=== PATIENT | female | born 1975 | race Caucasian/White ===

== ENCOUNTER 2023-06-25 10:08 | Outpatient (CLI) | payer BC, SELFPAY | END 2023-06-25 10:09 | disposition home or self-care (01) | PROVIDERS: PCP Physician Assistant Medical; Visit Provider Family Medicine | DX: Z00.00 Encounter for general adult medical examination without abnormal findings (principal); Z13.6 Encounter for screening for cardiovascular disorders; Z13.29 Encounter for screening for other suspected endocrine disorder | CPT/HCPCS: 80053; 80061; 84443 ==

== ENCOUNTER 2023-07-05 07:27 | Outpatient (CLI) | payer BC, SELFPAY ==
--- NOTE | 2023-07-05 07:45 | CRLHL7_ITS ---
For Patients: As a result of the Cures Act, medical imaging exams and procedure reports are released immediately into your electronic medical record. You may view this report before your referring provider. If you have questions, please contact your health care provider. BILATGERAL DIAGNOSTIC MAMMOGRAM WITH COMPUTER-AIDED DETECTION AND TOMOSYNTHESIS CLINICAL HISTORY: RIGHT breast lump. COMPARISON: 05/25/2018, 12/07/2008. TECHNIQUE: Digital BILATERAL mammogram in 4 projections. Real-time ultrasound imaging of RIGHT breast with imaging documentation. BREAST COMPOSITION: Scattered fibroglandular densities. FINDINGS: 3D CC/MLO BILATERAL mammogram images submitted. No suspicious masses or architectural distortion. Benign intramammary lymph node RIGHT breast. No suspicious calcifications. Targeted RIGHT breast ultrasound performed in the area of concern at 11 o`clock 4 cm from the nipple. Normal breast tissue noted. No suspicious findings. IMPRESSION: No evidence of malignancy. RECOMMENDATIONS: Annual bilateral screening mammography. BI-RADS Category 2: Benign Results and recommendations discussed with the patient. Dictated by Mason Patterson MD @ 07/05/2023 8:47:06 AM DARRIN/gera DW/Dictated by: Mason Patterson MD @ 07/05/2023 8:47:00 AM (Electronically Signed)
--- NOTE | 2023-07-05 08:15 | CRLHL7_ITS ---
For Patients: As a result of the Century Cures Act, medical imaging exams and procedure reports are released immediately into your electronic medical record. You may view this report before your referring provider. If you have questions, please contact your health care provider. PLEASE SEE BILATERAL BREAST DIAGNOSTIC MAMMOGRAM OF SAME DAY. CRL:georgi EDWAR/Dictated by: Mason Patterson MD @ 07/05/2023 8:47:00 AM (Electronically Signed)
== END 2023-07-05 07:28 | disposition home or self-care (01) ==
LOC: MAMMO 07:28
PROVIDERS: PCP Physician Assistant Medical; Visit Provider Family Medicine
DX: N63.10 Unspecified lump in the right breast, unspecified quadrant (principal)
CPT/HCPCS: 76642; 77066; G0279

== ENCOUNTER 2023-07-28 16:57 | Outpatient (CLI) | payer BC, SELFPAY ==
[2023-07-28 22:13] LABS: Chlamydia DNA Amplified* NOT DETECTED (No Detected); GC DNA Amplified* NOT DETECTED (No Detected)
== END 2023-07-28 16:58 | disposition home or self-care (01) ==
PROVIDERS: PCP Physician Assistant Medical; Visit Provider Physician Assistant Medical
DX: R53.83 Other fatigue (principal); R74.8 Abnormal levels of other serum enzymes
CPT/HCPCS: 80076; 82306; 85730; 86617; 86703; 86803; 87491; 87591

== ENCOUNTER 2023-08-02 15:40 | Outpatient (CLI) | payer BC, SELFPAY ==
--- NOTE | 2023-08-02 16:00 | CRLHL7_ITS ---
For Patients: As a result of the Century Cures Act, medical imaging exams and procedure reports are released immediately into your electronic medical record. You may view this report before your referring provider. If you have questions, please contact your health care provider. INDICATION: MENORRHAGIA COMPARISON: none TECHNIQUE: 2D peck scale and color Doppler images were acquired of the pelvis using a transabdominal and transvaginal approach. FINDINGS: Sonographic images demonstrate a normal size and smooth outer contour of the uterus. Uterus measures 10.2 cm in length by 4.6 cm in AP diameter by 4.8 cm in transverse dimension. The myometrium has a heterogeneous echotexture. Intramural fibroid is present within the left mid uterus measuring 1.5 x 0.9 x 1.3 cm. The endometrial lining measures 10 mm in composite thickness. Endometrial cyst is present measuring 5 x 3 x 4 millimeters. The right ovary measures 2.2 x 1.7 x 1.6 cm in size and the left ovary measures 3.8 x 2.4 x 3.7 cm. The ovaries demonstrate normal arterial and venous blood flow on color Doppler analysis. There are no suspicious fluid collections within the cul-de-sac. Simple left ovarian cyst is present measuring 2.7 x 2.5 x 2.6 cm. IMPRESSION: Heterogeneous endometrium measuring 10 millimeters with an associated 5 millimeter endometrial cyst. 1.5 cm intramural fibroid. 2.7 cm simple left ovarian cyst. Dictated by Mason Patterson MD @ 08/05/2023 12:12:15 PM (Electronically Signed)
== END 2023-08-02 15:41 | disposition home or self-care (01) ==
LOC: US 15:43
PROVIDERS: PCP Physician Assistant Medical; Visit Provider Physician Assistant Medical
DX: N92.0 Excessive and frequent menstruation with regular cycle (principal); R93.89 Abnormal findings on diagnostic imaging of other specified body structures; D25.1 Intramural leiomyoma of uterus; N83.202 Unspecified ovarian cyst, left side; R74.8 Abnormal levels of other serum enzymes
CPT/HCPCS: 76830; 76856

== ENCOUNTER 2023-08-27 08:41 | Outpatient (CLI) | payer BC, SELFPAY ==
--- NOTE | 2023-08-27 10:42 | W.ANESCHARGE ---
Anesthesia Charges Start Date/Time Anesthesia Start Date: 08/27/23 Anesthesia Start Time: 09:56 Stop Date/Time Anesthesia Stop Date: 08/27/23 Anesthesia Stop Time: 10:38
== END 2023-08-27 08:42 | disposition home or self-care (01) ==
LOC: OP CLINIC 08:41
PROVIDERS: PCP Physician Assistant Medical; Visit Provider Surgery
DX: Z12.11 Encounter for screening for malignant neoplasm of colon (principal); K63.5 Polyp of colon; K64.9 Unspecified hemorrhoids; K57.30 Diverticulosis of large intestine without perforation or abscess without bleeding; Z86.010 Personal history of colon polyps; K21.9 Gastro-esophageal reflux disease without esophagitis
CPT/HCPCS: 00731; 43239; 45385; J2704

== ENCOUNTER 2023-09-14 07:59 | Emergency (ER) | payer OTHER, BC, SELFPAY ==
[2023-09-14 08:03] VITALS: BP 136/108; PULSE 80; RESP 16; TEMP 35.6; O2SAT 94; BMI 36.6
--- NOTE | 2023-09-14 08:12 | ED_ITS ---
HPI - General Adult General Time Seen by Provider: 08:12 Date Seen: 09/14/23 Chief complaint: Laceration/Wound Stated complaint: finger laceration Time Seen by Provider: 09/14/23 08:11 Source: patient Mode of arrival: ambulatory Limitations: no limitations History of Present Illness HPI narrative: Mildly is a 48-year-old female presents emergency department via private car with a right finger laceration. 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 Patient is left-hand dominant. Patient has bleeding controlled. Related Data Home Medications Medication Instructions Recorded Confirmed albuterol sulfate 90 mcg/actuation 2 inhalation PRN 06/25/23 09/09/23 aerosol inhaler sumatriptan succinate 25 mg tablet 25 mg PO 06/25/23 09/09/23 calcium carbonate 200 mg calcium 200 mg PO BID 08/27/23 09/09/23 (500 mg) chewable tablet (Tums) Previous Rx's Medication Instructions Recorded ipratropium 0.5 mg-albuterol 3 mg 1 ml inhalation QID #90 mL 06/25/23 (2.5 mg base)/3 mL nebulization soln Allergies Allergy/AdvReac Type Severity Reaction Status Date / Time bee venom protein (honey bee) Allergy Severe Verified 09/14/23 08:03 levofloxacin Allergy Severe tendon Verified 09/14/23 08:03 rupture morphine Allergy Severe Verified 09/14/23 08:03 amoxicillin Allergy Intermediate Hives Verified 09/14/23 08:03 Review of Systems Status of ROS: Reports: 10 or more systems reviewed and unremarkable except as noted in History and below [facility] Medical History (Updated 09/09/23 @ 14:49 by Chani Boudreaux PA-C) History of miscarriage ?Z87.59 - Personal history of other complications of , childbirth and the puerperium (ICD-10) History of squamous cell carcinoma ?Z85.89 - Personal history of malignant neoplasm of other organs and systems (ICD-10) Asthma ?J45.909 - Unspecified asthma, uncomplicated (ICD-10) Surgical History (Updated 09/09/23 @ 14:38 by Chani Boudreaux PA-C) History of esophagogastroduodenoscopy (EGD) (07/2023) ?Z98.890 - Other specified postprocedural states (ICD-10) History of tonsillectomy ?Z90.89 - Acquired absence of other organs (ICD-10) History of hernia repair ?Z98.890 - Other specified postprocedural states (ICD-10) ?Z87.19 - Personal history of other diseases of the digestive system (ICD-10) History of cholecystectomy ?Z90.49 - Acquired absence of other specified parts of digestive tract (ICD- 10) Family History (Updated 07/29/23 @ 17:27 by Chani Boudreaux PA-C) Other Diabetes High blood pressure Lung cancer Melanoma Pancreatic cancer Throat cancer Social History Non-prescribed substance use: denies use Little interest or pleasure in doing things: several days Feeling down, depressed, or hopeless: not at all Exam Narrative: Exam Narrative: General: No obvious distress sitting comfortably HEENT: Pupils equal round reactive to light. Extraocular muscles intact Heart: Normal sinus rhythm S1-S2 Abdomen: Soft nontender Muscle skeletal: Right index finger. Palmar side, at the DIP 1 cm laceration, active extension and flexion Neuro: Alert awake and oriented x3 Const: Vital Signs, click to edit/add: Vital Signs - 24 hr 09/14/23 08:03 Temperature 96.0 F L Pulse Rate [Pulse Oximeter] 80 Respiratory Rate 16 Blood Pressure [Le ft Upper Arm] 136/108 H Pulse Oximetry 94 Oxygen Delivery Me thod Room Air Course Course ED Course: 8:30 AM: AIDET performed, workup will include laceration repair, patient is up-to-date on her tetanus status, please see procedure note. Patient has full range of motion, no concern for tendon injury at this time. Reevaluation(s) Time of Reevaluation #1: 08:45 Reevaluation #2: Laceration repair complete, patient did well, patient to have sutures removed in 7-10 days time, at same-day Clinic or Urgent Care or primary care provide, written instructions given, reasons to return give. Vital Signs Vital signs: Initial Vital Signs Temperature 96.0 F L 09/14/23 08:03 Temperature Source Temporal Artery Scan 09/14/23 08:03 Pulse Rate 80 09/14/23 08:03 Pulse Rhythm Regular 09/14/23 08:03 Pulse Strength 3+ Normal 09/14/23 08:03 Respiratory Rate 16 09/14/23 08:03 Blood Pressure 136/108 H 09/14/23 08:03 Blood Pressure Mean 117 H 09/14/23 08:03 Blood Pressure Position Supine 09/14/23 08:03 Pulse Oximetry 94 09/14/23 08:03 Oxygen Delivery Method Room Air 09/14/23 08:03 Vital Signs Temperature 96.0 F L 09/14/23 08:03 Pulse Rate 80 09/14/23 08:03 Respiratory Rate 16 09/14/23 08:03 Blood Pressure 136/108 H 09/14/23 08:03 Pulse Oximetry 94 09/14/23 08:03 Oxygen Delivery Method Room Air 09/14/23 08:03 Temperature 96.0 F L 09/14/23 08:03 Pulse Rate 80 09/14/23 08:03 Respiratory Rate 16 09/14/23 08:03 Blood Pressure 136/108 H 09/14/23 08:03 Pulse Oximetry 94 09/14/23 08:03 Oxygen Delivery Method Room Air 09/14/23 08:03 Medications Administered Medications: Discontinued Medications Generic Name Dose Route Start Last Admin Trade Name Freq PRN Reason Stop Dose Admin Lidocaine HCl 30 ml 09/14/23 08:16 09/14/23 08:23 Lidocaine 1 % Pf 30 Ml INJECTION 30 ml ONCE PRN Administration Discharge Plan Discharge Instructions: Finger Laceration (ED) Additional Instructions: Bacitracin to the wound daily, to have sutures removed in 7-10 days time. Return if worsening swelling, redness or discharge. Activity Level: No Restrictions Prescriptions: No Action calcium carbonate [Tums] 200 mg calcium (500 mg) tablet,chewable 200 mg PO BID sumatriptan succinate 25 mg tablet 25 mg PO albuterol sulfate 90 mcg/actuation HFA aerosol inhaler 2 inhalation PRN ipratropium-albuterol 0.5 mg-3 mg(2.5 mg base)/3 mL solution for nebulization 1 ml inhalation QID Qty: 90 2RF Follow Up/Referrals: Chani Boudreaux PA-C [Primary Care Provider] - Stand Alone Forms: [facility] Info Instructions Procedures Laceration Laceration 1: Pre procedure diagnosis: finger laceration Post procedure diagnosis: right index finger laceration. Written consent by: patient Site marking: site marked Verification/time out: correct patient Name of person performing procedure: Reginaldo Hester Site: hand (right index finger) Side (If applicable): right Description: linear Depth: simple, single layer Local Anesthetic: lidocaine 1% Pre-repair: wound explored Skin layer closed with: nylon Size (cm): 4-0 Number of sutures: 3 Technique: simple, interrupted
[2023-09-14] MEDS: LIDOCAINE 1 % PF 30 ML INJECTION (08:23)
== END 2023-09-14 09:03 | disposition home or self-care (01) ==
LOC: ED 08:47
PROVIDERS: Emergency Provider Student in an Organized Health Care Education/Training Program; PCP Physician Assistant Medical
DX: S61.210A Laceration without foreign body of right index finger without damage to nail, initial encounter (principal); W26.0XXA Contact with knife, initial encounter; Y93.G3 Activity, cooking and baking; Y92.219 Unspecified school as the place of occurrence of the external cause; Y99.0 Civilian activity done for income or pay
CPT/HCPCS: 12001; 99283; 99284; J2001

== ENCOUNTER 2023-09-15 06:13 | Day surgery (SDC) | payer BC, SELFPAY ==
[2023-09-15] MEDS: LACTATED RINGERS 1000 ML 1,000 ML 100 ML IV (06:20)
[2023-09-15 06:30] VITALS: BP 113/85; PULSE 79; RESP 16; TEMP 36.6; O2SAT 95; BMI 37.0
[2023-09-15 06:31] LABS: Ur HCG Qualitative* Negative (Negative)
[2023-09-15] MEDS: SODIUM CHLORIDE 0.9 % (FLUSH) 10 ML SYRINGE IVF (06:35)
--- NOTE | 2023-09-15 06:55 | W.PM.H&PU ---
History & Physical Update History & Physical Update H&P Updates: Maude had an injury at work yesterday. She lacerated her right index finger while cutting a bagel. It was repaired at [place] [facility], 3 stitches required. No other interval changes to her health history since the last time we spoke.
[2023-09-15 07:17] LABS: Hemoglobin* 12.7 gm/dL (12.0-16.0)
--- NOTE | 2023-09-15 07:22 | W.PM.GYNPROC ---
Procedure Note Time Seen by Provider: 07:22 Date of procedure: 09/15/23 Procedure Description: Preoperative diagnosis: 48 year-old who has abnormal uterine bleeding - heavy menses, likely secondary to uterine polyp. Postoperative diagnosis: Same Procedure: Hysteroscopy, dilation and curettage, and Mirena IUD insertion for medical management of heavy menstrual bleeding. Anesthesia: Conscious sedation with paracervical block. Surgeon:Paloma Taylor MD Estimated blood loss: 5 mL UOP: 25 cc IVF: 500 cc Specimen: Endometrial curettings to pathology. Findings: Exam under anesthesia: Cervix palpates normal. Uterus: anteverted position, 7 week size, mobile, without nodularity/masses palpable. Adnexa were without fullness or nodularity. On hysteroscopy: Thickened endometrial lining. Possible sessile polyp on left posterior uterine surface. Procedure: Maude was taken to the operating where conscious sedation was found to be adequate. She was placed in the dorsal lithotomy position. An exam under anesthesia was performed with findings stated above. She was then prepped and draped in normal sterile manner. A bivalve metal speculum was placed in the vaginal canal. The cervix and vaginal canal appear normal. A paracervical block was placed using 1% lidocaine with epinephrine: 5 mL injected at the 4 and 8 o'clock positions on the cervix. The anterior lip of the cervix was then grasped with a long Allis clamp. The cervix was dilated to Hegar 6. The uterus sounded to 10 cm. The hysteroscope advanced into the uterus and a diagnostic hysteroscopy was performed with findings stated above. Normal saline was used as the insufflation medium. The soft tissue shaver was used to obtain global sampling. The hysteroscope was then removed. Fluid deficit at the end of the procedure 200 mL. Attention was then turned towards Mirena IUD insertion. The IUD is loaded into the insertion tube, inserted to the sounded depth, and the IUD is deployed. Insertion tube was removed. Strings are trimmed to 3 cm. There were no complications with insertion. Allis clamp was removed from the uterus and cervix. Excellent hemostasis noted. Nothing was used for hemostasis. The patient tolerated the procedure well. Sponge, lap and instruments counts were correct at the end of the procedure. The patient was awakened from anesthesia and taken to the recovery area in stable condition. Surgical debrief performed at the end of the procedure.
[2023-09-15 07:54] VITALS: BP 122/74; PULSE 74; RESP 16; TEMP 36.3; O2SAT 95
--- NOTE | 2023-09-15 08:03 | W.ANESCHARGE ---
Anesthesia Charges Start Date/Time Anesthesia Start Date: 09/15/23 Anesthesia Start Time: 07:14 Stop Date/Time Anesthesia Stop Date: 09/15/23 Anesthesia Stop Time: 07:55
--- NOTE | 2023-09-15 08:04 | W.ANESCHARGE ---
Anesthesia Charges Start Date/Time Anesthesia Start Date: 09/15/23 Anesthesia Start Time: 07:14 Stop Date/Time Anesthesia Stop Date: 09/15/23 Anesthesia Stop Time: 07:55
[2023-09-15 08:09] VITALS: BP 118/69; PULSE 68; RESP 16; O2SAT 96
[2023-09-15] MEDS: IBUPROFEN 600 MG TABLET PO (08:20)
[2023-09-15 08:24] VITALS: BP 130/77; PULSE 66; RESP 16; O2SAT 96
[2023-09-15 08:39] VITALS: BP 123/79; PULSE 60; RESP 16; O2SAT 98
--- NOTE | 2023-09-15 09:19 | SUR.OPER ---
Deficit 200
== END 2023-09-15 09:05 | disposition home or self-care (01) ==
PROVIDERS: PCP Physician Assistant Medical; Visit Provider Obstetrics & Gynecology
PROC: 0UDB8ZZ Extraction of Endometrium, Via Natural or Artificial Opening Endoscopic (ICD-10-PCS; CPT 58558; principal; 2023-09-15 07:15)
DX: N92.0 Excessive and frequent menstruation with regular cycle (principal); N93.8 Other specified abnormal uterine and vaginal bleeding; N84.0 Polyp of corpus uteri; Z30.430 Encounter for insertion of intrauterine contraceptive device; E66.9 Obesity, unspecified; Z68.37 Body mass index [BMI] 37.0-37.9, adult
CPT/HCPCS: 58558; 58300; 00952; 36415; 81025; 85018; 86850; 86900; 86901; 88305; 88342; A9270; J1885; J2250; J2405; J2704; J3010; J7120; J7298

== ENCOUNTER 2024-01-28 14:00 | Outpatient (RCR) | payer BC, SELFPAY | END 2024-05-27 23:59 | disposition home or self-care (01) | PROVIDERS: PCP Physician Assistant Medical; Visit Provider Nurse Practitioner Family | DX: M54.2 Cervicalgia (principal); G89.29 Other chronic pain; M54.50 Low back pain, unspecified; Z74.09 Other reduced mobility; R29.898 Other symptoms and signs involving the musculoskeletal system; Z51.89 Encounter for other specified aftercare | CPT/HCPCS: 97110; 97140; 97162 ==

== ENCOUNTER 2024-11-29 08:16 | Outpatient (CLI) | payer BC, SELFPAY ==
--- NOTE | 2024-11-29 08:30 | MR_ITS ---
EXAM: MRI of the LEFT KNEE, without contrast CLINICAL HISTORY: Ongoing left knee pain, swelling, stiffness. Evaluate for lateral meniscal tear and patellar fracture. COMPARISONS: Plain radiographs 11/20/2024. TECHNICAL: MR sequences of the left knee: sagittals: PD, PDFS coronals: PD, STIR axials: PD, T2 FS CONTRAST: None SEDATION: None FINDINGS: Bones: No fracture, bone marrow contusion, or other suspicious bone marrow signal abnormality. 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 Retinacula: The medial and lateral retinacula are intact. Fat pads: The infrapatellar, quadriceps, and prefemoral fat pads are unremarkable. Knee joint: Effusion: Small left knee joint effusion. Popliteal cyst: Small perforated popliteal cyst. Intra-articular bodies: None. Posteromedial corner: The semimembranosus and pes anserine tendons are intact. Medial compartment: Medial meniscus: Intact. Cartilage: 7 x 7 mm area of slight grade II chondromalacia over the weight- bearing portion of the medial femoral condyle. Lateral compartment: Lateral meniscus: Intact. Cartilage: 1.1 x 1.1 cm area of grade III chondromalacia over the central portion of the lateral tibial plateau and a 1.1 x 0.5 cm area of grade III chondromalacia over the posterior weightbearing portion of the lateral femoral condyle. Ligaments: Anterior cruciate ligament: Intact. Posterior cruciate ligament: Intact. Medial collateral ligament: Intact. Posterior oblique ligament: Intact. Fibular collateral ligament: Intact. Posterolateral corner: The distal biceps femoris tendon, iliotibial band, popliteus tendon, popliteus muscle, popliteofibular ligament, and arcuate ligament are intact. Extensor mechanism: Patellar tendon: Intact. Quadriceps tendon: Intact. IMPRESSION: 1. 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 2. 1.1 x 1.1 cm area of grade III chondromalacia over the central portion of the lateral tibial plateau and a 1.1 x 0.5 cm area of grade III chondromalacia over the posterior weightbearing portion of the lateral femoral condyle. 3. 7 x 7 mm area of slight grade II chondromalacia over the weight-bearing portion of the medial femoral condyle. 4. Small left knee joint effusion. Small perforated popliteal cyst. 5. No ligamentous injury or meniscal tear of the left knee. RCB Electronically signed on 11/29/2024 10:44:00 AM by Fabrizio Vivar M.D.
== END 2024-11-29 08:17 | disposition home or self-care (01) ==
LOC: MRI 08:18
PROVIDERS: PCP Physician Assistant Medical; Visit Provider Physician Assistant Surgical
DX: M25.562 Pain in left knee (principal); M22.42 Chondromalacia patellae, left knee; M94.262 Chondromalacia, left knee; M25.462 Effusion, left knee; M71.22 Synovial cyst of popliteal space [Baker], left knee; S89.92XA Unspecified injury of left lower leg, initial encounter
CPT/HCPCS: 73721

== ENCOUNTER 2025-01-08 19:37 | Emergency (ER) | payer BC, SELFPAY ==
[2025-01-08 19:43] VITALS: BP 136/85; PULSE 85; RESP 16; TEMP 36.9; O2SAT 95; BMI 43.2
--- OUTSIDE RECORDS SUMMARY | 2025-01-08 19:53 | XMS_ITS | Clinical Summary ---
Author Organization [facility] Address [address] [place] [id number] Care Team Providers Care Itinerant Teacher Assistant Name Role Phone Clinic, Marylu Sargent Unavailable [phone] Chani Boudreaux PA-C Primary Care Provider Allergies Active Allergy Reactions Criticality Noted Date Comments Bees 03/24/2017 Levaquin Swelling 05/05/2013 Morphine Sulfate Shortness Of Breath High 05/05/2013 Penicillins 05/06/2013 Adhesive Tape 03/24/2017 PAPER TAPE Medications loratadine (CLARITIN) 10 MG tablet Take 10 mg by mouth daily Active EPINEPHrine (EPIPEN/ADRENAC LICK/OR ANY BX GENERIC EQUIV) 0.3 MG/0.3ML injection 2-pack Inject 0.3 mLs (0.3 mg) into the muscle once as needed for anaphylaxis 0.6 mL 7 Active albuterol (PROAIR HFA/PROVENTIL HFA/VENTOLIN HFA) 108 (90 BASE) MCG/ACT InhalerIndicati ons:Asthma Inhale 2 puffs into the lungs as needed 1 Inhaler 7 Active albuterol (2.5 MG/3ML) 0.083% neb solution Inhale 2.5 mg into the lungs every 6 hours as needed 7 Active guaiFENesin-cod eine (ROBITUSSIN AC) 100-10 MG/5ML SOLN solution Take 5-10 mLs by mouth every 4 hours as needed for cough 120 mL 8 Active ipratropium - albuterol 0.5 mg/2.5 mg/3 mL (DUONEB) 0.5-2.5 (3) MG/3ML neb solution Take 1 vial (3 mLs) by nebulization every 6 hours as needed for shortness of breath / dyspnea or wheezing 360 mL 8 Active ibuprofen (ADVIL/MOTRIN) 200 MG tablet Take 200 mg by mouth every 4 hours as needed for mild pain Active oxyCODONE-aceta minophen (PERCOCET) 5-325 MG tablet Take 1 tablet by mouth every 6 hours as needed for severe pain Active SUMAtriptan (IMITREX) 25 MG tablet Take 25 mg by mouth at onset of headache for migraine Active promethazine (PHENERGAN) 25 MG tablet Take 1 tablet (25 mg) by mouth every 6 hours as needed for nausea 10 tablet 8 Active predniSONE (DELTASONE) 20 MG tablet Take two tablets (= 40mg) each day for 5 (five) days 10 tablet 9 Active oxyCODONE (ROXICODONE) 5 MG tablet Take 1 tablet (5 mg) by mouth every 6 hours as needed for pain 12 tablet 0 Active ibuprofen (ADVIL/MOTRIN) 200 MG tablet Take 2 tablets (400 mg) by mouth every 8 hours as needed for pain 30 tablet 0 Active cyclobenzaprine (FLEXERIL) 10 MG tablet Take 1 tablet (10 mg) by mouth 3 times daily as needed for muscle spasms 10 tablet 4 Active Active Problems Problem Noted Date Diagnosed Date Sprain of lumbar region 11/05/2010 11/05/2010 Family History Medical History Relation Comments Cancer Maternal Grandmother Cerebrovascular Disease Maternal Grandmother Diabetes Maternal Grandmother Hypertension Maternal Grandmother Cerebrovascular Disease Paternal Grandfather Hypertension Paternal Grandfather Relation Status Comments Maternal Grandmother Paternal Grandfather Social History Tobacco Use Types Packs/Day Years Used Date Smoking Tobacco: Never Smokeless Tobacco: Never Alcohol Use Standard Drinks/Week Comments No 0 (1 standard drink = 0.6 oz pur e alcohol) Adolescent Education Answer Date Record ed Getting School Help Needed Not on file 12/21 Comments No Sex and Gender Information Value Date Recorded Sex Assigned at Not on file 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 Gender Identity Not on file Sexual Orientation Not on file Last Filed Vital Signs Vital Sign Reading Time Taken Comments Blood Pressure 125/79 12/21/2023 8:44 PM CDT Pulse 84 12/21/2023 8:44 PM CDT Temperature 36.7 C (98.1 F) 12/21/2023 4:56 PM CDT Respiratory Rate 18 12/21/2023 8:44 PM CDT Oxygen Saturation 95% 12/21/2023 8:44 PM CDT Inhaled Oxygen Concentration - - Weight 114 kg (251 lb 5.2 oz) 12/21/2023 4:56 PM CDT Height 170.2 cm (5' 7) 12/21/2023 4:56 PM CDT Body Mass Index 39.36 12/21/2023 4:56 PM CDT Plan of Treatment Health Maintenance Due Date Last Done Comments ADVANCE CARE PLANNING 1976 ANNUAL REVIEW OF HM ORDERS 1976 CT COLONOGRAPHY 1976 FIT 1976 FLEX SIG 1976 sDNA (Cologuard) 1976 YEARLY PREVENTIVE VISIT 1979 COLONOSCOPY 1986 COLORECTAL CANCER SCREENING 1986 HEPATITIS C SCREENING 1994 HEPATITIS B IMMUNIZATION (1 of 3 - 19+ 3-dose series) 1995 LIPID 2016 MAMMO SCREENING 05/25/2020 05/25/2018 COVID-19 Vaccine (2 - season) 2024 11/04/2020 PHQ-2 (once per calendar year) 2024 INFLUENZA VACCINE (Season Ended) 2025 06/25/2023, 05/08/2021, 05/24/2018, Additional history exists PAP 07/28/2026 07/28/2023 ZOSTER IMMUNIZATION (1 of 2) 2026 DIABETES SCREENING 12/20/2026 12/21/2023, 0 04/19/2019, 08/21/2018, Additional history exists DTAP/TDAP/TD IMMUNIZATION (5 - Td or Tdap) 09/16/2033 09/16/2023, 02/08/2015, 05/03/2013, Additional history exists HIV SCREENING Completed 09/28/2014 Pneumococcal Vaccine: Pediatrics (0 to 5 Years) and At-Risk Patients (6 to 49 Years) Aged Out 01/28/2017 No longer eligible based on patient's age to complete this topic HPV IMMUNIZATION Aged Out No longer e ligible based on patient's age to complete this topic MENINGITIS IMMUNIZATION Aged Out No l onger eligible based on patient's age to complete this topic Procedures Procedure Name Priority Date/Time Associated Diagnosis Comments BASIC METABOLIC PANEL STAT 12/21/2023 5:01 PM CDT from Last 3 Months or Most Recently Relevant to Health Maintenance Results * (ABNORMAL) Basic metabolic panel (12/21/2023 5:01 PM CDT) Sodium 137 135 - 145 mmol/L 12/21/2023 5:32 PM CDT [facility] Comment:Reference intervals for this test were updated on 05/25/2023 to more accurately reflect our healthy population. There may be differences in the flagging of prior results with similar values performed with this method. Interpretation of those prior results can be made in the context of the updated reference intervals. Potassium 3.9 3.4 - 5.3 mmol/L 12/21/2023 5:32 PM CDT [facility] Chloride 101 98 - 107 mmol/L 12/21/2023 5:32 PM CDT [facility] Carbon Dioxide (CO2) 25 22 - 29 mmol/L 12/21/2023 5:32 PM CDT [facility] Anion Gap 11 7 - 15 mmol/L 12/21/2023 5:32 PM CDT [facility] Urea Nitrogen 13.2 6.0 - 20.0 mg/dL 12/21/2023 5:32 PM CDT [facility] Creatinine 0.49(L) 0.51 - 0.95 mg/dL 12/21/2023 5:32 PM CDT [facility] GFR Estimate >90 >60 mL/min/1. 73m2 12/21/2023 5:32 PM CDT [facility] Calcium 9.0 8.6 - 10.0 mg/dL 12/21/2023 5:32 PM CDT [facility] Glucose 86 70 - 99 mg/dL 12/21/2023 5:32 PM CDT [facility] Blood STRUCTURE OF LEFT UPPER LIMB / Unknown Venipuncture / Unknown 12/21/2023 5:01 PM CDT 12/21/2023 5:08 PM CDT us Nikita Le MD LAB - BLOOD ORDERABLES Fi nal Result [facility] [address] Lab (1st floor, no room number) [place] [address], [facility] from Last 3 Months or Most Recently Relevant to Health Maintenance [place] [facility] [place] [employer]URANCE Care Teams Itinerant Teacher Assistant Relationship Specialty Start Date End Date Chani Boudreaux PA-C [facility] [address] [place] [address] PCP - General Physician Quality Assurance Analyst 12/21/23 Gagandeep, Marylu Sargent [address] [place] [id number] 03/09/16
--- OUTSIDE RECORDS SUMMARY | 2025-01-08 19:53 | XMS_ITS | Encounter Summary ---
Author Organization [facility] Address [address] [place] [address] Care Team Providers Care Slurry Blender Name Role Phone Miladis Rubi MD Primary Care Provider [phone] Clinic, [facility] Sargent Primary Care Provider [phone] Miladis Rubi MD Unavailable [phone] Clinic, [facility]argent Unavailable [phone] Cherry Muñoz Primary Care Provid er Chani Boudreaux PA-C Primary Care Provider Reason for Referral * - Closed Specialty Diagnoses / Procedures Referred By Kevin chino Referred To Contact Diagnoses Unspecified complication of , antepartum SyalRenee MD [address] [place] [address] Phone: tel: fax: Referral ID Status Reason Start Date Expiration Date Visits Re quested Visits Authorized [id number] Closed 03/03/2013 08/30/2013 1 1 Question Answer MFM Location [facility] Number of fetuses 1 MFM Consultation w/Ultrasound Yes fax [phone] clinic name [facility] [phone] Comments >> Patient may proceed with recommendations for further testing as directed by the Maternal Medicine Specialist >> Specific reason for referral (issue/concern):limited outside scan Estimated Date of Delivery: 07-12-13 Your patient will be scheduled using [facility] Scheduling guidelines. If requesting Echo: MFM will determine appropriate location for exam due to indication. If requesting Lung Maturity Amnio: If results indicate lung maturity, induction or C/S is recommended within 36 hours. Please schedule accordingly. If NST is Non-Reactive will proceed with BPP Please be aware that coverage of these services is subject to the terms and limitations of your health insurance plan. Call member services at your health plan with any benefit or coverage questions. Please bring the following to your appointment: >> Any x-rays, CTs or MRIs which have been performed. Contact the facility where they were done to arrange for warehouse order picker prior to your scheduled appointment. Any new CT, MRI or other procedures ordered by your specialist must be performed at a [facility] or coordinated by your clinic's referral office. >> List of current medications >> This referral request >> Any documents/labs given to you for this referral Encounter Details Date Type Department Care Team (Late st Contact Info) Description 03/03/2013 Orders Only [facility] [place] [address] [place] [address] Renee Page MD [address] [facility] [address] [place], [place] [address] Unspecified complication of , antepartum (Primary Dx) Social History Tobacco Use Types Packs/Day Years Used Date Smoking Tobacco: Never Assessed Comments No Sex and Gender Information Value Date Recorded Sex Assigned at Not on file Legal Sex Female 3:38 AM LEASE BROKER Gender Identity Not on file Sexual Orientation Not on file documented as of this encounter Plan of Treatment Scheduled Referrals Name Type Priority Associated Diagnoses Orde r Schedule [facility] RE[facility] Referral Routine Unspecified complication of , antepartum 1 Occurrences starting 03/03/2013 until 08/30/2013 documented as of this encounter Visit Diagnoses Diagnosis Unspecified complication of , antepartum- Primary documented in this encounter Care Teams Slurry Blender Relationship Specialty Start Date End Date Miladis Rubi MD PCP - General 03/06/13 06/11/13 [facility], [address] [address] PCP - General 03/09/16 03/23/17 Cherry Muñoz [address] [place] [address] [address] PCP - General 03/24/17 12/20/23 Chani Boudreaux PA-C [facility] [address] [place] [address] PCP - General Physician Compliance Representative Dealer 12/21/23 Miladis Rubi MD 03/06/13 06/11/13 [facility] [address] [place] [address] 03/09/16 documented as of this encounter
--- OUTSIDE RECORDS SUMMARY | 2025-01-08 19:53 | XMS_ITS | Clinical Summary ---
Author Organization [facility] Address [address] [place] [address] Care Team Providers Care Shop Director Name Role Phone Alvaro Bullock MD Unavailable [phone] Allergies Active Allergy Reactions Criticality Noted Date Comments Amoxicillin Hives High 11/25/2008 Tolerated cephalexin August 2016 Venom-Honey Bee Anaphylaxis High 12/17/2016 Reyes Anaphylaxis High 03/17/2019 Levofloxacin Rash High 12/15/2008 At same time as metronidazole Nitroimidazoles Rash High 12/15/2008 At same time as levaquin Morphine Chest Pain 12/15/2008 Unlisted Allergen (Include Detail In Comments) Contact Dermatitis Medium 03/05/2017 Surgical skin preparation Adhesive Tape Rash High 12/15/2008 Medications SUMAtriptan (IMITREX) 25 mg tabletIndications :Intractable migraine without aura and without status migrainosus Take 1 tablet by mouth 2 times daily if needed for Migraine. Give at minimum 2hrs apart. Max Dose: 200mg per 24hrs. 12 tablet 7 Active fluticasone (50 mcg per actuation) nasal solution (FLONASE)Indicati ons:Acute maxillary sinusitis, unspecified Inhale 2 Sprays into both nostrils once daily. 1 Bottle 7 Active albuterol (PROVENTIL) 0.083 % neb solutionIndicatio ns:Mild intermittent asthma without complication (HC) Inhale 3 mL via a nebulizer every 6 hours if needed. 1 box 1 7 Active ibuprofen (ADVIL; MOTRIN) 600 mg tabletIndications :Incarcerated incisional hernia Take 1 tablet by mouth every 6 hours if needed for Pain. Maximum of 3200 mg in 24 hours. 40 tablet 08/05/2018 2:46 PM RESIDENTIAL SUPPORT WORKER 8 Active albuterol HFA (PROAIR HFA) 90 mcg/actuation inhalerIndication s:Moderate persistent asthma with exacerbation (HC) Inhale 2 Puffs by mouth every 4 hours if needed. 18 g 9 Active albuterol-ipratro pium (DUONEB) (2.5-0.5 mg) in 3 mL NEBULIZATION solutionIndicatio ns:Moderate persistent asthma with exacerbation (HC) Inhale 3 mL via a nebulizer every 6 hours if needed. NEBULIZE 1 VIAL EVERY 6 HOURS NEEDED FOR SHORTNESS OF BREATH OR WHEEZING 1 box 3 9 Active Active Problems Problem Noted Date Diagnosed Date Symptomatic cholelithiasis 02/17/2017 Overview (02/17/2017): Added automatically from request for surgery [id number] Anxiety 06/12/2016 Myalgia 04/02/2016 Morbid obesity 04/02/2016 Thrombocytopenia 07/31/2015 Overview (03/12/2016): Idiopathic per Oncology Did Rheumatology panel too with her diffuse pain Vaginal delivery 05/04/2015 Asthma 08/30/2013 Resolved Problems Problem Noted Date Diagnosed Date Resolved Date Threatened labor at term 02/06/201505/2015 Supervision of other normal 04/01/2013 08/30/2013 Elderly multigravida with an tepartum condition or complication 04/01/2013 08/30/2013 transiet aleration of awareness 04/01/2013 08/30/2013 Immunizations Immunization Administration Dates Next Due Influenza Virus, Unspecified 05/25/2017,05/09/20 16 Influenza, IIV3 (Age >=3 years) 05/16/2015,06/05 Influenza, IIV4 05/24/2018,05/14/2014 Pneumococcal Poly,23-Valent (Pneumovax) 01/29/20 17 Tdap 02/08/2015,05/03/2013,03/01/2011 Family History Medical History Relation Name Comments GI Disease Brother GI Disease Father Hypertension Father Thyroid Disease Maternal Aunt Heart Disease Maternal Grandfather Cancer Maternal Grandmother liver Diabetes Maternal Grandmother Allergies Mother Asthma Mother Diabetes Mother Osteoporosis Mother Stroke Mother Thyroid Disease Mother GI Disease Paternal Grandfather Cancer-breast No Family History Cancer-ovarian No Family History Relation Name Status Comments Brother Father Maternal Aunt Maternal Grandfather Maternal Grandmother Mother Paternal Grandfather Social History Tobacco Use Types Packs/Day Years Used Date Smoking Tobacco: Former Cigarettes 0.3 15 Smokeless Tobacco: Never Tobacco Cessation:Counseling Given: Yes Alcohol Use Standard Drinks/Week Comments Yes 0 (1 standard drink = 0.6 oz pur e alcohol) social PHQ-2 Answer Date Recorded PHQ-2 Score 1 03/17/2019 Comments No Sex and Gender Information Value Date Recorded Sex Assigned at Not on file Legal Sex Female 6:07 AM RESIDENTIAL SUPPORT WORKER Gender Identity Not on file Sexual Orientation Not on file 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 on file Not on file Not on f ile Obstetrics History Para Term AB IAB SAB Ectopic Multiple Livin g Live Births 4 2 2 1 1 2 Date Outcome GA Total Labor Labor/2nd/3rd Weight Sex Type Anes PTL Charity A1 A5 Name Clin 2011 Term M 06/2012 SAB 8w0d 06/2013 Term M Last Filed Vital Signs Vital Sign Reading Time Taken Comments Blood Pressure 155/105 10/30/2020 9:30 AM RESIDENTIAL SUPPORT WORKER Pulse 92 10/30/2020 9:30 AM RESIDENTIAL SUPPORT WORKER Temperature 36.3 C (97.4 F) 10/30/2020 9:30 AM RESIDENTIAL SUPPORT WORKER Respiratory Rate 18 10/30/2020 9:30 AM RESIDENTIAL SUPPORT WORKER Oxygen Saturation 95% 10/30/2020 9:30 AM RESIDENTIAL SUPPORT WORKER Inhaled Oxygen Concentration - - Weight 117.9 kg (260 lb) 10/30/2020 9:30 AM RESIDENTIAL SUPPORT WORKER Height 172.7 cm (5' 8) 10/30/2020 9:30 AM RESIDENTIAL SUPPORT WORKER Body Mass Index 39.53 10/30/2020 9:30 AM RESIDENTIAL SUPPORT WORKER Plan of Treatment Health Maintenance Due Date Last Done Comments Hepatitis C screening for age 18-79 1994 BMI (ht and wt on same day) for age 18+ 03/17/2020 03/17/2019, 07/26/2018, 06/23/2018, Additional history exists Depression screening for age 12+ 03/17/2020 03/17/2019, 05/27/2018, 05/25/2018, Additional history exists Colonoscopy through age 75 2021 Lipids for age 45-75 2021 02/07/2016 Mammogram for age 45-75 2021 05/25/2018, 12/07 COVID-19 vaccine series ( season) 2024 Tetanus booster 02/08/2025 02/08/2015, 11/2012 (Completed outside of [facility]), 05/03/2013, Additional history exists Influenza Vaccine (Season Ended) 2025 05/24/2018, 05/25/2017, 05/09/2016, Additional history exists Pap test for age 21-65 07/28/2028 , 07/28/2023, 02/12/2016, Additional history exists HIV for age 15-65 Completed 09/28/2014 Tdap Completed 02/08/2015, 11/2012, 03/01/2011 Pneumococcal series for age 6-49 Aged Out 01/28/2017 No longer eligible based on patient's age to complete this topic Medical Devices Implanted Type Area Physician Non Invasive Cardiologist Device Identifier Shelf Expiration Date Model / Serial / Lot Mesh Ventral 4.5in [facility] - [id number] Implanted:Qty: 1 on 08/04/2018 by Yony Kingston MD at [facility] N/A: Abdomen [employer] 03/26/2020 [id number] / / [id number] Procedures Procedure Name Priority Date/Time Associated Diagnosis Comments HPV HIGH RISK Routine 07/28/2023 4:45 PM RESIDENTIAL SUPPORT WORKER XR MAMMO TOMMIE BILAT DIAG Routine 05/25/2018 1:41 PM CDT Breast discharge LIPID PANEL W REFLEX MEASURED LDL Routine 02/07/2016 9:50 AM CDT Non morbid obesity, unspecified obesity type ANTI HIV 1/2 Routine 09/28/2014 2:34 PM RESIDENTIAL SUPPORT WORKER Supervision of other normal (HC) from Last 3 Months or Most Recently Relevant to Health Maintenance Results * HPV HIGH RISK (07/28/2023 4:45 PM RESIDENTIAL SUPPORT WORKER) TYPE 16 Negative Negative 08/04/2023 3:22 PM RESIDENTIAL SUPPORT WORKER [facility] TYPE 18 Negative Negative 08/04/2023 3:22 PM RESIDENTIAL SUPPORT WORKER [facility] OTHER HIGH RISK TYPES Negative Negative 08/04/2023 3:22 PM RESIDENTIAL SUPPORT WORKER [facility] Other (Cervical) 07/28/2023 4:45 PM RESIDENTIAL SUPPORT WORKER 08/02/2023 11:40 AM RESIDENTIAL SUPPORT WORKER Narrative [facility] - 08/04/2023 3:22 PM RESIDENTIAL SUPPORT WORKER HPV types 16, 18, 31, 33, 35, 39, 45, 51, 52, 56, 58, 59, 66 and 68 DNA were undetectable or below the pre-set threshold. Methodology: [employer] Stone 4800 HPV Test Chani Boudreaux PA-C MICROBIOLOGY Final Result [facility] [address] [place] [address], [place] * XR MAMMO TOMMIE BILAT DIAG (05/25/2018 1:41 PM CDT) Anatomical Region Laterality Modality BREASTS, Breast Left, Breast Right Bilateral Mammography 05/25/2018 1:41 PM CDT Narrative 05/25/2018 4:14 PM CDT [facility] XR MAMMO TOMMIE BILAT DIAG, US BREAST UNILATERAL LEFT LIMITED 05/25/2018 1:41 PM INDICATION: Milky left nipple discharge. COMPARISON: 12/07/2008. MAMMOGRAPHIC FINDINGS: Bilateral full-field digital diagnostic mammograms performed. The breasts are almost entirely fatty. Images evaluated with the assistance of CAD. Breast tomosynthesis was used in interpretation. No suspicious mass or calcifications. ULTRASOUND FINDINGS: Targeted ultrasound of the subareolar left breast was performed. Benign dilated ducts present measuring up to 3 mm in diameter. No intraductal mass or suspicious mass. IMPRESSION: ACR BI-RADS Category 2: Benign. Results given to the patient who should resume annual screening mammography. Procedure Note Carmela Callejas MD - 05/25/2018 [facility] XR MAMMO TOMMIE BILAT DIAG, US BREAST UNILATERAL LEFT LIMITED 05/25/2018 1:41 PM INDICATION: Milky left nipple discharge. COMPARISON: 12/07/2008. MAMMOGRAPHIC FINDINGS: Bilateral full-field digital diagnosticmammograms performed. The breasts are almost entirely fatty. Images evaluated withthe assistance of CAD. Breast tomosynthesis was used in interpretation. No suspicious mass or calcifications. ULTRASOUND FINDINGS: Targeted ultrasound of the subareolar left breastwas performed. Benign dilated ducts present measuring up to 3 mm in diameter.No intraductal mass or suspicious mass. IMPRESSION: ACR BI-RADS Category 2: Benign. Results given to the patient who should resume annual screeningmammography. Lisa Patel DO MAMMO Final Result * (ABNORMAL) LIPID PANEL W REFLEX MEASURED LDL (02/07/2016 9:50 AM CDT) CHOLESTEROL,TOTAL 200(H) 100 - 199 mg/dL 02/07/2016 2:45 PM CDT [facility] TRIGLYCERIDES 99 <150 mg/dL 02/07/2016 2:45 PM CDT [facility] HDL CHOLESTEROL 40(L) >40 mg/dL 02/07/2016 2:45 PM CDT [facility] NON-HDL CHOLESTEROL 160(H) <145 mg/dl 02/07/2016 2:45 PM CDT [facility] CHOL/HDL RATIO 5.00(H) <4.50 02/07/2016 2:45 PM CDT [facility] LDL CHOLESTEROL 140(H) <=130 mg/dL 02/07/2016 2:45 PM CDT [facility] PATIENT STATUS FASTING 02/07/2016 2:45 PM CDT [facility] Blood specimen (specimen) BLOOD SPECIMEN / Unknown Venipuncture / Unknown 02/07/2016 9:50 AM CDT 02/07/2016 9:50 AM CDT Cherry Cain MD CHEMISTRY F inal Result [facility] [address] [place] [address], [place] * ANTI HIV 1/2 (09/28/2014 2:34 PM RESIDENTIAL SUPPORT WORKER) HIV-1/HIV-2 ANTIBODY Non-Reacti ve Non-Reacti ve 09/29/2014 12:20 AM RESIDENTIAL SUPPORT WORKER [facility] Blood specimen (specimen) BLOOD SPECIMEN / Unknown Venipuncture / Unknown 09/28/2014 2:34 PM RESIDENTIAL SUPPORT WORKER 09/28/2014 2:34 PM RESIDENTIAL SUPPORT WORKER Narrative [facility] - 09/29/2014 12:20 AM RESIDENTIAL SUPPORT WORKER HIV-1 p24 and HIV-1/HIV-2 Ab not detected us Cherry Cain MD SEND OUTS F inal Result [facility] [address] [place] [address], from Last 3 Months or Most Recently Relevant to Health Maintenance Insurance [facility] WORKERS COMP WORKERS COMP Advance Directives * Full Code (Latest Code Status on File) Date Activated Date Inactivated Comments 08/04/2018 11:26 AM 08/04/2018 10:30 PM Question Answer Comments Code Status Discussion: Not Discussed * Full Code Date Activated Date Inactivated Comments 02/22/2017 10:13 AM 02/22/2017 6:35 PM * Full Code Date Activated Date Inactivated Comments 05/04/2015 6:06 PM 05/06/2015 3:30 PM * Full Code Date Activated Date Inactivated Comments 05/04/2015 10:03 AM 05/04/2015 6:06 PM * Full Code Date Activated Date Inactivated Comments 05/03/2015 2:29 PM 05/04/2015 9:42 AM Care Teams Shop Director Relationship Specialty Start Date End Date Alvaro Bullock MD Consulting Physician Dermatology 10/26/14
--- OUTSIDE RECORDS SUMMARY | 2025-01-08 20:32 | XMS_ITS | Clinical Summary ---
Author Organization [facility] Address [address] [place] [address] Care Team Providers Care Inspector Tester Sorter Name Role Phone Alvaro Bullock MD Unavailable [phone] Allergies Active Allergy Reactions Criticality Noted Date [...] 24 hours. 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 Not on file Not [...] Comments Blood Pressure 155/105 10/30/2020 9:30 AM METAL BURRER Pulse 92 10/30/2020 9:30 AM METAL BURRER Temperature 36.3 C (97.4 F) 10/30/2020 9:30 AM METAL BURRER Respiratory Rate 18 10/30/2020 9:30 AM METAL BURRER Oxygen Saturation 95% 10/30/2020 9:30 AM METAL BURRER Inhaled Oxygen Concentration - - Weight 117.9 kg (260 lb) 10/30/2020 9:30 AM METAL BURRER Height 172.7 cm (5' 8) 10/30/2020 9:30 AM METAL BURRER Body Mass Index 39.53 10/30/2020 9:30 AM METAL BURRER Plan of Treatment Health Maintenance Due Date [...] booster 02/08/2025 02/08/2015, 11/2012 (Completed outside of [facility]), 05/03/2013, Additional history exists Influenza Vaccine (Season Ended) 2025 05/24/2018, 05/25/2017, 05/09/2016, Additional history exists Pap test for age 21-65 07/28/2028 , 07/28/2023, 02/12/2016, Additional history exists HIV for age 15-65 Completed 09/28/2014 Tdap Completed 02/08/2015, 11/2012, 03/01/2011 Pneumococcal series for age 6-49 Aged Out 01/28/2017 No longer eligible based on patient's age to complete this topic Medical Devices Implanted Type Area Carpet Winder Device Identifier Shelf Expiration Date Model / Serial / Lot Mesh Ventral 4.[facility]in [facility] - [id number] Implanted:Qty: 1 on 08/04/2018 by Yony Kingston MD at [facility] N/A: Abdomen [employer] 03/26/2020 [id number] / / [id number] Procedures Procedure Name Priority Date/Time Associated Diagnosis Comments HPV HIGH RISK Routine 07/28/2023 4:45 PM METAL BURRER XR MAMMO TOMMIE BILAT DIAG Routine 05/25/2018 1:41 PM CDT Breast discharge LIPID PANEL W REFLEX MEASURED LDL Routine 02/07/2016 9:50 AM CDT Non morbid obesity, unspecified obesity type ANTI HIV 1/2 Routine 09/28/2014 2:34 PM METAL BURRER Supervision of other normal (HC) from Last 3 Months or Most Recently Relevant to Health Maintenance Results * HPV HIGH RISK (07/28/2023 4:45 PM METAL BURRER) TYPE 16 Negative Negative 08/04/2023 3:22 PM METAL BURRER [facility] TYPE 18 Negative Negative 08/04/2023 3:22 PM METAL BURRER [facility] OTHER HIGH RISK TYPES Negative Negative 08/04/2023 3:22 PM METAL BURRER [facility] Other (Cervical) 07/28/2023 4:45 PM METAL BURRER 08/02/2023 11:40 AM METAL BURRER [facility]ative [facility] - 08/04/2023 3:22 PM METAL BURRER HPV types 16, 18, 31, 33, 35, 39, 45, 51, 52, 56, 58, 59, 66 and 68 DNA were undetectable or below the pre-set threshold. Methodology: [employer] Stone 4800 HPV Test Chani Boudreaux PA-C MICROBIOLOGY Final Result [facility] [address] [place] [address], [place] * XR MAMMO TOMMIE BILAT DIAG (05/25/2018 1:41 PM CDT) Anatomical Region Laterality Modality BREASTS, Breast Left, Breast Right Bilateral Mammography 05/25/2018 1:41 PM CDT Narrative 05/25/2018 4:14 PM CDT [facility] XR MAMMO TOMMIE BILAT DIAG, [...] Procedure Note Carmela Callejas MD - 05/25/2018 [facility] XR MAMMO TOMMIE BILAT DIAG, [...] - 199 mg/dL 02/07/2016 2:45 PM CDT [facility] TRIGLYCERIDES 99 <150 mg/dL 02/07/2016 2:45 PM CDT [facility] HDL CHOLESTEROL 40(L) >40 mg/dL 02/07/2016 2:45 PM CDT [facility] NON-HDL CHOLESTEROL 160(H) <145 mg/dl 02/07/2016 2:45 PM CDT [facility] CHOL/HDL RATIO 5.00(H) <4.50 02/07/2016 2:45 PM CDT [facility] LDL CHOLESTEROL 140(H) <=130 mg/dL 02/07/2016 2:45 PM CDT [facility] PATIENT STATUS FASTING 02/07/2016 2:45 PM CDT [facility] Blood specimen (specimen) BLOOD SPECIMEN / Unknown Venipuncture / Unknown 02/07/2016 9:50 AM CDT 02/07/2016 9:50 AM CDT Cherry Cain MD CHEMISTRY F inal Result [facility] [address] [place] [address], [place] * ANTI HIV 1/2 (09/28/2014 2:34 PM METAL BURRER) HIV-1/HIV-2 ANTIBODY Non-Reacti ve Non-Reacti ve 09/29/2014 12:20 AM METAL BURRER [facility] Blood specimen (specimen) BLOOD SPECIMEN / Unknown Venipuncture / Unknown 09/28/2014 2:34 PM METAL BURRER 09/28/2014 2:34 PM METAL BURRER Narrative [facility] - 09/29/2014 12:20 AM METAL BURRER HIV-1 p24 and HIV-1/HIV-2 Ab not detected us Cherry Cain MD SEND OUTS F inal Result [facility] [address] [place] [address], from Last 3 Months or Most Recently Relevant to Health Maintenance Insurance [facility] WORKERS COMP WORKERS COMP Advance Directives [...] 2:29 PM 05/04/2015 9:42 AM Care Teams Inspector Tester Sorter Relationship Specialty Start Date End Date Alvaro Bullock MD Consulting Physician Dermatology 10/26/14
--- OUTSIDE RECORDS SUMMARY | 2025-01-08 20:32 | XMS_ITS | Encounter Summary ---
Author Organization [facility] Address [address] [place] [address] Care Team Providers Care Intelligence Officer Basic Name Role Phone Miladis Rubi MD Primary Care Provider [phone] Clinic, [facility] Primary Care Provider + [phone] Miladis Rubi MD Unavailable [phone] [facility], [facility] Unavailable [phone] Cherry Muñoz Primary Care Provid er Chani Boudreaux PA-C Primary Care Provider Reason for Referral * - Closed Specialty Diagnoses / Procedures Referred By Kevin chino Referred To Contact Diagnoses Unspecified complication of , antepartum SyalRenee MD [address] [place] [address] Phone: tel: fax: Referral ID Status Reason Start Date Expiration Date Visits Re quested Visits Authorized [id number] Closed 03/03/2013 08/30/2013 1 1 Question Answer MFM Location [facility] Number of fetuses 1 MFM Consultation w/Ultrasound Yes fax [phone] clinic name [facility] [phone] Comments >> Patient may proceed with recommendations for further testing as directed by the Maternal Medicine Specialist >> Specific reason for referral (issue/concern):limited outside scan Estimated Date of Delivery: 07-12-13 Your patient will be scheduled using [facility] Scheduling guidelines. If requesting Echo: MFM will [...] where they were done to arrange for machine pecan picker prior to your scheduled appointment. Any new CT, MRI or other procedures ordered by your specialist must be performed at a [facility] or coordinated by your clinic's referral office. >> List of current medications >> This referral request >> Any documents/labs given to you for this referral Encounter Details Date Type Department Care Team (Late st Contact Info) Description 03/03/2013 Orders Only [facility] [place] [address] [place] [address] Renee Page MD [address] [facility] [address] [place], [place] [id number] Unspecified complication of , antepartum (Primary Dx) Social History Tobacco Use Types Packs/Day Years Used Date Smoking Tobacco: Never Assessed Comments No Sex and Gender Information Value Date Recorded Sex Assigned at Not on file Legal Sex Female 3:38 AM BRIDGE SAW OPERATOR Gender Identity Not on file Sexual Orientation [...] Primary documented in this encounter Care Teams Intelligence Officer Basic Relationship Specialty Start Date End Date Miladis Rubi MD PCP - General 03/06/13 06/11/13 [facility], [address] [address] PCP - General 03/09/16 03/23/17 Cherry Muñoz [address] [place], [place] [address] [address] PCP - General 03/24/17 12/20/23 Chani Boudreaux PA-C [facility] [address] [place] [address] PCP - General Physician Cleaning Validation Consultant 12/21/23 Miladis Rubi MD 03/06/13 06/11/13 [facility] [address] [place] [id number] 03/09/16 documented as of this encounter
--- OUTSIDE RECORDS SUMMARY | 2025-01-08 20:32 | XMS_ITS | Clinical Summary ---
Author Organization [facility] Address [address] [place] [address] Care Team Providers Care Postulant Name Role Phone Clinic, [facility] Unavailable [phone] Chani Boudreaux PA-C Primary Care Provider Allergies [...] on file Legal Sex Female 3:38 AM CALL OR CONTACT CENTRE TEAM LEADER Gender Identity Not on file Sexual Orientation [...] LAB - BLOOD ORDERABLES Fi nal Result [facility] [address] Lab (1st floor, no room number) [place] [address], [facility] from Last 3 Months or Most Recently Relevant to Health Maintenance Insurance [place] [facility] [place] [employer] Care Teams Postulant Relationship Specialty Start Date End Date Chani Boudreaux PA-C [facility] [address] [place] [address] PCP - General Physician Fluid Jet Cutter Operator 12/21/23 [facility], Marylu Sargent [address] [place] [id number] 03/09/16
--- NOTE | 2025-01-08 20:34 | CRLHL7_ITS ---
For Patients: As a result of the Century Cures Act, medical imaging exams and procedure reports are released immediately into your electronic medical record. You may view this report before your referring provider. If you have questions, please contact your health care provider. INDICATION: Headache, visual changes TECHNIQUE: CT Head without i.v. contrast. Coronal and sagittal reformats were obtained. COMPARISON: None FINDINGS: CSF space: The ventricles are normal for age. Brain: No evidence of mass, acute infarction or hemorrhage is seen. No mass-effect or midline shift is seen. The brain parenchyma is otherwise normal in appearance with preservation of the peck-white matter junction. Calvarium: The visualized paranasal sinuses are well aerated. The mastoid air cells are clear. The visualized orbits are grossly unremarkable. The calvarium is unremarkable in appearance with no fractures identified. IMPRESSION: 1. No evidence of acute infarction, intracranial hemorrhage, or mass-effect seen. Please note that all CT scans at this facility use dose modulation, iterative reconstruction, and/or weight-based dosing when appropriate to reduce radiation dose to as low as reasonably achievable. Dictated by: Toby Rivas MD @ 01/08/2025 21:43:41 (Electronically Signed)
--- NOTE | 2025-01-08 20:36 | ED_ITS ---
HPI - General Adult General Chief complaint: Dizziness/Vertigo Stated complaint: Passed out 90 mins ago dizziness Time Seen by Provider: 01/08/25 19:41 History of Present Illness HPI narrative: This 49-year-old female comes in reporting visual changes that also included vertigo to where she was unable to remain standing. She did not have loss of consciousness and did not hurt herself when she went to the ground. She states that those symptoms have now completely resolved. She does have a history of migraine headaches with visual changes proceeding them but states that these symptoms were different and included vertigo. She arrives here now feeling back to normal but states that she does get some zingers on the left side of her face that are rather brief in duration. She reports some episodes in the past also where she states that she is unable to see out of her left eye temporarily. This happened about a week ago at which time she misstepped and fell at that time also. She does not have any prior history of temporal arteritis or polymyalgia rheumatica but does state that she has body aches and pains at times. Related Data Home Medications ?Medication ?Instructions ?Recorded ?Confirmed albuterol sulfate 90 mcg/actuation 2 inhalation PRN 06/25/23 12/04/24 aerosol inhaler sumatriptan succinate 25 mg tablet 25 mg PO 06/25/23 12/04/24 calcium carbonate (Tums) 200 mg PO BID 08/27/23 12/04/24 Previous Rx's ?Medication ?Instructions ?Recorded ipratropium 0.5 mg-albuterol 3 mg 1 ml inhalation QID #90 mL 06/25/23 (2.5 mg base)/3 mL nebulization soln acetaminophen 500 mg tablet 1,000 mg (2 x 500 mg) PO Q6H PRN 09/15/23 Pain 14 days #30 tabs ibuprofen 600 mg tablet 600 mg PO Q6H PRN Pain 14 days #30 09/15/23 tabs fluticasone propionate 230 2 puff inhalation BID #12 grams 01/20/24 mcg-salmeterol 21 mcg/actuation HFA inhaler (Advair HFA) fluticasone propionate 230 2 puff inhalation BID #12 grams 01/21/24 mcg-salmeterol 21 mcg/actuation HFA inhaler (Advair HFA) carbamazepine 200 mg tablet 100 mg (1/2 x 200 mg) PO BID #14 01/08/25 (Tegretol) tabs ketorolac 10 mg tablet 10 mg PO TID 5 days #15 tabs 01/08/25 Allergies Allergy/AdvReac Type Severity Reaction Status Date / Time bee venom protein (honey bee) Allergy Severe Verified 12/04/24 10:12 levofloxacin Allergy Severe tendon Verified 12/04/24 10:12 rupture morphine Allergy Severe Verified 12/04/24 10:12 amoxicillin Allergy Intermediate Hives Verified 12/04/24 10:12 Review of Systems Status of ROS: Reports: 10 or more systems reviewed and unremarkable except as noted in History and below Narrative: Constitutional: No fevers, no weight gain or loss. Eyes: No discharge. Visual changes as described above. HENT: No congestion, no sore throat, no ear pain. Cardiovascular: No chest pain, no palpitations. Respiratory: No shortness of breath, no wheezes, no cough. Gastrointestinal: No abdominal pain, no vomiting, no diarrhea. Genitourinary: No dysuria, no hematuria. Musculoskeletal: Normal range of motion. Skin: No rashes, no pruritis. Neurological: No weakness, sensory change, speech change. Brief vertigo symptoms. Endo/Heme/Allergies: No bruising or bleeding. No polydipsia. Pysch: no suicidality, no anxiety, no insomnia. All other systems reviewed and are negative. [facility] Medical History Cervical pain (neck) ?M54.2 - Cervicalgia (ICD-10) History of miscarriage ?Z87.59 - Personal history of other complications of , childbirth and the puerperium (ICD-10) History of squamous cell carcinoma ?Z85.89 - Personal history of malignant neoplasm of other organs and systems (ICD-10) Asthma ?J45.909 - Unspecified asthma, uncomplicated (ICD-10) Surgical History History of esophagogastroduodenoscopy (EGD) (07/2023) ?Z98.890 - Other specified postprocedural states (ICD-10) History of tonsillectomy ?Z90.89 - Acquired absence of other organs (ICD-10) History of hernia repair ?Z98.890 - Other specified postprocedural states (ICD-10) ?Z87.19 - Personal history of other diseases of the digestive system (ICD-10) History of cholecystectomy ?Z90.49 - Acquired absence of other specified parts of digestive tract (ICD-10) Family History Other Diabetes High blood pressure Lung cancer Melanoma Pancreatic cancer Throat cancer Social History Smoking Status: Former smoker What tobacco products do you use: cigarettes Smoking quit date/years: <= 15 years ago Do you use any of these nicotine containing products: None How often do you have a drink containing alcohol: monthly or less Alcohol type: beer How many standard drinks containing alcohol do you have on a typical day: 1 or 2 How often do you have six or more drinks on one occasion: Never AUDIT-C Alcohol total score: 1 Non-prescribed substance use: denies use Caffeine: Yes (1-3 cups of coffee per day) Are you using contraception or practicing any form of control: Yes (Abstence) Exam Narrative: Exam Narrative: Constitutional: Well-developed, well-nourished, no acute distress. HEENT: Normocephalic, atraumatic. Neck: Normal range of motion. Nontender. Supple. Heart: Regular. No murmurs. Normal rate. Intact distal pulses. Lungs: Clear to auscultation. No chest discomfort. No wheezes, rhonchi, or rales. Abdomen: Normal bowel sounds. Nontender. No rebound tenderness. Genitalia: Deferred. Back: No midline tenderness. Normal range of motion. Extremities: Normal range of motion. No injury. Skin: Intact. No rash. Warm. No erythema or pallor. Neurologic: No altered sensation. No weakness. Alert and oriented. No facial asymmetry. Tongue is midline. Bgiege-ju-zbui is normal. No pronator drift. Pressure Testing Technician strength is equal bilaterally. Able to raise each leg from the bed. Psychiatric: No suicidality. No anxiety or depression. No insomnia. Nursing notes and vitals signs are reviewed. Const: Vital Signs, click to edit/add: Vital Signs - 24 hr 01/08/25 19:43 01/08/25 21:18 Temperature 98.4 F Pulse Rate [Radial ] 85 81 Respiratory Rate 16 16 Blood Pressure [Le ft Upper Arm] 136/85 144/82 H Pulse Oximetry 95 95 Oxygen Delivery Me thod Room Air Room Air Course Vital Signs Vital signs: Initial Vital Signs Temperature 98.4 F 01/08/25 19:43 Temperature Source Temporal Artery Scan 01/08/25 19:43 Pulse Rate 85 01/08/25 19:43 Pulse Rhythm Regular 01/08/25 19:43 Respiratory Rate 16 01/08/25 19:43 Blood Pressure 136/85 01/08/25 19:43 Blood Pressure Mean 102 01/08/25 19:43 Pulse Oximetry 95 01/08/25 19:43 Oxygen Delivery Method Room Air 01/08/25 19:43 Vital Signs Temperature 98.4 F 01/08/25 19:43 Pulse Rate 85 01/08/25 19:43 Respiratory Rate 16 01/08/25 19:43 Blood Pressure 136/85 01/08/25 19:43 Pulse Oximetry 95 01/08/25 19:43 Oxygen Delivery Method Room Air 01/08/25 19:43 Temperature 98.4 F 01/08/25 19:43 Pulse Rate 81 01/08/25 21:18 Respiratory Rate 16 01/08/25 21:18 Blood Pressure 144/82 H 01/08/25 21:18 Pulse Oximetry 95 01/08/25 21:18 Oxygen Delivery Method Room Air 01/08/25 21:18 Medical Decision Making MDM Narrative Medical decision making narrative: This patient comes in with report of headache and associated visual changes. She does have history of migraine headaches and associated visual changes but these symptoms today were a bit different. A CT scan of the head is obtained and shows no acute findings. Additionally her lab results returned with reassuring findings. In particular her sed rate is normal range and C-reactive protein just slightly elevated. It is not likely that she has temporal arteritis or polymyalgia rheumatica. More likely her symptoms are related to a migraine. She does report some zingers that are brief pains that shoot across the side of her face and may be exhibiting some symptoms of trigeminal neuralgia. She is okay to be discharged home and received prescriptions for Toradol and Tegretol Lab Data Labs: Lab Results 01/08/25 Range/Units 21:00 WBC 9.90 (4.50-11.00) K/uL RBC 4.48 (4.00-5.20) m/uL Hgb 13.7 (12.0-16.0) gm/dL Hct 40.9 (33.0-51.0) % MCV 91 (80-100) fL MCH 31 (26-34) pg MCHC 34 (32-36) gm/dL RDW Coeff of Edvin 11.9 (11.5-15.5) % Plt Count 172 (140-440) K/uL Neut % (Auto) 72.1 H (42.0-72.0) % Lymph % (Auto) 19.4 L (20-44) % Sabine % (Auto) 7.2 (0.0-11.0) % Eos % (Auto) 0.7 (0.0-7.0) % Baso % (Auto) 0.4 (0.0-3.0) % Neut # (Auto) 7.10 H (1.7-7.0) K/uL Lymph # (Auto) 1.90 (0.90-2.90) K/uL Sabine # (Auto) 0.70 (0.00-0.90) K/UL Eos # (Auto) 0.07 (0.00-0.50) K/uL Baso # (Auto) 0.04 (0.00-0.30) K/uL Abs Immat Gran (auto) 0.02 (0.00-0.30) K/uL Imm/Tot Granulo (auto) 0.2 % ESR 18 (2-20) mm/hr Sodium 139 (135-149) mmol/L Potassium 4.1 (3.6-5.1) mmol/L Chloride 101 (96-114) mmol/L Carbon Dioxide 29 (20-32) mmol/L Anion Gap 9 (7-15) mEq/L BUN 15 (5-24) mg/dL Creatinine 0.6 (0.5-1.5) mg/dL Estimated Creat Clear 111.51 Estimated GFR 111 ml/min Glucose 101 (60-115) mg/dL Calcium 9.4 (8.4-10.6) mg/dL C-Reactive Protein 1.3 H (0.5-1.0) mg/dL Imaging Data CT scan - head: Radiologist's impression: No evidence of acute infarction, intracranial hemorrhage, or mass-effect seen. Discharge Plan Discharge Clinical Impression: Migraines Patient Disposition: Home, Self-Care Condition: Improved Additional Instructions: Take medications as needed and directed. Follow up with MD return if worsening. Prescriptions: New ketorolac 10 mg tablet 10 mg PO TID 5 Days Qty: 15 0RF carbamazepine [Tegretol] 200 mg tablet 100 mg PO BID Qty: 14 2RF No Action calcium carbonate [Tums] 200 mg calcium (500 mg) tablet,chewable 200 mg PO BID sumatriptan succinate 25 mg tablet 25 mg PO albuterol sulfate 90 mcg/actuation HFA aerosol inhaler 2 inhalation PRN ipratropium-albuterol 0.5 mg-3 mg(2.5 mg base)/3 mL solution for nebulization 1 ml inhalation QID Qty: 90 2RF acetaminophen 500 mg Tablet 1,000 mg PO Q6H PRN (Reason: Pain) 14 Days Qty: 30 0RF ibuprofen 600 mg Tablet 600 mg PO Q6H PRN (Reason: Pain) 14 Days Qty: 30 0RF fluticasone propion-salmeterol [Advair HFA] 230-21 mcg/actuation HFA aerosol inhaler 2 puff inhalation BID Qty: 12 1RF Rx Instructions: administer with spacer fluticasone propion-salmeterol [Advair HFA] 230-21 mcg/actuation HFA aerosol inhaler 2 puff inhalation BID Qty: 12 3RF Rx Instructions: 2 puffs twice daily Follow Up/Referrals: Chani Boudreaux PA-C [Primary Care Provider] - Stand Alone Forms: [employer] Info Instructions
[2025-01-08 21:18] VITALS: BP 144/82; PULSE 81; RESP 16; O2SAT 95
[2025-01-08 21:23] LABS: Basophils Absolute Auto 0.04 K/uL (0.00-0.30); Basophils Percent Auto 0.4 % (0.0-3.0); Eosinophils Absolute Auto 0.07 K/uL (0.00-0.50); Eosinophils Percent Auto 0.7 % (0.0-7.0); Hematocrit 40.9 % (33.0-51.0); Hemoglobin* 13.7 gm/dL (12.0-16.0); Immature Granulocytes Abs Auto 0.02 K/uL (0.00-0.30); Immature Granulocytes Pct Auto 0.2 %; Lymphocytes Percent Auto 19.4 % (20-44); Mean Corpuscular HGB Conc 34 gm/dL (32-36); Mean Corpuscular Hemoglobin 31 pg (26-34); Mean Corpuscular Volume 91 fL (80-100); Monocytes Percent Auto 7.2 % (0.0-11.0); Neutrophils Percent Auto 72.1 % (42.0-72.0); Platelet Count* 172 K/uL (140-440); RDW Coefficient of Variation % 11.9 % (11.5-15.5); Red Blood Count 4.48 m/uL (4.00-5.20)
[2025-01-08 21:24] LABS: Chloride* 101 mmol/L (96-114); Potassium* 4.1 mmol/L (3.6-5.1); Sodium* 139 mmol/L (135-149)
[2025-01-08 21:27] LABS: Anion Gap 9 mEq/L (7-15); Blood Urea Nitrogen* 15 mg/dL (5-24); Calcium* 9.4 mg/dL (8.4-10.6); Carbon Dioxide* 29 mmol/L (20-32); Creatinine* 0.6 mg/dL (0.5-1.5); Est. Creatinine Clearance* 111.51; Estimated Glomerular Filt Rate 111 ml/min; Glucose* 101 mg/dL (60-115)
[2025-01-08 21:30] LABS: C Reactive Protein* 1.3 mg/dL (0.5-1.0)
[2025-01-08 21:31] LABS: Slide Review Reflex No
[2025-01-08 22:06] LABS: Erythrocyte SedimentationRate* 18 mm/hr (2-20)
[2025-01-08] MEDS: KETOROLAC 10 MG TABLET PO (22:21)
== END 2025-01-08 22:34 | disposition home or self-care (01) ==
PROVIDERS: Emergency Provider Emergency Medicine Emergency Medical Services; PCP Physician Assistant Medical
DX: G43.909 Migraine, unspecified, not intractable, without status migrainosus (principal)
CPT/HCPCS: 36415; 70450; 80048; 85025; 85651; 86140; 99284; A9270

== ENCOUNTER 2025-02-09 17:03 | Outpatient (CLI) | payer BC, SELFPAY | END 2025-02-09 17:04 | disposition home or self-care (01) | PROVIDERS: PCP Physician Assistant Medical; Visit Provider Physician Assistant Medical | DX: K75.9 Inflammatory liver disease, unspecified (principal); R74.8 Abnormal levels of other serum enzymes | CPT/HCPCS: 80053; 82977; 86015; 86038; 86140; 86703 ==

== ENCOUNTER 2025-02-19 17:13 | Outpatient (CLI) | payer BC, SELFPAY ==
--- OUTSIDE RECORDS SUMMARY | 2025-01-21 01:09 | XMS_ITS | Encounter Summary ---
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 Name Role Phone Clinic, [facility] Unavailable [phone] Chani Boudreaux PA-C Primary Care Provider Reason for Visit * Reason Comments Abdominal Pain Encounter Details Date Type Department Care Team (Late st Contact Info) Description 01/21/2025 1:09 AM CDT - 01/21/2025 2:18 PM CDT Hospital Encounter [facility] PreOP/PostOP [address] [place] [id number] Yazmin Lehman, DO [facility] [address] [place] [address] Cherelle Saravia MD [address] [place] [address] Acute appendicitis with localized peritonitis, without perforation, abscess, or gangrene (Primary Dx); Appendicitis, unspecified appendicitis type; Urinary tract infection without hematuria, site unspecified; Sepsis, due to unspecified organism, unspecified whether acute organ dysfunction present (H) Discharge Disposition: Home or Self Care Social History Tobacco Use Types Packs/Day Years Used Date Smoking Tobacco: Never Smokeless Tobacco: Never Alcohol Use Standard Drinks/Week Comments No 0 (1 standard drink = 0.6 oz pur e alcohol) Adolescent Education Answer Date Record ed Getting School Help Needed Not on file 12/21 Interpersonal Safety Answer Date Record ed Do you feel physically and e motionally safe where you currently live? Yes 01/21/2025 Within the past 12 months, h ave you been hit, slapped, kicked or otherwise physically hurt by someone? No 01/21/2025 Within the past 12 months, h ave you been humiliated or emotionally abused in other ways by your partner or ex-partner? 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 Gender Identity Not on file Sexual Orientation Not on file documented as of this encounter Last Filed Vital Signs Vital Sign Reading Time Taken Comments Blood Pressure 109/80 01/21/2025 1:45 PM CDT Pulse 65 01/21/2025 1:45 PM CDT Temperature 36.6 C (97.8 F) 01/21/2025 1:30 PM CDT Respiratory Rate 16 01/21/2025 1:45 PM CDT Oxygen Saturation 98% 01/21/2025 1:45 PM CDT Inhaled Oxygen Concentration - - Weight 121.8 kg (268 lb 8.3 oz) 025 12:53 AM CDT Height 170.2 cm (5' 7) 01/21/2025 12:5 3 AM CDT Body Mass Index 42.06 01/21/2025 12:53 AM CDT documented in this encounter Discharge Summaries * Umm Sin PA-C - 01/21/2025 2:18 PM CDT Surgery Discharge Summary Maude Rivera Date of : 1975 Age: [age] year old Date of Admission: 01/21/2025 Date of Discharge: 01/21/2025 2:18 PM Admitting Physician: Cherelle Saravia MD Discharging Service: General Surgery Primary Provider: Chani Boudreaux Discharge Diagnosis: Principle Diagnosis: Urinary tract infection without hematuria, site unspecified [N39.0] Appendicitis, unspecified appendicitis type [K37] Sepsis, due to unspecified organism, unspecified whether acute organ dysfunction present (H) [A41.9] Brief HPI: Maude Rivera is a 49 year old year-old female who presented to the ER last night with lower abdominal pain. CT showed appendicitis. She had a positive U/A and some urinary symptoms possibly also a UTI. We discussed approaches to management and mutually agreed on a robotic appendectomy for this patient. Hospital Course: Maude Rivera underwent robot-assisted laparoscopic appendectomy without complications. Please see op note for further details. The patient recovered as anticipated. By time of discharge, she remained afebrile, was tolerating an oral diet, had adequate pain control on oral medications and was ambulating independently thus medically appropriate for discharge to home. Inpatient Consultations: No consultations were requested during this admission Procedures: Procedure(s): APPENDECTOMY, ROBOT-ASSISTED, LAPAROSCOPIC, USING DA MARK XI Disposition: Discharged to home Discharge Condition Discharge condition: Stable Discharge vitals: Blood pressure 109/80, pulse 65, temperature 97.8 ??F (36.6 ??C), resp. rate 16, height 1.702 m (5' 7), weight 121.8 kg (268 lb 8.3 oz), SpO2 98%, not currently . Discharge Medications: Discharge Medication List as of 01/21/2025 10:22 AM START taking these medications Details nitroFURantoin macrocrystal-monohydrate (MACROBID) 100 MG capsule Take 1 capsule (100 mg) by mouth 2 times daily for 7 days., Disp-14 capsule, R-0, E-Prescribe ondansetron (ZOFRAN ODT) 4 MG ODT tab Take 1 tablet (4 mg) by mouth every 8 hours as needed for nausea., Disp-5 tablet, R-0, E-Prescribe senna-docusate (SENOKOT-S/PERICOLACE) 8.6-50 MG tablet Take 1-2 tablets by mouth 2 times daily as needed for constipation., Disp-30 tablet, R-0, E-Prescribe !! oxyCODONE (ROXICODONE) 5 MG tablet Take 1 tablet (5 mg) by mouth every 4 hours as needed for moderate to severe pain., Disp-4 tablet, R-0, E-Prescribe !! - Potential duplicate medications found. Please discuss with provider. CONTINUE these medications which have NOT CHANGED Details albuterol (2.5 MG/3ML) 0.083% neb solution Inhale 2.5 mg into the lungs every 6 hours as needed, Historical albuterol (PROAIR HFA/PROVENTIL HFA/VENTOLIN HFA) 108 (90 BASE) MCG/ACT Inhaler Inhale 2 puffs intothe lungs as needed, Disp-1 Inhaler, R-0, Local Print cyclobenzaprine (FLEXERIL) 10 MG tablet Take 1 tablet (10 mg) by mouth 3 times daily as needed for muscle spasms, Disp-10 tablet, R-0, E-Prescribe guaiFENesin-codeine (ROBITUSSIN AC) 100-10 MG/5ML SOLN solution Take 5-10 mLs by mouth every 4 hours as needed for cough, Disp-120 mL, R-0, Local Print !! ibuprofen (ADVIL/MOTRIN) 200 MG tablet Take 2 tablets (400 mg) by mouth every 8 hours as needed for pain, Disp-30 tablet,R-0, Local Print !! ibuprofen (ADVIL/MOTRIN) 200 MG tablet Take 200 mg by mouth every 4 hours as needed for mild pain, Historical ipratropium - albuterol 0.5 mg/2.5 mg/3 mL (DUONEB) 0.5-2.5 (3) MG/3ML neb solution Take 1 vial (3 mLs) by nebulization every 6 hours as needed for shortness of breath / dyspnea or wheezing, Disp-360mL, R-0, Local Print loratadine (CLARITIN) 10 MG tablet Take 10 mg by mouth daily, 10 mg, Oral, DAILY, Until Discontinued, Historical !! oxyCODONE (ROXICODONE) 5 MG tablet Take 1 tablet (5 mg) by mouth every 6 hours as needed for pain, Disp-12 tablet,R-0, Local Print oxyCODONE-acetaminophen (PERCOCET) 5-325 MG tablet Take 1 tablet by mouth every 6 hours as needed for severe pain, Historical predniSONE (DELTASONE) 20 MG tablet Take two tablets (= 40mg) each day for 5 (five) days, Disp-10 tablet, R-0, Local Print promethazine (PHENERGAN) 25 MG tablet Take 1 tablet (25 mg) by mouth every 6 hours as needed for nausea, Disp-10 tablet, R-0, Local Print SUMAtriptan (IMITREX) 25 MG tablet Take 25 mg by mouth at onset of headache for migraine, Historical EPINEPHrine (EPIPEN/ADRENACLICK/OR ANY BX GENERIC EQUIV) 0.3 MG/0.3ML injection 2-pack Inject 0.3 mLs (0.3 mg) into the muscle once as needed for anaphylaxis, Disp-0.6 mL, R-0, Local Print !! - Potential duplicate medications found. Please discuss with provider. Discharge Instructions: After Care Instructions Diet Instructions Follow your surgeon's orders for any diet restrictions. If you did not receive any diet restrictions, you may drink clear liquids (apple juice, ron roman, 7- up, broth, etc.), and progress to your regular diet as you feel able. It is important to stay well-hydrated after surgery and drink plenty ofwater. Discharge Instructions - Comfort and Pain Management Pain after surgery is normal and expected. You will have some amount of pain after surgery. Your pain will improve with time. There are several things you can do to help reduce your pain including: rest, ice, and using pain medications as needed. Use pain interventions and don't wait until pain level is out of control. Contact your Surgeon Team if you have pain that persists or worsens after surgery despite rest, ice, and taking your medication(s) as prescribed. You may have a dry mouth, a sorethroat, muscles aches or trouble sleeping, and these symptoms should go away after 24 hours. Discharge Instructions - Rest Rest and relax for the next 24 hours. Make arrangements to have someone stay with you overnight, and avoid hazardous and strenuous activities. Do NOT make any important decisions for the next 24 hours. No Alcohol Do NOT drink alcoholic beverages for 24 hours following your surgery and while taking pain medications. No driving or operating machinery Do NOT drive any vehicle or operate mechanical equipment for 24 hours following the end of your surgery. Even though you may feel normal, your reactions may be affected by Anesthesia medication you received. Symptoms - Fever Management A low grade fever can be expected after surgery. Your Provider many have prescribed an Opioid pain medication that also contains acetaminophen (TYLENOL) that may help with Fever management. Do NOT take additional acetaminophen (TYLENOL) in combination with an Opioid/acetaminophen (TYLENOL) product.Read the labels on your Over The Counter (OTC) medications with care. Symptoms - Reduced Urine Output If it has been greater than 8 hours since you have urinated despite drinking plenty of water, call your Surgeon Team. When to call - Contact Surgeon Team You may experience symptoms that require follow-up before your scheduled appointment. Contact your Surgeon Team if you are concerned about pain control, large amount of bleeding, blood clots, constipation, or if you experience signs of infection (fever, growing tenderness at the surgery site, a large amount of drainage, severe pain, foul-smelling drainage, redness or swelling. When to call - Reach out to Urgent Care If you are experiencing uncontrolled Nausea and Vomiting, uncontrolled pain, inability to urinate and uncomfortable, and in need of immediate care, and you are NOT able to reach your Surgeon Team, goto an Urgent Care clinic. Do NOT go to the Emergency Room unless you have shortness of breath, chest pain, or other signs of a medical emergency. When to call - Reasons to Call 911 Call 911 immediately if you experience sudden-onset chest pain, arm weakness/numbness, slurred speech, or shortness of breath Our office will contact you in approximately 2-3 weeks to check on your progress and answer any questions you may have. If you are doing well, you will not need to return for a follow up appointment. If any concerns are identified over the phone, we will help you make an appointment to see a provider. If you have not received a phone call, have any questions or concerns, or would like to be seen,please call us at [phone] and ask to speak with our nurse. We are located at [address] [facility] [address], [place] [address] I did not personally see or examine the patient on the day of discharge. Summary was completed by chart review. Umm Sin PA-C Cosigned by Cherelle Saravia MD at 01/24/2025 3:19 PM CDT Associated attestation - Cherelle Saravia MD - 01/24/2025 3:19 PM CDT Physician Attestation I have reviewed and discussed with the advanced practice provider their discharge plan for Maude Rivera. I did not participate in a shared visit by interviewing or examining the patient and this should be billed as an advanced practice provider only discharge. Cherelle Saravia MD Date of Service (when I saw the patient): I did not personally see this patient today. documented in this encounter Discharge Instructions * Discharge Instructions* Silvana Tristan RN - 01/21/2025 9:29 AM CDT HOME CARE FOLLOWING APPENDECTOMY Jaleesa Thrasher, Jake Jeronimo, R. O???Lakisha Banegas J. Shaheen INCISIONAL CARE: Replace the bandage over your incision(s) until all drainage stops, or if more comfortable to have in place. If present, leave the steri-strips (white paper tapes) in place for 14 days after surgery.If Dermabond (a type of skin glue) is present, leave in place until it wears/flakes off (2-3 weeks). BATHING: OK to shower 48 hours after surgery. Avoid baths for 1 week after surgery. You may wash your hair at any time. Gently pat your incision dry after bathing. Do not apply lotions, creams, or ointments to incisions. ACTIVITY: Light Activity -- you may immediately be up and about as tolerated. Walking is encouraged, increaseas tolerated. Driving/Light Work-- when comfortable and off narcotic pain medications. Strenuous Work/Activity -- Progressively increase with time. Active Sports (running, biking, etc.) -- cautiously resume after 1 week. DISCOMFORT: Local anesthetic placed at surgery should provide relief for 4-8 hours. Begin taking pain pills before discomfort is severe. Take the pain medication with some food, when possible, to minimize side effects. Intermittent use of ice packs may help during the first 1-3 weeks after surgery. Expect gradual improvement. Recommend the following over the counter medications: - Ibuprofen (motrin) 600mg every 6 hours (max 2,400mg per day) - Tylenol (acetaminophen) 500-1000mg every 6 hours (max 4,000mg per day) - Take with food if GI upset occurs - If additional pain medication is needed, take the narcotic that you were prescribed. Qkba-tfb-vxqnsqb anti-inflammatory medications (i.e. Ibuprofen/Advil/Motrin or Naprosyn/Aleve) may be used per package instructions in addition to or while tapering off the narcotic pain medications to decrease swelling and sensitivity. DO NOT TAKE these Anti-inflammatory medications if your primary physician has advised against doing so, or if you have acid reflux, ulcer, or bleeding disorder, or take blood-thinner medications. Call your primary physician or the surgery office if you have medication questions. You may have decreased energy level for 1-2 weeks after surgery related to your recovery. DIET: Start with liquids and gradually resume your regular diet as tolerated. Consider eating yogurt or taking a probiotic to help your gut parviz (good bacteria in the bowel/colon) return to normal whiletaking or after receiving antibiotics. Drink plenty of fluids. While taking pain medications, consider use of a stool softener, increase your fiber in your diet, or add a fiber supplement (like Metamucil, Citrucel) to help prevent constipation - a possible side effect of pain medications. NAUSEA: If nauseated from the anesthetic/pain meds; rest in bed, get up cautiously with assistance, and drink clear liquids (juice, tea, broth). FOLLOW-UP AFTER SURGERY: -Our office will contact you approximately 2-3 weeks after surgery to check on your progress and answer any questions you may have. If you are doing well, you will not need to return for an office appointment. If any concerns are identified over the phone, we will help you make an appointment to see a provider. -If you have not received a phone call, have any questions or concerns, or would like to be seen, please call us at [phone]. We are located at: [address] [facility], [address]; [place] [address] -CONTACT US IF THE FOLLOWING DEVELOPS: 1. A fever that is above 101?? 2. Increased redness, warmth, drainage, bleeding, or swelling. 3. Pain that is not relieved by rest/ice and your prescription. 4. Increasing pain after 48 hours. 5. Drainage that is thick, cloudy, yellow, green or white. 6. Any other questions or concerns. FREQUENTLY ASKED QUESTIONS: Q: How should my incision look? A: Normally your incision will appear slightly swollen with light redness directly along the incision itself as it heals. It may feel like a bump or ridge as the healing/scarring happens, and over time (3-4 months) this bump or ridge feeling should slowly go away. In general, clear or pink watery drainage can be normal at first as your incision heals, but should decrease over time. Q: How do I know if my incision is infected? A: Look at your incision for signs of infection, like redness around the incision spreading to surrounding skin, or drainage of cloudy or foul-smelling drainage. If you feel warm, check your temperature to see if you are running a fever. If any of these things occur, please notify the nurse at our office. We may need you to come intothe office for an incision check. Q: How do I take care of my incision? A: If you have a dressing in place - Starting the day after surgery, replace the dressing 1-2 timesa day until there is no further drainage from the incision. At that time, a dressing is no longer needed. Try to minimize tape on the skin if irritation is occurring at the tape sites. If you have significant irritation from tape on the skin, please call the office to discuss other method of dressing your incision. Small pieces of tape called ???steri-strips?? may be present directly overlying your incision; these may be removed 10 days after surgery unless otherwise specified by your surgeon. If these tapes start to loosen at the ends, you may trim them back until they fall off or are removed. A: If you had ???Dermabond?? tissue glue used as a dressing (this causes your incision to look shiny with a clear covering over it) - This type of dressing wears off with time and does not require more dressings over the top unless it is draining around the glue as it wears off. Do not apply ointments or lotions over the incisions until the glue has completely worn off. Q: There is a piece of tape or a sticky ???lead?? still on my skin. Can I remove this? A: Sometimes the sticky ???leads?? used for monitoring during surgery or for evaluation in the emergency department are not all removed while you are in the hospital. These sometimes have a tab or metal dot on them. You can easily remove these on your own, like taking off a band-aid. If there is agel substance under the ???lead?? , simply wipe/clean it off with a washcloth or paper towel. Q: What can I do to minimize constipation (very hard stools, or lack of stools)? A: Stay well hydrated. Increase your dietary fiber intake or take a fiber supplement -with plenty of water. Walk around frequently. You may consider an nlmc-jnm-lipkkyx stool-softener. Your Pharmacist can assist you with choosing one that is stocked at your pharmacy. Constipation is also one of themost common side effects of pain medication. If you are using pain medication, be pro- active and try to PREVENT problems with constipation by taking the steps above BEFORE constipation becomes a problem. Q: What do I do if I need more pain medications? A: Call the office to receive refills. Be aware that certain pain meds cannot be called into a pharmacy and actually require a paper prescription. A change may be made in your pain med as you progress thru your recovery period or if you have side effects to certain meds. --Pain meds are NOT refilled after 5pm on weekdays, and NOT AT ALL on the weekends, so please look ahead to prevent problems. Q: Why am I having a hard time sleeping now that I am at home? A: Many medications you receive while you are in the hospital can impact your sleep for a number ofdays after your surgery/hospitalization. Decreased level of activity and naps during the day may also make sleeping at night difficult. Try to minimize day-time naps, and get up frequently during theday to walk around your home during your recovery time. Sleep aides may be of some help, but are not recommended for long-term use. Q: I am having some back discomfort. What should I do? A: This may be related to certain positioning that was required for your surgery, extended periods of time in bed, or other changes in your overall activity level. You may try ice, heat, acetaminophen, or ibuprofen to treat this temporarily. Note that many pain medications have acetaminophen in them and would state this on the prescription bottle. Be sure not to exceed the maximum of 4000mg per day of acetaminophen. If the pain you are having does not resolve, is severe, or is a flare of back pain you have had on other occasions prior to surgery, please contact your primary physician for further recommendations or for an appointment to be examined at their office. Q: Why am I having headaches? A: Headaches can be caused by many things: caffeine withdrawal, use of pain meds, dehydration, highblood pressure, lack of sleep, over-activity/exhaustion, flare-up of usual migraine headaches. If you feel this is related to muscle tension (a band-like feeling around the head, or a pressure at thelow-back of the head) you may try ice or heat to this area. You may need to drink more fluids (try electrolyte drink like Gatorade), rest, or take your usual migraine medications. If your headaches do not resolve, worsen, are accompanied by other symptoms, or if your blood pressure is high, please call your primary physician for recommendation and/or examination. Q: I am unable to urinate. What do I do? A: A small percentage of people can have difficulty urinating initially after surgery. This includes being able to urinate only a very small amount at a time and feeling discomfort or pressure in thevery low abdomen. This is called ???urinary retention?? , and is actually an urgent situation. Proceed to your nearest Emergency department for evaluation (not an Urgent Care Center). Sometimes the bladder does not work correctly after certain medications you receive during surgery, or related to certain procedures. You may need to have a catheter placed until your bladder recovers. When planning to go to an Emergency department, it may help to call the ER to let them know you are coming in for this problem after a surgery. This may help you get in quicker to be evaluated. If you have symptoms of a urinary tract infection, please contact your primary physician for the proper evaluation and treatment. If you have other questions, please call the office Wednesday thru Wednesday between 8am and 4:30pm to discuss with the Nurse or Physician Valve Setter. # There is a surgeon ENTRY LEVEL CHEMIST on weekday evenings and over the weekend in case of urgent need only, and may be contacted at the same number. If you are having an emergency, call 911 or proceed to your nearest emergency department. Today you received Toradol, an antiinflammatory medication similar to Ibuprofen. You should not take other antiinflammatory medication, such as Ibuprofen, Motrin, Advil, Aleve, Naprosyn, etc until 4pm. * Attachments The following attachments cannot be sent through Care Everywhere. * (s) After Anesthesia (Sleep Medicine) (Austrian) documented in this encounter Medications at Time of Discharge albuterol (PROAIR HFA/PROVENTIL HFA/VENTOLIN HFA) 108 (90 BASE) MCG/ACT InhalerIndication s:Asthma Inhale 2 puffs into the lungs as needed 1 Inhaler 05/20/2017 EPINEPHrine (EPIPEN/ADRENACLI CK/OR ANY BX GENERIC EQUIV) 0.3 MG/0.3ML injection 2-pack Inject 0.3 mLs (0.3 mg) into the muscle once as needed for anaphylaxis 0.6 mL 03/24/2017 ibuprofen (ADVIL/MOTRIN) 200 MG tablet Take 200 mg by mouth every 4 hours as needed for mild pain ondansetron (ZOFRAN ODT) 4 MG ODT tabIndications:Ac ione appendicitis with localized peritonitis, without perforation, abscess, or gangrene Take 1 tablet (4 mg) by mouth every 8 hours as needed for nausea. 5 tablet 01/21/2025 senna-docusate (SENOKOT-S/ZA LACE) 8.6-50 MG tabletIndications :Acute appendicitis with localized peritonitis, without perforation, abscess, or gangrene Take 1-2 tablets by mouth 2 times daily as needed for constipation. 30 tablet 01/21/2025 SUMAtriptan (IMITREX) 25 MG tablet Take 25 mg by mouth at onset of headache for migraine albuterol (2.5 MG/3ML) 0.083% neb solution Inhale 2.5 mg into the lungs every 6 hours as needed 05/27/2017 cyclobenzaprine (FLEXERIL) 10 MG tablet Take 1 tablet (10 mg) by mouth 3 times daily as needed for muscle spasms 10 tablet 12/21/2023 5 guaiFENesin-codei ne (ROBITUSSIN AC) 100-10 MG/5ML SOLN solution Take 5-10 mLs by mouth every 4 hours as needed for cough 120 mL 03/29/2018 5 ibuprofen (ADVIL/MOTRIN) 200 MG tablet Take 2 tablets (400 mg) by mouth every 8 hours as needed for pain 30 tablet 04/11/2020 5 ipratropium - albuterol 0.5 mg/2.5 mg/3 mL (DUONEB) 0.5-2.5 (3) MG/3ML neb solution Take 1 vial (3 mLs) by nebulization every 6 hours as needed for shortness of breath / dyspnea or wheezing 360 mL 03/29/2018 5 loratadine (CLARITIN) 10 MG tablet Take 10 mg by mouth daily 5 nitroFURantoin macrocrystal-mono hydrate (MACROBID) 100 MG capsuleIndication s:Acute appendicitis with localized peritonitis, without perforation, abscess, or gangrene Take 1 capsule (100 mg) by mouth 2 times daily for 7 days. 14 capsule 01/21/2025 5 oxyCODONE (ROXICODONE) 5 MG tabletIndications :Acute appendicitis with localized peritonitis, without perforation, abscess, or gangrene Take 1 tablet (5 mg) by mouth every 4 hours as needed for moderate to severe pain. 4 tablet 01/21/2025 5 oxyCODONE (ROXICODONE) 5 MG tablet Take 1 tablet (5 mg) by mouth every 6 hours as needed for pain 12 tablet 04/11/2020 5 oxyCODONE-acetami nophen (PERCOCET) 5-325 MG tablet Take 1 tablet by mouth every 6 hours as needed for severe pain 5 predniSONE (DELTASONE) 20 MG tablet Take two tablets (= 40mg) each day for 5 (five) days 10 tablet 04/19/2019 5 promethazine (PHENERGAN) 25 MG tablet Take 1 tablet (25 mg) by mouth every 6 hours as needed for nausea 10 tablet 08/21/2018 5 documented as of this encounter H&P Notes * Cherelle Saravia MD - 01/21/2025 7:57 AM CDT [facility] General Surgery H&P Maude Rivera Age: [age] year old Date of : 1975 HPI: The patient has been experiencing abdominal pain for the past 1 day. The pain started RLQ, LLQ, andgeneralized and is currently in the RLQ, LLQ, and lower back. Negative for associated fever, chills, nausea, and vomiting. Review Of Systems: The 10 point review of systems is negative other than noted in the HPI. PMH: Past Medical History: Diagnosis Date Asthma Depressive disorder Migraine, unspecified, without mention of intractable migraine without mention of status migrainosus depression after first baby was on meds PSH: Past Surgical History: Procedure Laterality Date CHOLECYSTECTOMY HERNIA REPAIR skin cancer[ 2006 sqamous cells removed from back TONSILLECTOMY 1981 Allergies: Allergies Allergen Reactions Morphine Sulfate Shortness Of Breath Bees Levaquin Swelling Pcn [Penicillins] Tape [Adhesive Tape] PAPER TAPE Home Medications: No current outpatient medications on file. Social History: Social History Tobacco Use Smoking status: Never Smokeless tobacco: Never Substance Use Topics Alcohol use: No Drug use: No Family History: Family History Problem Relation Age of Onset Hypertension Paternal Grandfather Cerebrovascular Disease Paternal Grandfather Cancer Maternal Grandmother Diabetes Maternal Grandmother Hypertension Maternal Grandmother Cerebrovascular Disease Maternal Grandmother Physical Exam: BP 134/81 Pulse 67 Temp (!) 96.3 ??F (35.7 ??C) Resp 16 Ht 1.702 m (5' 7) Wt 121.8 kg (268 lb 8.3 oz) SpO2 98% BMI 42.06 kg/m?? General appearance: Resting Comfortably in bed, no apparent distress Eyes: conjunctiva clear, pupils equally round and reactive. Lungs: Clear to auscultation bilaterally Heart: regular rate and rhythm Abdomen: obese Tenderness: present: RLQ moderate, negative rebound tenderness Masses: none Organomegaly: none Extremities: Without clubbing, cyanosis, edema Neurologic: Grossly intact times four extremities, alert and oriented times three Psychiatric: Mood and affect are appropriate Skin: Without lesions or rashes Labs Reviewed: Lab Results Component Value Date WBC 12.8 01/21/2025 WBC 11.1 04/19/2019 Lab Results Component Value Date HGB 13.0 01/21/2025 HGB 13.7 04/19/2019 Lab Results Component Value Date PLT 174 01/21/2025 PLT 121 04/19/2019 Last Basic Metabolic Panel: Lab Results Component Value Date NA 141 01/21/2025 NA 139 04/19/2019 Lab Results Component Value Date POTASSIUM 3.8 01/21/2025 POTASSIUM 4.1 04/19/2019 Lab Results Component Value Date CHLORIDE 104 01/21/2025 CHLORIDE 106 04/19/2019 Lab Results Component Value Date GIL 9.4 01/21/2025 GIL 8.6 04/19/2019 Lab Results Component Value Date CO2 26 01/21/2025 CO2 30 04/19/2019 Lab Results Component Value Date BUN 14.0 01/21/2025 BUN 9 04/19/2019 Lab Results Component Value Date CR 0.64 01/21/2025 CR 0.59 04/19/2019 Lab Results Component Value Date GLC 119 01/21/2025 GLC 86 04/19/2019 Radiology: All imaging studies reviewed by me. Results for orders placed or performed during the hospital encounter of 01/21/25 CT Abdomen Pelvis w Contrast Narrative EXAM: CT ABDOMEN PELVIS W CONTRAST LOCATION: [facility] DATE: 01/21/2025 INDICATION: Abdominal pain, flank pain. COMPARISON: CT abdomen and pelvis on 06/23/2018 and CTA of the chest, abdomen, and pelvis on 12/21/2023. TECHNIQUE: CT scan of the abdomen and pelvis was performed after the injection of 100 mL Isovue 370intravenously. Multiplanar reformats were obtained. Dose reduction techniques were used. FINDINGS: LOWER CHEST: Mild basilar pulmonary opacities, likely atelectasis. 5 mm right lower lobe nodule (series 3 image 17) and 5 mm left lower lobe nodule (series 3 image 10) are not significantly changed as compared to the 12/21/2023 exam and hence likely benign. ABDOMEN/PELVIS: HEPATOBILIARY: No suspicious focal hepatic lesion. Right upper quadrant post- cholecystectomy clips. PANCREAS: No main pancreatic ductal dilatation or definite solid pancreatic mass. SPLEEN: No splenomegaly. Splenule along the spleen. ADRENAL GLANDS: No adrenal nodules. KIDNEYS/BLADDER: No radiodense kidney/ureteral stones or hydronephrosis in either kidney. BOWEL: No abnormally dilated bowel loops. Colonic diverticulosis, predominantly of the sigmoid colon, without CT evidence of acute diverticulitis. The appendix appears mildly dilated measuring 8 mm in diameter with mild periappendiceal fat stranding (series 3 image 147). PERITONEUM: No evidence of free fluid in the abdomen and pelvis. No free peritoneal or portal venous gas. PELVIC ORGANS: An IUD is visualized within the endometrial cavity. VASCULATURE: Unremarkable. LYMPH NODES: No significant abdominopelvic lymphadenopathy. MUSCULOSKELETAL: No suspicious osseous lesion. Impression IMPRESSION: 1. The appendix appears mildly dilated measuring 8 mm in diameter with mild periappendiceal fat stranding, findings could represent early acute appendicitis. 2. Colonic diverticulosis, predominantly of the sigmoid colon, without CT evidence of acute diverticulitis. ASSESSMENT/PLAN: The patient's history, physical exam, laboratory and imaging studies are suspicious for acute appendicitis. I have offered the patient a laparoscopic appendectomy. We have had a detailed discussion of nature of appendicitis, the procedure, its risks, benefits, alternatives, recovery, postop limitations, anesthesia, bleeding, postoperative infections, injury to adjacent organs and structures, open conversion, bowel resection, prolonged convalescence in the event of gangrene or perforation of the appendix, abdominal wall hernia. All questions have been answered to the best of my ability. She elects to proceed. Cherelle Saravia MD documented in this encounter ED Notes * Yadira Urban RN - 01/21/2025 6:07 AM CDT Report given to OR nurse, patient ambulated to bathroom and changed into hospital gown. * Miladis Hansen RN - 01/21/2025 3:34 AM CDT Bed: ED15 Expected date: Expected time: Means of arrival: Comments: IN 5 * Miladis Hansen RN - 01/21/2025 3:30 AM CDT [facility] ED Nurse Handoff Report ED Chief complaint: Abdominal Pain . ED Diagnosis: Final diagnoses: Appendicitis, unspecified appendicitis type Urinary tract infection without hematuria, site unspecified Allergies: Allergies Allergen Reactions Morphine Sulfate Shortness Of Breath Bees Levaquin Swelling Pcn [Penicillins] Tape [Adhesive Tape] PAPER TAPE Code Status: Full Code Activity level - Baseline/Home: independent. Activity Level - Current: standby. Lift room needed: No. Bariatric: No Wide Area Network Administrator Needed: No Isolation: No. Infection: Not Applicable. Respiratory status: Room air Vital Signs (within 30 minutes): Vitals: 01/21/25 0053 01/21/25 005 BP: (!) 146/96 Pulse: 102 Resp: 20 Temp: 97.2 ??F (36.2 ??C) TempSrc: Temporal SpO2: 99% Weight: 121.8 kg (268 lb 8.3 oz) Height: 1.702 m (5' 7) Cardiac Rhythm: , Pain level: Patient confused: No. Patient Falls Risk: nonskid shoes/slippers when out of bed, patient and family education, and activity supervised. Elimination Status: Has voided Patient Report - Initial Complaint: abdominal pain. Focused Assessment: Pt is a 49 year old female with a past medical history significant for anxiety,depression, obesity, thrombocytopenia, and skin cancer who presents to the emergency department forevaluation of abdominal pain. She reports that at approximately 1630 this afternoon, she experienced the sudden onset of abdominal pain which she localizes to the bilateral sides of her abdomen, as well as her entire lower abdomen and suprapubic region. She describes this pain as a cramping sensation. Since the onset, she feels that her symptoms have worsened, and she is now experiencing this same pain radiating into her entire mid to lower back bilaterally. She did experience brief relief fromher pain at about 2130 pm, but this quickly returned with the same intensity. She rates the pain asa 8/10 in severity. She did take ibuprofen at about 1630 when the pain first began, but this did not provide significant relief. She reports feeling constipated yesterday, but did have a normal bowel movement this morning. She denies fever, chills, chest pain, nausea or episodes of emesis, shortness of breath, diarrhea, vaginal discharge/bleeding. Abnormal Results: Labs Ordered and Resulted from Time of ED Arrival to Time of ED Departure COMPREHENSIVE METABOLIC PANEL - Abnormal Result Value Sodium 141 Potassium 3.8 Carbon Dioxide (CO2) 26 Anion Gap 11 Urea Nitrogen 14.0 Creatinine 0.64 GFR Estimate >90 Calcium 9.4 Chloride 104 Glucose 119 (*) Alkaline Phosphatase 107 AST 25 ALT 28 Protein Total 7.7 Albumin 4.8 Bilirubin Total 0.2 ROUTINE UA WITH MICROSCOPIC REFLEX TO CULTURE - Abnormal Color Urine Yellow Appearance Urine Slightly Cloudy (*) Glucose Urine Negative Bilirubin Urine Negative Ketones Urine Trace (*) Specific [place] Urine 1.026 Blood Urine Trace (*) pH Urine 5.5 Protein Albumin Urine 30 (*) Urobilinogen Urine Normal Nitrite Urine Positive (*) Leukocyte Esterase Urine Moderate (*) Bacteria Urine Many (*) Mucus Urine Present (*) RBC Urine 4 (*) WBC Urine 19 (*) Squamous Epithelials Urine 3 (*) CBC WITH PLATELETS AND DIFFERENTIAL - Abnormal WBC Count 12.8 (*) RBC Count 4.26 Hemoglobin 13.0 Hematocrit 38.8 MCV 91 MCH 30.5 MCHC 33.5 RDW 12.3 Platelet Count 174 % Neutrophils 75 % Lymphocytes 17 % Monocytes 7 % Eosinophils 1 % Basophils 0 % Immature Granulocytes 0 NRBCs per 100 WBC 0 Absolute Neutrophils 9.6 (*) Absolute Lymphocytes 2.2 Absolute Monocytes 0.9 Absolute Eosinophils 0.1 Absolute Basophils 0.1 Absolute Immature Granulocytes 0.0 Absolute NRBCs 0.0 LIPASE - Normal Lipase 39 HCG QUALITATIVE - Normal hCG Serum Qualitative Negative LACTIC ACID WHOLE BLOOD WITH 1X REPEAT IN 2 HR WHEN >2 - Normal Lactic Acid, Initial 1.3 URINE CULTURE BLOOD CULTURE BLOOD CULTURE CT Abdomen Pelvis w Contrast Final Result IMPRESSION: 1. The appendix appears mildly dilated measuring 8 mm in diameter with mild periappendiceal fat stranding, findings could represent early acute appendicitis. 2. Colonic diverticulosis, predominantly of the sigmoid colon, without CT evidence of acute diverticulitis. Treatments provided: see MAR, notes, and flowsheets Family Comments: n/a OBS brochure/video discussed/provided to patient: N/A ED Medications: Medications ketorolac (TORADOL) injection 15 mg (15 mg Intravenous $Given 01/21/25 0153) sodium chloride 0.9% BOLUS 1,000 mL (1,000 mLs Intravenous $New Bag 01/21/25 0154) ondansetron (ZOFRAN) injection 4 mg (4 mg Intravenous $Given 01/21/25 0152) HYDROmorphone (PF) (DILAUDID) injection 0.5 mg (0.5 mg Intravenous $Given 01/21/25 0153) iopamidol (ISOVUE-370) solution 500 mL (100 mLs Intravenous $Given 01/21/25 0222) sodium chloride 0.9 % bag for CT scan flush (43 mLs Intravenous $Given 01/21/25 0222) Drips infusing: Yes For the majority of the shift this patient was Green. Interventions performed were n/a. Sepsis treatment initiated: No Cares/treatment/interventions/medications to be completed following ED care: follow orders ED Nurse Name: Miladis Hansen RN 3:30 AM * Yazmin Lehman, - 01/21/2025 1:19 AM CDT Emergency Department Note History of Present Illness Chief Complaint Abdominal Pain HPI Maude Rivera is a 49 year old female with a past medical history significant for anxiety, depression, obesity, thrombocytopenia, and skin cancer who presents to the emergency department for evaluation of abdominal pain. She reports that at approximately 1630 this afternoon, she experienced the sudden onset of abdominal pain which she localizes to the bilateral sides of her abdomen, as well as her entire lower abdomen and suprapubic region. She describes this pain as a cramping sensation. Since the onset, she feels that her symptoms have worsened, and she is now experiencing this same pain radiating into her entire mid to lower back bilaterally. She did experience brief relief from her pain at about 2130 pm, but this quickly returned with the same intensity. She rates the pain as a 8/10 in severity. She did take ibuprofen at about 1630 when the pain first began, but this did not provide significant relief. She reports feeling constipated yesterday, but did have a normal bowel movement this morning. She denies fever, chills, chest pain, nausea or episodes of emesis, shortness of breath, diarrhea, vaginal discharge/bleeding. Independent Historian None Review of External Notes I reviewed the ED note from 12/20/24, for which the patient was seen for evaluation of acute right sided thoracic back pain. Past Medical History Medical History and Problem List Asthma Depressive disorder migraine depression Sprain of lumbar region Cholelithiasis Anxiety Myalgia Morbid obesity Thrombocytopenia Skin cancer GERD Medications albuterol cyclobenzaprine Epinephrine guaiFENesin-codeine ipratropium - albuterol loratadine oxycodone prednisone promethazine Sumatriptan Surgical History Cholecystectomy Hernia repair Skin cancer removal T&A D&C Physical Exam Patient Vitals for the past 24 hrs: BP Temp Temp src Pulse Resp SpO2 Height Weight 01/21/25 0054 (!) 146/96 -- -- -- -- -- -- -- 01/21/25 0053 -- 97.2 ??F (36.2 ??C) Temporal 102 20 99 % 1.702 m (5' 7) 121.8 kg (268 lb 8.3 oz) Physical Exam Nursing note and vitals reviewed. Constitutional: Well nourished. Eyes: Conjunctiva normal. Pupils are equal, round, and reactive to light. ENT: Nose normal. Mucous membranes pink and moist. Neck: Normal range of motion. CVS: Sinus tachycardia. Normal heart sounds. Pulmonary: Lungs clear to auscultation bilaterally. No wheezes/rales/rhonchi. GI: Abdomen soft. Lower abdominal tenderness though greatest in RLQ. No rigidity or guarding. Bilateral CVA tenderness, R>L MSK: Moves all extremities Neuro: Alert. Follows simple commands. Skin: Skin is warm and dry. No rash noted. Psychiatric: Normal affect. Diagnostics Lab Results Labs Ordered and Resulted from Time of ED Arrival to Time of ED Departure COMPREHENSIVE METABOLIC PANEL - Abnormal Result Value Sodium 141 Potassium 3.8 Carbon Dioxide (CO2) 26 Anion Gap 11 Urea Nitrogen 14.0 Creatinine 0.64 GFR Estimate >90 Calcium 9.4 Chloride 104 Glucose 119 (*) Alkaline Phosphatase 107 AST 25 ALT 28 Protein Total 7.7 Albumin 4.8 Bilirubin Total 0.2 ROUTINE UA WITH MICROSCOPIC REFLEX TO CULTURE - Abnormal Color Urine Yellow Appearance Urine Slightly Cloudy (*) Glucose Urine Negative Bilirubin Urine Negative Ketones Urine Trace (*) Specific [place] Urine 1.026 Blood Urine Trace (*) pH Urine 5.5 Protein Albumin Urine 30 (*) Urobilinogen Urine Normal Nitrite Urine Positive (*) Leukocyte Esterase Urine Moderate (*) Bacteria Urine Many (*) Mucus Urine Present (*) RBC Urine 4 (*) WBC Urine 19 (*) Squamous Epithelials Urine 3 (*) CBC WITH PLATELETS AND DIFFERENTIAL - Abnormal WBC Count 12.8 (*) RBC Count 4.26 Hemoglobin 13.0 Hematocrit 38.8 MCV 91 MCH 30.5 MCHC 33.5 RDW 12.3 Platelet Count 174 % Neutrophils 75 % Lymphocytes 17 % Monocytes 7 % Eosinophils 1 % Basophils 0 % Immature Granulocytes 0 NRBCs per 100 WBC 0 Absolute Neutrophils 9.6 (*) Absolute Lymphocytes 2.2 Absolute Monocytes 0.9 Absolute Eosinophils 0.1 Absolute Basophils 0.1 Absolute Immature Granulocytes 0.0 Absolute NRBCs 0.0 LIPASE - Normal Lipase 39 HCG QUALITATIVE - Normal hCG Serum Qualitative Negative LACTIC ACID WHOLE BLOOD WITH 1X REPEAT IN 2 HR WHEN >2 - Normal Lactic Acid, Initial 1.3 URINE CULTURE BLOOD CULTURE BLOOD CULTURE Imaging CT Abdomen Pelvis w Contrast Final Result IMPRESSION: 1. The appendix appears mildly dilated measuring 8 mm in diameter with mild periappendiceal fat stranding, findings could represent early acute appendicitis. 2. Colonic diverticulosis, predominantly of the sigmoid colon, without CT evidence of acute diverticulitis. EKG None Independent Interpretation ED Course Medications Administered Medications ketorolac (TORADOL) injection 15 mg (15 mg Intravenous $Given 01/21/25 0153) sodium chloride 0.9% BOLUS 1,000 mL (1,000 mLs Intravenous $New Bag 01/21/25 0154) ondansetron (ZOFRAN) injection 4 mg (4 mg Intravenous $Given 01/21/25 0152) HYDROmorphone (PF) (DILAUDID) injection 0.5 mg (0.5 mg Intravenous $Given 01/21/25 0153) iopamidol (ISOVUE-370) solution 500 mL (100 mLs Intravenous $Given 01/21/25 0222) sodium chloride 0.9 % bag for CT scan flush (43 mLs Intravenous $Given 01/21/25 0222) Procedures Procedures Discussion of Management None ED Course ED Course as of 01/21/25 0430 Lynette January 21, 2025 0120 I obtained history and examined the patient as noted above. 0325 Patient reports pain controlled at this time 0329 I spoke to general surgeon Dr. Saravia. Will plan for OR in AM Additional Documentation None Medical Decision Making / Diagnosis [facility] Diagnoses: None MIPS None MDM Maude Rivera is a 49 year old female presenting with predominately complaints of lower abdominal pain. She is mildly tachycardic on arrival though overall nontoxic. Labs with noted leukocytosis though lactate normal. UA suggest concerns for infection and she did undergo formal CT scan which showsconcerns for early appendicitis. Blood culture sent given she is meeting sepsis criteria though no severe sepsis. She was given IV Zosyn after allergies reviewed; states has tolerated PCN in the pastbut not amoxicillin, had a mild rash. Agreeable to zosyn trial. I did speak to general surgery who will plan to take patient to the OR. Her pain was controlled during her time in the ED and she remained hemodynamically stable. Disposition The patient was admitted to the hospital. Diagnosis ICD-10-CM 1. Appendicitis, unspecified appendicitis type K37 Case Request: APPENDECTOMY, ROBOT-ASSISTED, LAPAROSCOPIC, USING DA MARK XI Case Request: APPENDECTOMY, ROBOT-ASSISTED, LAPAROSCOPIC, USING DA MARK XI 2. Urinary tract infection without hematuria, site unspecified N39.0 3. Sepsis, due to unspecified organism, unspecified whether acute organ dysfunction present (H) A41.9 Discharge Medications New Prescriptions No medications on file Scribe Disclosure: I, Mandy Rothman, am serving as a scribe at 1:34 AM on 01/21/2025 to document services personally performed by Yazmin Lehman DO based on my observations and the provider's statements to me. Yazmin Lehman DO 01/21/25 0432 * Pura Manzanares RN - 01/21/2025 12:51 AM CDT Diffuse abd pain started at 2330. Now radiating into back. Denies n/v/d. documented in this encounter Miscellaneous Notes * Op Note - Cherelle Saravia MD - 01/21/2025 8:42 AM CDT [facility] General Surgery Operative Note Pre-operative diagnosis: Appendicitis, unspecified appendicitis type [K37] Post-operative diagnosis Acute appendicitis without rupture Procedure: Procedure(s): APPENDECTOMY, ROBOT-ASSISTED, LAPAROSCOPIC, USING DA MARK XI Surgeon(s): Surgeons and Role: * Cherelle Saravia MD - Primary * Klaus Dueñas PA-C - Assisting The Physician Valve Setter was medically necessary for their expertise in prepping, placement of robotic ports, exchange of instruments and passing suture into the abdomen, and closure. Estimated blood loss: 2ml Specimens: ID Type Source Tests Collected by Time Destination 1 : appendix Tissue Appendix SURGICAL PATHOLOGY EXAM Cherelle Saravia MD 01/21/2025 9:22 AM Findings: Acute appendicitis Indication for Procedure: This is a 49 year old female who presented to the ER last night with lower abdominal pain. CT showed appendicitis. She had a positive U/A and some urinary symptoms possibly also a UTI. We discussed approaches to management and mutually agreed on a robotic appendectomy for this patient. Description of procedure: Patient was brought to the operating room, placed on the operating table in supine position. Anesthesia was induced. Her pressure points were padded and she was secured with a safety strap. A timeout was called to verifythe patient, site of procedure and procedure to be performed. The abdomen was entered with a optiview trocar in the left upper quadrant under direct visualization. Pneumoperitoneum was established. The abdomen was surveyed and there were a few adhesions to the anterior abdominal wall IPOM mesh. 3 additional 8mm robotic ports were then placed in the left lower quadrant, left mid abdomen and left suprapubic region, and the 5mm LUQ port was replaced with an 8mm robotic port. The patient was placed in Trendelenburg with right side up. The robot was then docked. Abdominal wall adhesions were taken down. The cecum, terminal ileum, and appendix were identified in the right lower quadrant. The mesoappendix was ligated with bipolar cautery and a clip was used tosecure the mesoappendiceal artery, and then taken down with hot scissors to the base of the appendix. The appendix base was divided with the sureform 30mm stapler with a white load. The appendix was placed in an endocatch bag and removed through the left lateral abdomen port site. There was no significant fascial defect requiring fascial closure. The cavity was inspected and there was adequate hemostasis. The trocars were then removed and pneumoperitoneum evacuated. The skin was closed with 4-0 suture. Sterile dressings were applied. At the end of the operation, all sponge, instrument, and needle counts were correct. Cherelle Saravia MD documented in this encounter Plan of Treatment Not on file documented as of this encounter Procedures Procedure Name Priority Date/Time Associated Diagnosis Comments SURGICAL PATHOLOGY EXAM Routine 01/21/2025 9:22 AM CDT LAPAROSCOPY, SURGICAL; APPENDECTOMY 01/21/2025 8:19 AM CDT Appendicitis, unspecified appendicitis type CT ABDOMEN PELVIS W CONTRAST STAT 01/21/2025 2:48 AM CDT BLOOD CULTURE STAT 01/21/2025 1:53 AM CDT LACTIC ACID WHOLE BLOOD WITH 1X REPEAT IN 2 HR WHEN >2 STAT 01/21/2025 1:52 AM CDT BLOOD CULTURE STAT 01/21/2025 1:52 AM CDT ROUTINE UA WITH MICROSCOPIC REFLEX TO CULTURE STAT 01/21/2025 1:02 AM CDT URINE CULTURE STAT 01/21/2025 1:02 AM CDT EXTRA TUBE STAT 01/21/2025 12:55 AM CDT EXTRA RED TOP TUBE STAT 01/21/2025 12 :55 AM CDT EXTRA BLUE TOP TUBE STAT 01/21/2025 1 2:55 AM CDT CBC WITH PLATELETS AND DIFFERENTIAL STAT 01/21/2025 12:55 AM CDT CBC WITH PLATELETS & DIFFERENTIAL STAT 01/21/2025 12:55 AM CDT LIPASE STAT 01/21/2025 12:55 AM CDT HCG QUALITATIVE STAT 01/21/2025 12:55 AM CDT COMPREHENSIVE METABOLIC PANEL STAT 01/21/2025 12:55 AM CDT documented in this encounter Results * Surgical Pathology Exam (01/21/2025 9:22 AM CDT) Case Report Surgical Pathology Report Case: [id number] Authorizing Provider: Cherelle Saravia MD Collected: 01/21/2025 09:22 AM Ordering Location: [facility] Received: 01/21/2025 09:51 AM Main OR Pathologist: Ladonna Larsen MD Specimen: Appendix, appendix 01/24/2025 4:08 PM CDT LABORATORY Final Diagnosis Appendix, appendectomy: - Suppurative appendicitis with serositis 01/24/2025 4:08 PM CDT LABORATORY at 1608 CDT Clinical Information Procedure: APPENDECTOMY, ROBOT-ASSISTED, LAPAROSCOPIC, USING DA MARK XI Pre-op Diagnosis: Appendicitis, unspecified appendicitis type [K37] Post-op Diagnosis: K37 - Appendicitis, unspecified appendicitis type [ICD-10-CM] 01/24/2025 4:08 PM CDT LABORATORY Gross Description A(1). Appendix, appendix: Received in formalin, labeled with the patient's name, MR Number and a ppendix Length: 5.8 cm Diameter: 0.7 cm Perforations: None identified Serosal surface: Red-purple and shaggy with focal exudate present at the proximal end Mucosa: Purple-peck and smooth Lumen diameter: 0.3 cm Lumen contents: Devoid of contents Fecaliths: Not present Wall thickness: 0.2-0.3 cm Other findings: The resection margin is inked blue Senior Administrative Assistant sections are submitted in formalin as follows: A1-resection margin (inked blue), half of the distal tip and education courses sales representative appendix cross sections. EDILSON Joyner(ASCP)CM 01/23/2025 8:43 AM 01/24/2025 4:08 PM CDT LABORATORY Microscopic Description A formal microscopic examination has been performed 01/24/2025 4:08 PM CDT LABORATORY Performing Labs The technical component of this testing was completed at [facility]. Stain controls for all stains resulted within this report have been reviewed and show appropriate reactivity. 01/24/2025 4:08 PM CDT LABORATORY Case Images 01/24/2025 4:08 PM CDT LABORATORY Tissue APPENDIX STRUCTURE / Unknown 01/21/2025 9:22 AM CDT 01/21/2025 9:51 AM CDT us Cherelle HOOD - HALLEY AP Final Result LABORATORY [facility] Lab [address] 1st floor, [address] [place] [address], [facility] [phone] LABORATORY [facility] Lab [address] [facility] Lab (1st floor, no room number) [place] [address] * CT Abdomen Pelvis w Contrast (01/21/2025 2:48 AM CDT) Anatomical Region Laterality Modality Abdomen/Pelvis, SUBRAD CT AIME DY, UMP CT ABDOMEN PELVIS, RAD CT Computed Tomography 01/21/2025 2:48 AM CDT Impressions 01/21/2025 3:20 AM CDT IMPRESSION: 1. The appendix appears mildly dilated measuring 8 mm in diameter with mild periappendiceal fat stranding, findings could represent early acute appendicitis. 2. Colonic diverticulosis, predominantly of the sigmoid colon, without CT evidence of acute diverticulitis. Narrative 01/21/2025 3:20 AM CDT EXAM: CT ABDOMEN PELVIS W CONTRAST LOCATION: [facility] DATE: 01/21/2025 INDICATION: Abdominal pain, flank pain. COMPARISON: CT abdomen and pelvis on 06/23/2018 and CTA of the chest, abdomen, and pelvis on 12/21/2023. TECHNIQUE: CT scan of the abdomen and pelvis was performed after the injection of 100 mL Isovue 370 intravenously. Multiplanar reformats were obtained. Dose reduction techniques were used. FINDINGS: LOWER CHEST: Mild basilar pulmonary opacities, likely atelectasis. 5 mm right lower lobe nodule (series 3 image 17) and 5 mm left lower lobe nodule (series 3 image 10) are not significantly changed as compared to the 12/21/2023 exam and hence likely benign. ABDOMEN/PELVIS: HEPATOBILIARY: No suspicious focal hepatic lesion. Right upper quadrant post-cholecystectomy clips. PANCREAS: No main pancreatic ductal dilatation or definite solid pancreatic mass. SPLEEN: No splenomegaly. Splenule along the spleen. ADRENAL GLANDS: No adrenal nodules. KIDNEYS/BLADDER: No radiodense kidney/ureteral stones or hydronephrosis in either kidney. BOWEL: No abnormally dilated bowel loops. Colonic diverticulosis, predominantly of the sigmoid colon, without CT evidence of acute diverticulitis. The appendix appears mildly dilated measuring 8 mm in diameter with mild periappendiceal fat stranding (series 3 image 147). PERITONEUM: No evidence of free fluid in the abdomen and pelvis. No free peritoneal or portal venous gas. PELVIC ORGANS: An IUD is visualized within the endometrial cavity. VASCULATURE: Unremarkable. LYMPH NODES: No significant abdominopelvic lymphadenopathy. MUSCULOSKELETAL: No suspicious osseous lesion. Procedure Note Dilan-Alireza Barrera MD - 01/21/2025 EXAM: CT ABDOMEN PELVIS W CONTRAST LOCATION: [facility] DATE: 01/21/2025 INDICATION: Abdominal pain, flank pain. COMPARISON: CT abdomen and pelvis on 06/23/2018 and CTA of the chest,abdomen, and pelvis on 12/21/2023. TECHNIQUE: CT scan of the abdomen and pelvis was performed after theinjection of 100 mL Isovue 370 intravenously. Multiplanar reformats wereobtained. Dose reduction techniques were used. FINDINGS: LOWER CHEST: Mild basilar pulmonary opacities, likely atelectasis. 5 mmright lower lobe nodule (series 3 image 17) and 5 mm left lower lobenodule (series 3 image 10) are not significantly changed as compared tothe 12/21/2023 exam and hence likely benign. ABDOMEN/PELVIS: HEPATOBILIARY: No suspicious focal hepatic lesion. Right upper quadrantpost-cholecystectomy clips. PANCREAS: No main pancreatic ductal dilatation or definite solidpancreatic mass. SPLEEN: No splenomegaly. Splenule along the spleen. ADRENAL GLANDS: No adrenal nodules. KIDNEYS/BLADDER: No radiodense kidney/ureteral stones or hydronephrosis ineither kidney. BOWEL: No abnormally dilated bowel loops. Colonic diverticulosis,predominantly of the sigmoid colon, without CT evidence of acutediverticulitis. The appendix appears mildly dilated measuring 8 mm indiameter with mild periappendiceal fat stranding (series 3 image 147). PERITONEUM: No evidence of free fluid in the abdomen and pelvis. No freeperitoneal or portal venous gas. PELVIC ORGANS: An IUD is visualized within the endometrial cavity. VASCULATURE: Unremarkable. LYMPH NODES: No significant abdominopelvic lymphadenopathy. MUSCULOSKELETAL: No suspicious osseous lesion. IMPRESSION: 1. The appendix appears mildly dilated measuring 8 mm in diameter withmild periappendiceal fat stranding, findings could represent early acuteappendicitis. 2. Colonic diverticulosis, predominantly of the sigmoid colon, without CTevidence of acute diverticulitis. Yazmin Lehman DO IMG CT ORDERABLES Final Re sult * Blood Culture Peripheral blood (BC) Arm, Right (01/21/2025 1:53 AM CDT) Culture No Growth 01/26/2025 4:31 AM CDT [facility] Peripheral blood (BC) STRUCTURE OF RIGHT UPPER LIMB / Unknown Venipuncture / Unknown 01/21/2025 1:53 AM CDT 01/21/2025 2:03 AM CDT Yazmin Lehman DO LAB - MICRO GENERAL ORDERA BLES Final Result [facility] Inf. Diseases Diag. Lab [address] [facility], [address] [place] [address], [facility] * Blood Culture Peripheral blood (BC) Arm, Left (01/21/2025 1:52 AM CDT) Culture No Growth 01/26/2025 4:31 AM CDT [facility] Peripheral blood (BC) STRUCTURE OF LEFT UPPER LIMB / Unknown Venipuncture / Unknown 01/21/2025 1:52 AM CDT 01/21/2025 2:03 AM CDT Yazmin Lehman DO LAB - MICRO GENERAL ORDERA BLES Final Result [facility]AT[facility] Inf. Diseases Diag. Lab [address] [facility], [address] [place] [address], [facility] * Lactic Acid Whole Blood with 1X Repeat in 2 HR when >2 (01/21/2025 1:52 AM CDT) Lactic Acid, Initial 1.3 0.7 - 2.0 mmol/L 01/21/2025 2:07 AM CDT LABORATORY Blood BLOOD SPECIMEN / Unknown Venipuncture / Unknown 01/21/2025 1:52 AM CDT 01/21/2025 2:03 AM CDT Yazmin Lehman DO LAB - BLOOD ORDERABLES Fin al Result LABORATORY [facility] Lab [address] Lab (1st floor, no room number) [place] [address], [facility] * (ABNORMAL) Urine Culture (01/21/2025 1:02 AM CDT) Culture >100,000 CFU/mL Escherichia coli(A) 01/22/2025 9:01 PM CDT [facility] Urine MID-STREAM URINE SPECIMEN / Unknown Non-blood Collection / Unknown 01/21/2025 1:02 AM CDT 01/21/2025 1:21 AM CDT Narrative Organism Antibiotic Method Susceptibility Escherichia coli Ampicillin ELIZA 8 ug/mL: Susceptible Escherichia coli Ampicillin/ Sulbactam ELIZA <=2 ug/mL: Susceptible Escherichia coli Piperacillin/Tazobactam ELIZA <=4 ug/mL: Susceptible Escherichia coli Cefazolin ELIZA 2 ug/mL: Susceptible Escherichia coli Ceftazidime ELIZA <=0.5 ug/mL: Susceptible Escherichia coli Ceftriaxone ELIZA <=0.25 ug/mL: Susceptible Escherichia coli Cefepime ELIZA <=0.12 ug/mL: Susceptible Escherichia coli Gentamicin ELIZA <=1 ug/mL: Susceptible Escherichia coli Ciprofloxacin ELIZA <=0.06 ug/mL: Susceptible Escherichia coli Levofloxacin ELIZA <=0.12 ug/mL: Susceptible Escherichia coli Nitrofurantoin ELIZA <=16 ug/mL: Susceptible Escherichia coli Trimethoprim/Sulfamethoxazole ELIZA <=1/19 ug/mL: Susceptible us Yazmin Lehman DO LAB - MICRO GENERAL ORDERA BLES Final Result [facility] Inf. Diseases Diag. Lab [address] [facility], [address] [place] [phone] * (ABNORMAL) UA with Microscopic reflex to Culture (01/21/2025 1:02 AM T) Color Urine Yellow Colorless, Straw, Light Yellow, Yellow 01/21/2025 1:21 AM [facility] Appearance Urine Slightly Cloudy(A) Clear 01/21/2025 1:21 AM [facility] Glucose Urine Negative Negative mg/dL 01/21/2025 1:21 AM [facility] Bilirubin Urine Negative Negative 1:21 AM [facility] Ketones Urine Trace(A) Negative mg/dL 01/21/2025 1:21 AM [facility] Specific [place] Urine 1.026 1.003 - 1.035 01/21/2025 1:21 AM [facility] Blood Urine Trace(A) Negative 01/21/2025 1:21 AM [facility] pH Urine 5.5 5.0 - 7.0 01/21/2025 1:21 AM [facility] Protein Albumin Urine 30(A) Negative mg/dL 01/21/2025 1:21 AM [facility] Urobilinogen Urine Normal Normal mg/dL 01/21/2025 1:21 AM [facility] Nitrite Urine Positive(A) Negative 01/21/2025 1:21 AM CDT [facility] Leukocyte Esterase Urine Moderate(A) Negative 01/21/2025 1:21 AM CDT [facility] Bacteria Urine Many(A) None Seen /HPF 01/21/2025 1:21 AM CDT [facility] Mucus Urine Present(A) None Seen /LPF 01/21/2025 1:21 AM CDT [facility] RBC Urine 4(H) <=2 /HPF 01/21/2025 1:21 AM CDT [facility] WBC Urine 19(H) <=5 /HPF 01/21/2025 1:21 AM CDT [facility] Squamous Epithelials Urine 3(H) <=1 /HPF 01/21/2025 1:21 AM CDT [facility] Urine MID-STREAM URINE SPECIMEN / Unknown Non-blood Collection / Unknown 01/21/2025 1:02 AM CDT 01/21/2025 1:07 AM CDT Narrative [facility]AT[facility] - 01/21/2025 1:21 AM CDT Urine Culture ordered based on laboratory criteria Yazmin Lehman DO LAB - URINE ORDERABLES Fin al Result Performing Organization Address City/[facility]/ZIP Co de Phone Number LABORATORY [facility] Lab [address] Lab (1st floor, no room number) [place] [phone] * HCG QUALitative (blood) (01/21/2025 12:55 AM CDT) hCG Serum Qualitative Negative Negative ELIZA 01/21/2025 1:38 AM CDT [facility]AT[facility] Comment:This test is for scr eening purposes. Results should be interpreted along with the clinical picture. Confirmation testing is available if warranted by ordering [id number], HCG Quantitative . Blood BLOOD SPECIMEN / Unknown Venipuncture / Unknown 01/21/2025 12:55 AM CDT 01/21/2025 12:59 AM CDT Yazmin Lehman DO LAB - BLOOD ORDERABLES Fin al Result LABORATORY [facility] Lab [address] Lab (1st floor, no room number) [place] [phone] [place] [address] * Extra Red Top Tube (01/21/2025 12:55 AM CDT) Hold Specimen [facility] 01/21/2025 2:01 AM CDT [facility] LAB[facility]ATORY Blood BLOOD SPECIMEN / Unknown Venipuncture / Unknown 01/21/2025 12:55 AM CDT 01/21/2025 12:59 AM CDT Yazmin Lehman DO LAB - BLOOD ORDERABLES Fin al Result [facility] Lab [address] Lab (1st floor, no room number) [place] [phone] [place] [address] * Extra Blue Top Tube (01/21/2025 12:55 AM CDT) Hold Specimen [facility] 01/21/2025 2:01 AM CDT LABORATORY Blood BLOOD SPECIMEN / Unknown Venipuncture / Unknown 01/21/2025 12:55 AM CDT 01/21/2025 12:59 AM CDT Yazmin Lehman DO LAB - BLOOD ORDERABLES Fin al Result [facility] Lab [address] Lab (1st floor, no room number) [address] * (ABNORMAL) CBC with platelets and differential (01/21/2025 12:55 AM CDT) WBC Count 12.8(H) 4.0 - 11.0 10e3/uL 01/21/2025 1:12 AM CDT [facility] RBC Count 4.26 3.80 - 5.20 10e6/uL 01/21/2025 1:12 AM CDT [facility] Hemoglobin 13.0 11.7 - 15.7 g/dL 01/21/2025 1:12 AM CDT [facility] Hematocrit 38.8 35.0 - 47.0 % 01/21/2025 1:12 AM CDT [facility] MCV 91 78 - 100 fL 01/21/2025 1:12 AM CDT [facility] MCH 30.5 26.5 - 33.0 pg 01/21/2025 1:12 AM CDT [facility] MCHC 33.5 31.5 - 36.5 g/dL 01/21/2025 1:12 AM CDT [facility] RDW 12.3 10.0 - 15.0 % 01/21/2025 1:12 AM CDT [facility] Platelet Count 174 150 - 450 10e3/uL 01/21/2025 1:12 AM CDT [facility] % Neutrophils 75 % 01/21/2025 1:12 AM CDT [facility] % Lymphocytes 17 % 01/21/2025 1:12 AM CDT [facility] % Monocytes 7 % 01/21/2025 1:12 AM CDT [facility] % Eosinophils 1 % 01/21/2025 1:12 AM CDT [facility] % Basophils 0 % 01/21/2025 1:12 AM CDT [facility] % Immature Granulocytes 0 % 01/21/2025 1:12 AM CDT [facility] NRBCs per 100 WBC 0 <1 /100 025 1:12 AM CDT [facility] LAB[facility] Absolute Neutrophils 9.6(H) 1.6 - 8.3 10e3/uL 01/21/2025 1:12 AM CDT [facility] Absolute Lymphocytes 2.2 0.8 - 5.3 10e3/uL 01/21/2025 1:12 AM CDT [facility] Absolute Monocytes 0.9 0.0 - 1.3 10e3/uL 01/21/2025 1:12 AM CDT [facility] LAB[facility] Absolute Eosinophils 0.1 0.0 - 0.7 10e3/uL 01/21/2025 1:12 AM CDT [facility] Absolute Basophils 0.1 0.0 - 0.2 10e3/uL 01/21/2025 1:12 AM CDT [facility] LAB[facility] Absolute Immature Granulocytes 0.0 <=0.4 10e3/uL 01/21/2025 1:12 AM CDT [facility] LAB[facility] Absolute NRBCs 0.0 10e3/uL 01/21/2025 1:12 AM CDT [facility] LAB[facility]AT[facility] Blood BLOOD SPECIMEN / Unknown Venipuncture / Unknown 01/21/2025 12:55 AM CDT 01/21/2025 12:59 AM CDT Yazmin Lehman DO LAB - BLOOD ORDERABLES Fin al Result LABORATORY [facility] Lab [address] Lab (1st floor, no room number) [address] * Lipase (01/21/2025 12:55 AM CDT) Lipase 39 13 - 60 U/L 01/21/2025 1:32 AM CDT LABORATORY Blood BLOOD SPECIMEN / Unknown Venipuncture / Unknown 01/21/2025 12:55 AM CDT 01/21/2025 12:59 AM CDT Yazmin Lehman DO LAB - BLOOD ORDERABLES Fin al Result Performing Organization Address City/[facility]/ZIP Co de Phone Number LABORATORY [facility] Lab [address] Lab (1st floor, no room number) [address] * (ABNORMAL) Comprehensive metabolic panel (01/21/2025 12:55 AM CDT) Sodium 141 135 - 145 mmol/L 01/21/2025 1:32 AM CDT LABORATORY Potassium 3.8 3.4 - 5.3 mmol/L 01/21/2025 1:32 AM CDT LABORATORY Carbon Dioxide (CO2) 26 22 - 29 mmol/L 01/21/2025 1:32 AM CDT LABORATORY Anion Gap 11 7 - 15 mmol/L 01/21/2025 1:32 AM CDT LABORATORY Urea Nitrogen 14.0 6.0 - 20.0 mg/dL 01/21/2025 1:32 AM CDT LABORATORY Creatinine 0.64 0.51 - 0.95 mg/dL 01/21/2025 1:32 AM CDT LABORATORY GFR Estimate >90 >60 mL/min/1.7 3m2 01/21/2025 1:32 AM CDT LABORATORY Comment:eGFR calculated usin 2020 CKD-EPI equation. Calcium 9.4 8.8 - 10.4 mg/dL 01/21/2025 1:32 AM CDT LABORATORY Chloride 104 98 - 107 mmol/L 01/21/2025 1:32 AM CDT LABORATORY Glucose 119(H) 70 - 99 mg/dL 01/21/2025 1:32 AM CDT [facility] LAB[facility] Alkaline Phosphatase 107 40 - 150 U/L 01/21/2025 1:32 AM CDT LABORATORY AST 25 0 - 45 U/L 01/21/2025 1:32 AM CDT LABORATORY ALT 28 0 - 50 U/L 01/21/2025 1:32 AM CDT LABORATORY Protein Total 7.7 6.4 - 8.3 g/dL 01/21/2025 1:32 AM CDT LABORATORY Albumin 4.8 3.5 - 5.2 g/dL 01/21/2025 1:32 AM CDT LABORATORY Bilirubin Total 0.2 <=1.2 mg/dL 01/21/2025 1:32 AM CDT LABORATORY Blood BLOOD SPECIMEN / Unknown Venipuncture / Unknown 01/21/2025 12:55 AM CDT 01/21/2025 12:59 AM CDT us Yazmin Lehman DO LAB - BLOOD ORDERABLES Fin al Result Performing Organization Address City/State/[facility] Co de Phone Number [facility] Lab [address] [facility] Lab (1st floor, no room number) [place] [address], [facility] documented in this encounter Visit Diagnoses Diagnosis Acute appendicitis with localized peritonitis, without perforation, abscess, or gangrene- Primary Appendicitis, unspecified appendicitis type Urinary tract infection without hematuria, site unspecified Sepsis, due to unspecified organism, unspecified whether acute organ dysfunction present (H) Urinary tract infection without hematuria, site unspecified Appendicitis, unspecified appendicitis type documented in this encounter Administered Medications Inactive Administered Medications - up to 3 most recent administrations Medication Order MAR Action Action Date Dose Rate Site fentaNYL (PF) (SUBLIMAZE) injection 50 mcg 50 mcg, Intravenous, EVERY 5 MIN PRN, severe pain, Give fentaNYL (SUBLIMAZE) first if HYDROmorphone (DILAUDID) also ordered., Starting on 01/21/25 at 0941, Administer fentaNYL (SUBLIMAZE) for acute pain control. Move to HYDROmorphone (DILAUDID): - IF patient has received up to 200 mcg of fentaNYL (SUBLIMAZE), OR - IF patient has received 2 doses of fentaNYL (SUBLIMAZE) AND continues to have severe pain (pain score greater than or equal to seven (7) or is unable to participate in post op recovery due to pain. Wait 5 minutes AFTER last fentaNYL (SUBLIMAZE) dose before administering HYDROmorphone (DILADUDID). Postop Anesthesia Phase I only. Notify Provider to assess for uncontrolled pain or analgesic side effects. DO NOT revert back to fentanyl (SUBLIMAZE) after administering HYDROmorphone (DILAUDID)., PACU $Given 01/21/2025 10:16 AM CDT 50 mcg $Given 01/21/2025 10:01 AM CDT 50 mcg fentaNYL (PF) (SUBLIMAZE) injection 50 mcg 50 mcg, Intravenous, ONCE, On 01/21/25 at 0700, For 1 dose $Given 01/21/2025 7:01 AM CDT 50 mcg HYDROmorphone (DILAUDID) injection 0.4 mg 0.4 mg, Intravenous, EVERY 5 MIN PRN, severe pain, Starting on 01/21/25 at 0941, Use FentaNYL (SUBLIMAZE) first if ordered. Maximum total cumulative dose NOT to exceed 2 mg. DO NOT revert back to fentanyl (SUBLIMAZE) after administering HYDROmorphone (DILAUDID). Notify Provider to assess for uncontrolled pain or analgesic side effects., PACU $Given 01/21/2025 10:34 AM CDT 0.4 mg HYDROmorphone (PF) (DILAUDID) injection 0.5 mg 0.5 mg, Intravenous, ONCE, On 01/21/25 at 0130, For 1 dose $Given 01/21/2025 1:53 AM CDT 0.5 mg HYDROmorphone (PF) (DILAUDID) injection 0.5 mg 0.5 mg, Intravenous, ONCE, On 01/21/25 at 0335, For 1 dose $Given 01/21/2025 3:49 AM CDT 0.5 mg iopamidol (ISOVUE-370) solution 500 mL 500 mL, Intravenous, ONCE, On 01/21/25 at 0225, For 1 dose $Given 01/21/2025 2:22 AM CDT 100 mLs ipratropium - albuterol 0.5 mg/2.5 mg/3 mL (DUONEB) neb solution 3 mL 3 mL, Nebulization, ONCE, On 01/21/25 at 0800, For 1 dose $Given 01/21/2025 7:53 AM CDT 3 mLs ketorolac (TORADOL) injection 15 mg 15 mg, Intravenous, ONCE, On 01/21/25 at 0130, For 1 dose, Can cause pain on injection. If ordered intravenously (IV) : administer through a running maintenance fluid over 1 minute followed by a flush. If patient complains of pain on injection, may dilute 15-30 mg in 5 mL and push over 1 to 2 minutes. $Given 01/21/2025 1:53 AM CDT 15 mg ketorolac (TORADOL) injection 15 mg 15 mg, Intravenous, ONCE PRN, inflammatory pain, Starting on 01/21/25 at 0941, For 1 dose, IF celecoxib (CELEBREX) was given pre-operatively, start ketorolac (TORADOL) 12 hours after celecoxib (CELEBREX) given. Check with Surgical Team PRIOR to administration. Can cause pain on injection. If ordered intravenously (IV) : administer through a running maintenance fluid over 1 minute followed by a flush. If patient complains of pain on injection, may dilute 15-30 mg in 5 mL and push over 1 to 2 minutes., PACU $Given 01/21/2025 10:23 AM CDT 15 mg lactated ringers infusion at 10 mL/hr, Intravenous, CONTINUOUS, IF patient NOT on dialysis., Pre-procedure, Starting on 01/21/25 at 0700, Until 01/21/25 at 0940 Restarted 01/21/2025 8:13 AM CDT $New Bag 01/21/2025 7:00 AM CDT 10 mL/hr ondansetron (ZOFRAN) injection 4 mg 4 mg, Intravenous, ONCE, Administer over 2-5 Minutes, On 01/21/25 at 0130, For 1 dose $Given 01/21/2025 1:52 AM CDT 4 mg ondansetron (ZOFRAN) injection 4 mg 4 mg, Intravenous, EVERY 30 MIN PRN, nausea/vomiting - 1st line, PACU, Administer over 2-5 Minutes, Starting on 01/21/25 at 0941, For 2 doses, This is Step 1 of nausea and vomiting management. If nausea/vomiting not resolved in 15 minutes, then go to Step 2 dexamethasone (DECADRON) IV. MAX total dose = 8 mg, including OR dosing., PACU $Given 01/21/2025 9:50 AM CDT 4 mg piperacillin-tazobactam (ZOSYN) 4.5 g vial to attach to NS 100 mL bag Routine, 4.5 g, Intravenous, ONCE, On 01/21/25 at 0335, For 1 dose, Lactated Ringer's solution is not compatible with piperacillin-tazobactam for injection., Indications: Intra-Abdominal InfectionIndications:Intra-Abdom inal Infection $New Bag 01/21/2025 3:49 AM CDT 4.5 g prochlorperazine (COMPAZINE) injection 5 mg 5 mg, Intravenous, EVERY 6 HOURS PRN, nausea/vomiting - 3rd line, PACU, Administer over 1-2 Minutes, Starting on 01/21/25 at 0941, This is Step 3 of the nausea and vomiting protocol. If nausea/vomiting not resolved in 15-30 minutes, notify Provider., PACU $Given 01/21/2025 10:59 AM CDT 5 mg sodium chloride 0.9 % bag for CT scan flush Intravenous, 100 mL, ONCE, On 01/21/25 at 0225, For 1 dose, This entry is for use by Radiology to intermittently use as a flush in patients receiving a CT scan. $Given 01/21/2025 2:22 AM CDT 43 mLs sodium chloride 0.9% BOLUS 1,000 mL Intravenous, 1,000 mL, ONCE, at 1,000 mL/hr, Administer over 1 Hours, On 01/21/25 at 0130, For 1 dose $New Bag 01/21/2025 1:54 AM CDT 1,000 mLs 1000 mL/hr documented in this encounter Active and Recently Administered Medications Times are shown in CDT. Scheduled Medication Order 01/19/2025 01/20/2025 01/21/2025 ceFAZolin Sodium (ANCEF) injection 3 g (COMPLETED) Routine, 3 g, Intravenous, PRE-OP/PRE-PROCEDURE, Starting on 01/21/25 at 0659, For 1 dose, Give first dose within 1 hour PRIOR to incision., Indications: Perioperative Pharmacoprophylaxis, Pre-procedure 0813 ($Given - Provi melly: Joann Gonzalez APRN CRNA - Comment: with test dose) fentaNYL (PF) (SUBLIMAZE) injection 50 mcg (COMPLETED) 50 mcg, Intravenous, ONCE, On 01/21/25 at 0700, For 1 dose 0701 ($Given - Provi melly: Gabriela Mitchell RN) HYDROmorphone (PF) (DILAUDID) injection 0.5 mg (COMPLETED) 0.5 mg, Intravenous, ONCE, On 01/21/25 at 0130, For 1 dose 0153 ($Given - Provi melly: Miladis Hansen RN) HYDROmorphone (PF) (DILAUDID) injection 0.5 mg (COMPLETED) 0.5 mg, Intravenous, ONCE, On 01/21/25 at 0335, For 1 dose 0349 ($Given - Provi melly: Yadira Urban RN) iopamidol (ISOVUE-370) solution 500 mL (COMPLETED) 500 mL, Intravenous, ONCE, On 01/21/25 at 0225, For 1 dose 0222 ($Given - Provi melly: Marjorie Morales, ARRT) ipratropium - albuterol 0.5 mg/2.5 mg/3 mL (DUONEB) neb solution 3 mL (COMPLETED) 3 mL, Nebulization, ONCE, On 01/21/25 at 0800, For 1 dose 0753 ($Given - Provi melly: Silvana Tristan RN) ketorolac (TORADOL) injection 15 mg (COMPLETED) 15 mg, Intravenous, ONCE, On 01/21/25 at 0130, For 1 dose, Can cause pain on injection. If ordered intravenously (IV) : administer through a running maintenance fluid over 1 minute followed by a flush. If patient complains of pain on injection, may dilute 15-30 mg in 5 mL and push over 1 to 2 minutes. 0153 ($Given - Provi melly: Miladis Hnasen RN) ondansetron (ZOFRAN) injection 4 mg (COMPLETED) 4 mg, Intravenous, ONCE, Administer over 2-5 Minutes, On 01/21/25 at 0130, For 1 dose 0152 ($Given - Provi melly: Miladis Hansen RN) piperacillin-tazobactam (ZOSYN) 4.5 g vial to attach to NS 100 mL bag (COMPLETED) Routine, 4.5 g, Intravenous, ONCE, On 01/21/25 at 0335, For 1 dose, Lactated Ringer's solution is not compatible with piperacillin-tazobactam for injection., Indications: Intra-Abdominal Infection 0349 ($New Bag - Pro vider: Yadira rUban RN)0432 (Stopped - Provider: Yadira Urban RN) sodium chloride 0.9 % bag for CT scan flush (COMPLETED) Intravenous, 100 mL, ONCE, On 01/21/25 at 0225, For 1 dose, This entry is for use by Radiology to intermittently use as a flush in patients receiving a CT scan. 0222 ($Given - Provi melly: Marjorie Morales, ARRT) sodium chloride 0.9% BOLUS 1,000 mL (COMPLETED) Intravenous, 1,000 mL, ONCE, at 1,000 mL/hr, Administer over 1 Hours, On 01/21/25 at 0130, For 1 dose 0154 ($New Bag - Pro vider: Miladis Hansen RN)0432 (Stopped - Provider: Yadira Urban RN) Continuous Medication Order 01/19/2025 01/20/2025 01/21/2025 lactated ringers infusion (CANCELED) at 10 mL/hr, Intravenous, CONTINUOUS, IF patient NOT on dialysis., Pre-procedure, Starting on 01/21/25 at 0700, Until 01/21/25 at 0940 0700 ($New Bag - Pro vider: Gabriela Mitchell RN)0812 (Paused - Provider: Joann Gnozalez APRN CRNA - Comment: Switch to gravity)0813 (Restarted - Provider: Joann Gonzalez APRN CRNA)0917 (Anesthesia Volume Adjustment - Provider: Joann Gonzalez APRN CRNA) PRN Medication Order 01/19/2025 01/20/2025 01/21/2025 acetaminophen (TYLENOL) tablet 650 mg 650 mg, Oral, ONCE PRN, mild pain, to moderate pain, Starting on 01/21/25 at 0949, One time prior to discharge. Maximum acetaminophen dose from all sources = 75 mg/kg/day not to exceed 4 grams/day. BUPivacaine 0.5 % - EPINEPHrine 1:200,000 injection (CANCELED) PRN, Starting on 01/21/25 at 0927, Intra-procedure 0927 ($Given - Provi melly: Cherelle Saravia MD) fentaNYL (PF) (SUBLIMAZE) injection 50 mcg (CANCELED) 50 mcg, Intravenous, EVERY 5 MIN PRN, severe pain, Give fentaNYL (SUBLIMAZE) first if HYDROmorphone (DILAUDID) also ordered., Starting on 01/21/25 at 0941, Administer fentaNYL (SUBLIMAZE) for acute pain control. Move to HYDROmorphone (DILAUDID): - IF patient has received up to 200 mcg of fentaNYL (SUBLIMAZE), OR - IF patient has received 2 doses of fentaNYL (SUBLIMAZE) AND continues to have severe pain (pain score greater than or equal to seven (7) or is unable to participate in post op recovery due to pain. Wait 5 minutes AFTER last fentaNYL (SUBLIMAZE) dose before administering HYDROmorphone (DILADUDID). Postop Anesthesia Phase I only. Notify Provider to assess for uncontrolled pain or analgesic side effects. DO NOT revert back to fentanyl (SUBLIMAZE) after administering HYDROmorphone (DILAUDID)., PACU 1001 ($Given - Provi melly: Silvana Tristan RN)1016 ($Given - Provider: Silvana Tristan RN) HYDROmorphone (DILAUDID) injection 0.4 mg (CANCELED) 0.4 mg, Intravenous, EVERY 5 MIN PRN, severe pain, Starting on 01/21/25 at 0941, Use FentaNYL (SUBLIMAZE) first if ordered. Maximum total cumulative dose NOT to exceed 2 mg. DO NOT revert back to fentanyl (SUBLIMAZE) after administering HYDROmorphone (DILAUDID). Notify Provider to assess for uncontrolled pain or analgesic side effects., PACU 1034 ($Given - Provi melly: Silvana Tristan RN) ketorolac (TORADOL) injection 15 mg (COMPLETED) 15 mg, Intravenous, ONCE PRN, inflammatory pain, Starting on 01/21/25 at 0941, For 1 dose, IF celecoxib (CELEBREX) was given pre-operatively, start ketorolac (TORADOL) 12 hours after celecoxib (CELEBREX) given. Check with Surgical Team PRIOR to administration. Can cause pain on injection. If ordered intravenously (IV) : administer through a running maintenance fluid over 1 minute followed by a flush. If patient complains of pain on injection, may dilute 15-30 mg in 5 mL and push over 1 to 2 minutes., PACU 1023 ($Given - Provi melly: Silvana Tristan RN) ondansetron (ZOFRAN) injection 4 mg (CANCELED)(Linked Group 1) 4 mg, Intravenous, EVERY 30 MIN PRN, nausea/vomiting - 1st line, PACU, Administer over 2-5 Minutes, Starting on 01/21/25 at 0941, For 2 doses, This is Step 1 of nausea and vomiting management. If nausea/vomiting not resolved in 15 minutes, then go to Step 2 dexamethasone (DECADRON) IV. MAX total dose = 8 mg, including OR dosing., PACU 0950 ($Given - Provi melly: Silvana Tristan RN) oxyCODONE (ROXICODONE) tablet 5 mg 5 mg, Oral, ONCE PRN, other, pain control or improvement in physical function. , Starting on 01/21/25 at 0949, For 1 dose, Notify provider to assess for uncontrolled pain or analgesic side effects. prochlorperazine (COMPAZINE) injection 5 mg (CANCELED) 5 mg, Intravenous, EVERY 6 HOURS PRN, nausea/vomiting - 3rd line, PACU, Administer over 1-2 Minutes, Starting on 01/21/25 at 0941, This is Step 3 of the nausea and vomiting protocol. If nausea/vomiting not resolved in 15-30 minutes, notify Provider., PACU 1059 ($Given - Provi melly: Silvana Tristan RN) sodium chloride 0.9% (bottle) irrigation (CANCELED) PRN, Starting on 01/21/25 at 0916, Intra-procedure 0916 ($Given - Provi melly: Cherelle Saravia MD) Linked Groups Order Group 1: ondansetron (ZOFRAN ODT) ODT tab 4 mg (CANCELED) 4 mg, Oral, EVERY 30 MIN PRN, nausea/vomiting - 1st line, PACU, Starting on 01/21/25 at 0941, For 2 doses, Administer if NO vascular access present. This is Step 1 of nausea and vomiting management. If nausea/vomiting not resolved in 15 minutes, go to Step 2 dexamethasone (DECADRON) IV. MAX total dose = 8 mg, including OR dosing. With dry hands, peel back foil backing and gently remove tablet. Do not push oral disintegrating tablet through foil backing. Administer immediately on tongue and oral disintegrating tablet dissolves in seconds, then swallow with saliva. Liquid not required., PACU Or ondansetron (ZOFRAN) injection 4 mg (CANCELED)Jump to med 4 mg, Intravenous, EVERY 30 MIN PRN, nausea/vomiting - 1st line, PACU, Administer over 2-5 Minutes, Starting on 01/21/25 at 0941, For 2 doses, This is Step 1 of nausea and vomiting management. If nausea/vomiting not resolved in 15 minutes, then go to Step 2 dexamethasone (DECADRON) IV. MAX total dose = 8 mg, including OR dosing., PACU documented in this encounter Care Teams Fiberglass Pipe Covering Supervisor Relationship Specialty Start Date End Date Chani Boudreaux PA-C [facility] [address] [place] [address] PCP - General Physician Valve Setter 12/21/23 Marylu Donis [address] [place], [place] [id number] 03/09/16 documented as of this encounter
--- OUTSIDE RECORDS SUMMARY | 2025-01-21 08:13 | XMS_ITS | Encounter Summary ---
Author Organization [facility] Address [address] [place] [address]. 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 Process Worker Name Role Phone Clinic, [facility] Unavailable Chani Boudreaux PA-C Primary Care Provider Encounter Details Date Type Department Care Team (Late st Contact Info) Description 01/21/2025 8:13 AM CDT Anesthesia Event [facility] [address] [place] [phone] Johnny Goldberg MD [address] [place] [id number] Edgar Hughes MD [facility] [address] [place] [address] Anesthesia Record Procedure Summary Procedure Name Responsible Anesthesiologist Anesthesia Start Time Anesthesia Stop Time APPENDECTOMY, ROBOT-ASSISTED, LAPAROSCOPIC, USING DA MARK XI (Abdomen) Johnny Goldberg MD 01/21/25 0813 01/21/25 0942 Events Date Time Event Comment 01/21/2025 0629 0746 ATHLETIC AGENT Ready for Procedure 0813 An Start Anesthesia Star t is defined as when the anesthesia provider assumed care, began anesthesia prep, remained continuously present with the patient, and excludes all time for performing the pre-anesthesia evaluation. The Pre-Anesthesia Evaluation was completed before Anesthesia Start. 0819 An Start Data 0819 AN REASSESS I attest that I have identified and re-evaluated the patient immediately before the induction of anesthesia and I am satisfied that the anesthetic plan is suitable for the patient's condition and procedure. The first vital signs recorded are pre-induction. Joann Gonzalez APRN ATHLETIC AGENT 0825 MD Present 0827 An Induction 0830 An Intubation Patient preoxy genated prior to induction. After induction, patient's eyes taped. Atraumatic intubation. Appropriate ETT placement confirmed by positive ETCO2, visible chest rise, and equal/bilateral breath sounds by anesthesiologist. ETT secured with clear tape. 0830 Anesthesia Ready for Procedu re 0831 MD Present 0910 MD Present 09 MD Present 09 AN Extubation All extubation criteria met prior to removal. Patient responding to verbal commands. Regular spontaneous respirations and adequate tidal volumes observed. Oropharynx suctioned, ETT cuff deflated, ETT removed. Patient airway confirmed by positive ETCO2. Patient maintaining spontaneous respirations and saturations >90%. Transferred to PACU on oxygen. 0930 an stop data 0942 An Stop Electronically signed by Joann Gonzalez APRN CRNA on January 21, 2025 9:42 AM Meds Name Total midazolam 1 mg/mL 2 mg fentaNYL 50 mcg/mL 100 mcg lidocaine 2% 50 mg propofol 10 mg/mL 467.96 mg dexamethasone (DECADRON) 4 mg/mL 8 mg ondansetron 2 mg/mL 4 mg glycopyrrolate 0.2 mg/mL 0.2 mg sugammadex (BRIDION) 200mg/2mL 200 mg ceFAZolin Sodium (ANCEF) injection 3 g 3 g rocuronium 10 mg/mL 50 mg dexmedeTOMIDine (PRECEDEX) bolus 200 mcg 16 mcg lactated ringers infusion 700 mL * Agents Name O2 N2O Air Exp Sevoflurane Exp Isoflurane Exp Desflurane Ins Sevoflurane Ins Isoflurane Ins Desflurane * Blood No blood administrations on file. Lines, Drains, and Airways Type Details Placement Removal Incision/Surgical Site Incision (4 port incisions); 01/21/25; 930; Lower; Abdomen; 4 port incisions 01/21/25930 by Hao Hitchcock RN Peripheral IV 01/21/25; 0054; 20 G ; B Cano; Anterior, Left; Upper forearm; Chlorhexidine; None; Tolerated well 01/21/2553 by Pura Manzanares RN 01/21/25 1523 by Inpatient, Nurse ETT Placement Date: 01/21/25; Placement Time: 08 (created via procedure documentation); Mask Ventilation: 1; Induction Type: Intravenous; Ease of Intubation: Easy; Technique: Video laryngoscopy; VL Blade Size: [place] scope 3; Grade View: 1; Adjucts: Stylet; Placement Person: ATHLETIC AGENT; Attempts: 1 01/21/25 0830 by Joann Gonzalez APRN CRNA 01/21/25 0925 by Joann Gonzalez APRN CRNA documented in this encounter Social History Tobacco Use Types Packs/Day Years [...] on file Legal Sex 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 status CV/Hemodynamics: Uneventful Sign Out: Acceptable CV status; No obvious hypovolemia; No obvious fluid overload Other NRE: NONE DID A NON-ROUTINE EVENT OCCUR? No Last vitals: Vitals Value Taken Time BP 122/71 01/21/25 12:50 Temp 91.04 ??F (32.8 ??C) 01/21/25 12:39 Pulse 68 01/21/25 12:50 Resp 9 01/21/25 12:39 SpO2 94 % 01/21/25 12:46 Vitals shown include unfiled device data. Electronically Signed By: Johnny Goldberg MD January 21, 2025 2:21 PM * Anesthesia Procedure Notes - Joann Gonzalez APRN CRNA - 01/21/2025 8:35 AM CDTAssociated Order(s): Airway Airway Patient location during procedure: OR Procedure Start/Stop Times: 01/21/2025 8:30 AM Staff - ATHLETIC AGENT: Joann Gonzalez APRN CRNA Performed By: ATHLETIC AGENT Consent for Airway Urgency: elective Indications and Patient Condition Indications for airway management: thom-procedural Induction type:intravenous Mask difficulty assessment: 1 - vent by mask Final Airway Details Final airway type: endotracheal airway Successful airway: ETT - single Endotracheal Airway Details Cuffed: yes Successful intubation technique: video laryngoscopy VL Blade Size: Glidescope 3 Grade View of Cords: 1 Adjucts: stylet Position: Right Measured from: gums/teeth Secured at (cm): 22 Bite block used: None Post intubation assessment Placement verified by: capnometry, equal breath sounds and chest rise Number of attempts at approach: 1 Number of other approaches attempted: 0 Secured with: plastic tape Ease of procedure: easy Dentition: Unchanged Medication(s) Administered Medication Administration Time: 01/21/2025 8:30 AM * Anesthesia Preprocedure Evaluation - Edgar Hughes MD - 01/21/2025 6:23 AM CDT Anesthesia Pre-Procedure Evaluation Patient: Maude Rivera : 1975 Procedure : Procedure(s): APPENDECTOMY, ROBOT-ASSISTED, LAPAROSCOPIC, USING DA MARK XI Past Medical History: Diagnosis Date Asthma Depressive disorder Migraine, unspecified, without mention of intractable migraine without mention of status migrainosus depression after first baby was on meds Past Surgical History: Procedure Laterality Date CHOLECYSTECTOMY HERNIA REPAIR skin cancer[ 2006 sqamous cells removed from back TONSILLECTOMY 1981 Allergies Allergen Reactions Morphine Sulfate Shortness Of Breath Bees Levaquin Swelling Pcn [Penicillins] Tape [Adhesive Tape] PAPER TAPE Social History Tobacco Use Smoking status: Never Smokeless tobacco: Never Substance Use Topics Alcohol use: No Wt Readings from Last 1 Encounters: 01/21/25 121.8 kg (268 lb 8.3 oz) Anesthesia Evaluation ROS/MED HX ENT/Pulmonary: (+) Intermittent, asthma Treatment: Inhaler prn, Neurologic: (+) migraines, Cardiovascular: METS/Exercise Tolerance: Hematologic: Comments: Thrombocytopenia Lab Test 01/21/25 12/21/23 04/19/19 0055 1701 2000 WBC 12.8* 8.7 11.1* HGB 13.0 13.7 13.7 MCV 91 92 93 PLT 174 166 121* INR -- 0.96 -- Lab Test 01/21/25 12/21/23 04/19/19 0055 1701 2000 NA 141 137 139 POTASSIUM 3.8 3.9 4.1 CHLORIDE 104 101 106 CO2 26 25 30 BUN 14.0 13.2 9 CR 0.64 0.49* 0.59 ANIONGAP 11 11 3 GIL 9.4 9.0 8.6 GLC 119* 86 86 Musculoskeletal: GI/Hepatic: (+) appendicitis, cholecystitis/cholelithiasis, Renal/Genitourinary: Endo: (+) Obesity, Psychiatric/Substance Use: (+) psychiatric history anxiety and depression Infectious Disease: Malignancy: (+) Malignancy, History of Skin.Skin CA Remission status post Surgery. Other: Physical Exam Airway Mallampati: III TM distance: >3 FB Neck ROM: full Mouth opening: >= 4 cm Cardiovascular - normal exam Dental (+) Completely normal teeth Pulmonary - normal exam Neurological - normal exam She appears awake, alert and oriented x3. Other Findings OUTSIDE LABS: CBC: Lab Results Component Value Date WBC 12.8 (H) 01/21/2025 WBC 8.7 12/21/2023 HGB 13.0 01/21/2025 HGB 13.7 12/21/2023 HCT 38.8 01/21/2025 HCT 40.8 12/21/2023 PLT 174 01/21/2025 PLT 166 12/21/2023 BMP: Lab Results Component Value Date NA 141 01/21/2025 NA 137 12/21/2023 POTASSIUM 3.8 01/21/2025 POTASSIUM 3.9 12/21/2023 CHLORIDE 104 01/21/2025 CHLORIDE 101 12/21/2023 CO2 26 01/21/2025 CO2 25 12/21/2023 BUN 14.0 01/21/2025 BUN 13.2 12/21/2023 CR 0.64 01/21/2025 CR 0.49 (L) 12/21/2023 GLC 119 (H) 01/21/2025 GLC 86 12/21/2023 COAGS: Lab Results Component Value Date PTT 27 12/21/2023 INR 0.96 12/21/2023 POC: Lab Results Component Value Date HCGS Negative 01/21/2025 HEPATIC: Lab Results Component Value Date ALBUMIN 4.8 01/21/2025 PROTTOTAL 7.7 01/21/2025 ALT 28 01/21/2025 AST 25 01/21/2025 ALKPHOS 107 01/21/2025 BILITOTAL 0.2 01/21/2025 OTHER: Lab Results Component Value Date LACT 1.3 01/21/2025 GIL 9.4 01/21/2025 MAG 2.1 04/19/2019 LIPASE 39 01/21/2025 TSH 2.32 04/19/2019 Anesthesia Plan ASA Status: 2 NPO Status: NPO Appropriate Anesthesia Type: General. Maintenance: Balanced. Techniques and Equipment: - Monitoring Plan: standard ASA monitoring Consents Anesthesia Plan(s) and associated risks, benefits, and realistic alternatives discussed. Questions answered and patient/claim representative(s) expressed understanding. - Discussed: anesthesiologist - Discussed with: Patient - Pt is DNR/DNI Status: no DNR Blood Consent: - Discussed with: patient. Postoperative Care Pain management: plan for postoperative opioid use. Comments: Edgar Hughes MD I have reviewed the pertinent notes and labs in the chart from the past 30 days and (re)examined the patient. Any updates or changes from those notes are reflected in this note. Clinically Significant Risk Factors Present on Admission # Morbid Obesity: Estimated body mass index is 42.06 kg/m?? as calculated from the following: Height as of this encounter: 1.702 m (5' 7). Weight as of this encounter: 121.8 kg (268 lb 8.3 oz). documented in this encounter Miscellaneous Notes * Anesthesia Care Transfer Note - Joann Gonzalez APRN CRNA - 01/21/2025 9:42 AM CDT Patient: Maude Rivera Procedure: Procedure(s): APPENDECTOMY, ROBOT-ASSISTED, LAPAROSCOPIC, USING DA MARK XI Diagnosis: Appendicitis, unspecified appendicitis type [K37] Diagnosis Additional Information: No value filed. Anesthesia Type: General Note: Oropharynx: oral airway in place Level of Consciousness: drowsy Oxygen Supplementation: face mask Level of Supplemental Oxygen (L/min / FiO2): 6 Independent Airway: airway patency satisfactory and stable Dentition: dentition unchanged Vital Signs Stable: post-procedure vital signs reviewed and stable Report to RN Given: handoff report given Patient transferred to: PACU Handoff Report: Identifed the Patient, Identified the Reponsible Provider, Reviewed the pertinent medical history, Discussed the surgical course, Reviewed Intra-OP anesthesia mangement and issues during anesthesia, Set expectations for post-procedure period and Allowed opportunity for questions andacknowledgement of understanding Vitals: Vitals Value Taken Time BP Temp Pulse 64 01/21/25 09:41 Resp 10 01/21/25 09:41 SpO2 100 % 01/21/25 09:41 Vitals shown include unfiled device data. Electronically Signed By: Joann Gonzalez APRN CRNA January 21, 2025 9:42 AM documented in this encounter Plan of Treatment Not on file documented as of this encounter Procedures Procedure Name Priority Date/Time Associated Diagnosis Comments ANE AIRWAY ETT PERFORMABLE Routine 01/21/2025 8:30 AM CDT documented in this encounter Results * ANE AIRWAY ETT PERFORMABLE (01/21/2025 8:30 AM CDT) Narrative Joann Gonzalez APRN ATHLETIC AGENT - 01/21/2025 8:30 AM CDT Joann Gonzalez APRN ATHLETIC AGENT 01/21/2025 8:35 AM Airway Patient location during procedure: OR Procedure Start/Stop Times: 01/21/2025 8:30 AM Staff - ATHLETIC AGENT: Joann Gonzalez APRN ATHLETIC AGENT Performed By: ATHLETIC AGENT Consent for Airway Urgency: elective Indications and Patient Condition Indications for airway management: thom-procedural Induction type:intravenous Mask difficulty assessment: 1 - vent by mask Final Airway Details Final airway type: endotracheal airway Successful airway: ETT - single Endotracheal Airway Details Cuffed: yes Successful intubation technique: video laryngoscopy VL Blade Size: Glidescope 3 Grade View of Cords: 1 Adjucts: stylet Position: Right Measured from: gums/teeth Secured at (cm): 22 Bite block used: None Post intubation assessment Placement verified by: capnometry, equal breath sounds and chest rise Number of attempts at approach: 1 Number of other approaches attempted: 0 Secured with: plastic tape Ease of procedure: easy Dentition: Unchanged Medication(s) Administered Medication Administration Time: 01/21/2025 8:30 AM Johnny Goldberg MD [facility] Final Result documented in this encounter Visit Diagnoses Not on filedocumented in this encounter Administered Medications Inactive Administered Medications - up to 3 most recent administrations Medication Order MAR Action Action Date Dose Rate Site ceFAZolin Sodium (ANCEF) injection 3 g Routine, 3 g, Intravenous, PRE-OP/PRE-PROCEDURE, Starting on 01/21/25 at 0659, For 1 dose, Give first dose within 1 hour PRIOR to incision., Indications: Perioperative Pharmacoprophylaxis, Pre-procedureIndications:Perioperati ve Pharmacoprophylaxis $Given 01/21/2025 8:13 AM CDT 3 g dexAMETHasone (DECADRON) injection Intravenous, PRN, Administer over 1 Minutes, Starting on 01/21/25 at 0827, Anesthesia Intra-op $Given 01/21/2025 8:27 AM CDT 8 mg dexmedeTOMIDine (PRECEDEX) bolus 200 mcg Intravenous, CONTINUOUS PRN, Starting on 01/21/25 at 0831, Anesthesia Intra-op $Bolus 01/21/2025 8:39 AM CDT 4 mcg $Bolus 01/21/2025 8:35 AM CDT 4 mcg $New Bag 01/21/2025 8:31 AM CDT 4 mcg fentaNYL (PF) (SUBLIMAZE) injection Intravenous, PRN, Administer over 3-5 Minutes, Starting on 01/21/25 at 0827, Anesthesia Intra-op $Given 01/21/2025 8:27 AM CDT 100 mcg glycopyrrolate (ROBINUL) injection Intravenous, PRN, Administer over 1-2 Minutes, Starting on 01/21/25 at 0827, Anesthesia Intra-op $Given 01/21/2025 8:27 AM CDT 0.2 mg lactated ringers infusion at 10 mL/hr, Intravenous, CONTINUOUS, IF patient NOT on dialysis., Pre-procedure, Starting on 01/21/25 at 0700, Until 01/21/25 at 0940 Restarted 01/21/2025 8:13 AM CDT $New Bag 01/21/2025 7:00 AM CDT 10 mL/hr lidocaine 2% injection (MDV) Intravenous, PRN, Starting on 01/21/25 at 0827, Anesthesia Intra-op $Given 01/21/2025 8:27 AM CDT 50 mg midazolam (VERSED) injection Intravenous, Administer over 2 Minutes, PRN, Starting on 01/21/25 at 0813, Anesthesia Intra-op $Given 01/21/2025 8:13 AM CDT 2 mg ondansetron (ZOFRAN) injection Intravenous, PRN, Administer over 2-5 Minutes, Starting on 01/21/25 at 0917, Anesthesia Intra-op $Given 01/21/2025 9:17 AM CDT 4 mg propofol (DIPRIVAN) injection 10 mg/mL vial Intravenous, PRN, Starting on 01/21/25 at 0827, Anesthesia Intra-op $New Bag 01/21/2025 8:33 AM CDT 50 mcg/kg/min 36.54 mL/hr $Given 01/21/2025 8:27 AM CDT 200 mg rocuronium injection Intravenous, PRN, Starting on 01/21/25 at 0827, Anesthesia Intra-op $Given 01/21/2025 8:27 AM CDT 50 mg sugammadex (BRIDION) injection Intravenous, PRN, Starting on 01/21/25 at 0917, Anesthesia Intra-op $Given 01/21/2025 9:17 AM CDT 200 mg documented in this encounter Care Teams Metal Engineering Process Worker Relationship Specialty Start Date End Date Chani Boudreaux PA-C [facility] [address] [place] [address] PCP - General Physician Law Tutor 12/21/23 Marylu Donis [address] [place] [id number] 03/09/16 documented as of this encounter
--- OUTSIDE RECORDS SUMMARY | 2025-01-21 08:30 | XMS_ITS | Encounter Summary ---
Author Organization [facility] Address [address] [place] [address] Care Team Providers Care Splitting Machine Operator Helper Name Role Phone Clinic, Marylu Sargent Unavailable [phone] Chani Boudreaux PA-C Primary Care Provider Reason for Visit * Reason Comments Abdominal Pain Encounter Details Date Type Department Care Team (Late st Contact Info) Description 01/21/2025 8:30 AM CDT - 01/21/2025 10:[address] [facility] PeriOp Services [address] [place] [phone] Cherelle Saravia MD [address] [place] [address] APPENDECTOMY, ROBOT-ASSISTED, LAPAROSCOPIC, USING DA MARK XI Surgery Details Date/Time Status Location OR Service Patient Class Case Class Case Type Trauma Case? 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 We are located at [address] [facility] [address], [place] [phone] I did not personally see or examine [...] APPENDECTOMY Jaleesa Thrasher, Jake Jeronimo, R. O???Lakisha Banegas, Antelmo Saravia INCISIONAL CARE: Replace the bandage over your [...] take the narcotic that you were prescribed. Spkv-swp-roldogz anti-inflammatory medications (i.e. Ibuprofen/Advil/Motrin or Naprosyn/Aleve) may [...] to be seen, please call us at [phone]. We are located at: [address] [facility], [address]; [place] [address] -CONTACT US IF THE FOLLOWING DEVELOPS: 1. [...] Walk around frequently. You may consider an bbcg-ouy-hzxgbxa stool-softener. Your Pharmacist can assist you with [...] catheter placed until your bladder recovers. When planningto go to an Emergency department, it may [...] to discuss with the Nurse or Physician Computer Analyst Supervisor. # There is a surgeon BOILER REPAIRMAN on weekday evenings and over the weekend [...] Everywhere. * (s) After Anesthesia (Sleep Medicine) (Welsh) documented in this encounter Medications at Time [...] ondansetron (ZOFRAN ODT) 4 MG ODT tabIndications:Ac [place] appendicitis with localized peritonitis, without perforation, abscess, [...] as needed for nausea 10 tablet 08/21/2018 documented as of this encounter H&P Notes * Cherelle Saravia MD - 01/21/2025 7:57 AM CDT [facility] General Surgery H&P Maude Rivera Age: [...] Hansen RN - 01/21/2025 3:30 AM CDT [facility] ED Nurse Handoff Report ED Chief [...] standby. Lift room needed: No. Bariatric: No Lunchroom Worker Needed: No Isolation: No. Infection: Not Applicable. Respiratory status: Room air Vital Signs (within 30 minutes): Vitals: 01/21/25 0053 01/21/25 0054 BP: (!) 146/96 Pulse: 102 Resp: 20 [...] Urine Negative Ketones Urine Trace (*) Specific Carlisle Urine 1.026 Blood Urine Trace (*) pH [...] scan flush (43 mLs Intravenous $Given 01/21/25 022) Drips infusing: Yes For the majority of the shift this patient was Green. Interventions performed were n/a. Sepsis treatment initiated: No Cares/treatment/interventions/medications to be completed following ED care: follow orders ED Nurse Name: Miladis Hansen RN 3:30 AM * Yazmin Lehman DO - 01/21/2025 1:19 AM CDT Emergency Department [...] Urine Negative Ketones Urine Trace (*) Specific Carlisle Urine 1.026 Blood Urine Trace (*) pH [...] Course ED Course as of 01/21/25 0430 Stout January 21, 2025 0120 I obtained history and examined the patient as noted above. 0325 Patient reports pain controlled at this time 0329 I spoke to general surgeon Dr. Saravia. Will plan for OR in AM Additional Documentation None Medical Decision Making / Diagnosis [facility] Diagnoses: None MIPS None MDM Maude [...] Saravia MD - 01/21/2025 8:42 AM CDT [facility] General Surgery Operative Note Pre-operative diagnosis: Appendicitis, unspecified appendicitis type [K37] Post-operative diagnosis Acute appendicitis without rupture Procedure: Procedure(s): APPENDECTOMY, ROBOT-ASSISTED, LAPAROSCOPIC, USING DA MARK XI Surgeon(s): Surgeons and Role: * Cherelle Saravia MD - Primary * Klaus Dueñas PA-C - Assisting The Physician Computer Analyst Supervisor was medically necessary for their expertise in [...] CDT) Case Report Surgical Pathology Report Case: [id number] Authorizing Provider: Cherelle Saravia MD Collected: 01/21/2025 09:22 AM Ordering Location: [facility] Received: 01/21/2025 09:51 AM Main OR Pathologist: [...] findings: The resection margin is inked blue Rn Procedures sections are submitted in formalin as follows: A1-resection margin (inked blue), half of the distal tip and labor union business representative appendix cross sections. EDILSON Joyner(ASCP)CM 01/23/2025 8:43 AM 01/24/2025 4:08 PM CDT LABORATORY Microscopic Description A formal microscopic examination has been performed 01/24/2025 4:08 PM CDT LABORATORY Performing Labs The technical component of this testing was completed at [facility]. Stain controls for all stains resulted within this report have been reviewed and show appropriate reactivity. 01/24/2025 4:08 PM CDT LABORATORY Case Images 01/24/2025 4:08 PM CDT LABORATORY Tissue APPENDIX STRUCTURE / Unknown 01/21/2025 9:22 AM CDT 01/21/2025 9:51 AM CDT Cherelle Saravia MD LAB - HALLEY AP Final Result LABORATORY [facility] Acute Care Lab [address] 1st floor, [address] [place] [address], [facility] [phone] LABORATORY [facility] Acute Care Lab [address] [facility] Lab (1st floor, no room number) [place] [address], [facility] * CT Abdomen Pelvis w Contrast (01/21/2025 [...] ORDERA BLES Final Result [facility]ORAT[facility] Inf. Diseases Diag. Lab [address] [facility], [address] [place] [address] * Blood Culture Peripheral blood (BC) Arm, Left (01/21/2025 1:52 AM CDT) Culture No Growth 01/26/2025 4:31 AM CDT [facility] Peripheral blood (BC) STRUCTURE OF LEFT UPPER LIMB / Unknown Venipuncture / Unknown 01/21/2025 1:52 AM CDT 01/21/2025 2:03 AM CDT Yazmin Lehman DO LAB - MICRO GENERAL ORDERA BLES Final Result [facility]AT[facility] Inf. Diseases Diag. Lab [address] [facility], [address] [place] [address] * Lactic Acid Whole Blood with 1X Repeat in 2 HR when >2 (01/21/2025 1:52 AM CDT) Lactic Acid, Initial 1.3 0.7 - 2.0 mmol/L 01/21/2025 2:07 AM CDT LABORATORY Blood BLOOD SPECIMEN / Unknown Venipuncture / Unknown 01/21/2025 1:52 AM CDT 01/21/2025 2:03 AM CDT Yazmin Lehman DO LAB - BLOOD ORDERABLES Fin al Result LABORATORY [facility] Acute Care Lab [address] Lab (1st floor, no room number) [place] [address] * (ABNORMAL) Urine Culture (01/21/2025 1:02 AM [...] ORDERA BLES Final Result [facility] LABORATORY [facility] Inf. Diseases Diag. Lab [address] [facility], [address] [place] [phone] * (ABNORMAL) UA with Microscopic reflex to Culture (01/21/2025 1:02 AM CDT) Color Urine Yellow Colorless, Straw, Light Yellow, Yellow 01/21/2025 1:21 AM T LABORATORY Appearance Urine Slightly Cloudy(A) Clear 01/21/2025 1:21 AM T LABORATORY Glucose Urine Negative Negative mg/dL 01/21/2025 1:21 AM [facility] LABORATORY Bilirubin Urine Negative Negative 1:21 AM [facility] LABORATORY Ketones Urine Trace(A) Negative mg/dL 01/21/2025 1:21 AM CDT LABORATORY Specific [place] Urine 1.026 1.003 - 1.035 01/21/2025 1:21 AM CDT LABORATORY Blood Urine Trace(A) Negative 01/21/2025 1:[facility] pH Urine 5.5 5.0 - 7.0 01/21/2025 1:21 AM [facility] LABORATORY Protein Albumin Urine 30(A) Negative mg/dL 01/21/2025 1:21 AM [facility] LABORATORY Urobilinogen Urine Normal Normal mg/dL 01/21/2025 1:21 AM CDT [facility] LABORATORY Nitrite Urine Positive(A) Negative 01/21/2025 1:21 [...] 3(H) <=1 /HPF 01/21/2025 1:21 AM CDT LABORATORY Urine MID-STREAM URINE SPECIMEN / Unknown Non-blood Collection / Unknown 01/21/2025 1:02 AM CDT 01/21/2025 1:07 AM CDT Narrative LABORATORY - 01/21/2025 1:21 AM CDT Urine Culture ordered based on laboratory criteria Yazmin Lehman DO LAB - URINE ORDERABLES Fin al Result Performing Organization Address City/[facility]/ZIP Co de Phone Number [facility] [address] Lab (1st floor, no room number) [place] [address] * HCG QUALitative (blood) (01/21/2025 12:55 AM CDT) hCG Serum Qualitative Negative Negative ELIZA 01/21/2025 1:38 AM CDT [facility] LABORATORY Comment:This test is for scr eening purposes. Results should be interpreted along with the clinical picture. Confirmation testing is available if warranted by ordering [id number], HCG Quantitative . Blood BLOOD SPECIMEN / Unknown Venipuncture / Unknown 01/21/2025 12:55 AM CDT 01/21/2025 12:59 AM CDT Yazmin Lehman DO LAB - BLOOD ORDERABLES Fin al Result [facility] LABORATORY [facility] Acute Care Lab [address] Lab (1st floor, no room number) [place] [phone] [place] [address] * Extra Red Top Tube (01/21/2025 12:55 AM CDT) Hold Specimen [facility] 01/21/2025 2:01 AM CDT [facility] LABORATORY Blood BLOOD SPECIMEN / Unknown Venipuncture / Unknown 01/21/2025 12:55 AM CDT 01/21/2025 12:59 AM CDT Yazmin Lehman DO LAB - BLOOD ORDERABLES Fin al Result [facility] Lab [address] Lab (1st floor, no room number) [address] * Extra Blue Top Tube (01/21/2025 12:55 AM CDT) Hold Specimen [facility] 01/21/2025 2:01 AM CDT LABORATORY Blood BLOOD SPECIMEN / Unknown Venipuncture / Unknown 01/21/2025 12:55 AM CDT 01/21/2025 12:59 AM CDT Yazmin Lehman DO LAB - BLOOD ORDERABLES Fin al Result [facility] Care Lab [address] Lab (1st floor, no room number) [address] * (ABNORMAL) CBC with platelets and [...] - BLOOD ORDERABLES Fin al Result LABORATORY [facility] Care Lab [address] Lab (1st floor, no room number) [place] [phone] [place] [address] * Lipase (01/21/2025 12:55 AM CDT) Lipase 39 13 - 60 U/L 01/21/2025 1:32 AM CDT LABORATORY Blood BLOOD SPECIMEN / Unknown Venipuncture / Unknown 01/21/2025 12:55 AM CDT 01/21/2025 12:59 AM CDT Yazmin Lehman DO LAB - BLOOD ORDERABLES Fin al Result Performing Organization Address City/[facility]/ZIP Co de Phone Number [facility] Lab [address] Lab (1st floor, no room number) [address] [place] [address] * (ABNORMAL) Comprehensive metabolic panel (01/21/2025 12:55 [...] >60 mL/min/1.7 3m2 01/21/2025 1:32 AM CDT [facility] LABORATORY Comment:eGFR calculated usin 2020 CKD-EPI equation. Calcium 9.4 8.8 - 10.4 mg/dL 01/21/2025 1:32 AM CDT [facility] LABORATORY Chloride 104 98 - 107 mmol/L 01/21/2025 1:32 AM CDT [facility] LABORATORY Glucose 119(H) 70 - 99 mg/dL 01/21/2025 1:32 AM CDT [facility] LABORATORY Alkaline Phosphatase 107 40 - 150 U/L 01/21/2025 1:32 AM CDT [facility] LABORAT[facility] AST 25 0 - 45 U/L 01/21/2025 1:32 AM CDT [facility] LABORATORY ALT 28 0 - 50 U/L 01/21/2025 1:32 AM CDT [facility] LAB[facility] Protein Total 7.7 6.4 - 8.3 g/dL 01/21/2025 1:32 AM CDT [facility] LAB[facility] Albumin 4.8 3.5 - 5.2 g/dL 01/21/2025 1:32 AM CDT [facility] LAB[facility] Bilirubin Total 0.2 <=1.2 mg/dL 01/21/2025 1:32 AM CDT [facility] LABORATORY Blood BLOOD SPECIMEN / Unknown Venipuncture / Unknown 01/21/2025 12:55 AM CDT 01/21/2025 12:59 AM CDT Yazmin Lehman DO LAB - BLOOD ORDERABLES [facility] al Result LABORATORY [facility] Acute Care Lab [address] Lab (1st floor, no room number) [place] [address], [facility] documented in this encounter Visit Diagnoses Diagnosis Acute appendicitis with localized peritonitis, without perforation, abscess, or gangrene- Primary Appendicitis, unspecified appendicitis type Urinary tract infection without hematuria, site unspecified Sepsis, due to unspecified organism, unspecified whether acute organ dysfunction present (H) Urinary tract infection without hematuria, site unspecified Appendicitis, unspecified appendicitis type Appendicitis, unspecified appendicitis type documented in this encounter Administered Medications Inactive Administered Medications - up to 3 most recent administrations Medication Order MAR Action Action Date Dose Rate Site BUPivacaine 0.5 % - EPINEPHrine 1:200,000 injection PRN, Starting on 01/21/25 at 0927, Intra-procedure $Given 01/21/2025 9:27 AM CDT 23 mLs Operative Site/Surgical Site fentaNYL (PF) (SUBLIMAZE) injection 50 mcg [...] compatible with piperacillin-tazobactam for injection., Indications: Intra-Abdominal InfectionIndications:Int ra-Abdominal Infection $New Bag 01/21/2025 3:49 AM CDT [...] AM CDT 43 mLs sodium chloride 0.9% (bottle) irrigation PRN, Starting on 01/21/25 at 0916, Intra-procedure $Given 01/21/2025 9:16 AM CDT 250 mLs Operative Site/Surgical Site sodium chloride 0.9% BOLUS 1,000 mL Intravenous, [...] dose 0701 ($Given - Provi melly: Gabriela Mitchell, VANNESA) HYDROmorphone (PF) (DILAUDID) injection 0.5 mg (COMPLETED) 0.5 mg, Intravenous, ONCE, On 01/21/25 at 0130, For 1 dose 0153 ($Given - Provi melly: Miladis Hansen, VANNESA) HYDROmorphone (PF) (DILAUDID) injection 0.5 mg (COMPLETED) 0.5 mg, Intravenous, ONCE, On 01/21/25 at 0335, For 1 dose 0349 ($Given - Provi melly: Yadira Urban, VANNESA) iopamidol (ISOVUE-370) solution 500 mL (COMPLETED) 500 [...] minutes. 0153 ($Given - Provi melly: Miladis Hansen, VANNESA) ondansetron (ZOFRAN) injection 4 mg (COMPLETED) 4 [...] with piperacillin-tazobactam for injection., Indications: Intra-Abdominal Infection 034 ($New Bag - Pro vider: Yadira Urban RN)0432 (Stopped - Provider: Yadira Urban RN) sodium chloride 0.9 % bag for CT scan flush (COMPLETED) Intravenous, 100 mL, ONCE, On 01/21/25 at 0225, For 1 dose, This entry is for use by Radiology to intermittently use as a flush in patients receiving a CT scan. 0222 ($Given - Provi melly: NADINE WeaverT) sodium chloride 0.9% BOLUS 1,000 mL (COMPLETED) Intravenous, 1,000 mL, ONCE, at 1,000 mL/hr, Administer over 1 Hours, On 01/21/25 at 0130, For 1 dose 0154 ($New Bag - Pro vider: Miladis Hansen RN)0432 (Stopped - Provider: Yadira Urban RN) Continuous Medication Order 01/19/2025 01/20/2025 01/21/2025 lactated ringers infusion (CANCELED) at 10 mL/hr, Intravenous, CONTINUOUS, IF patient NOT on dialysis., Pre-procedure, Starting on Stout 01/21/25 at 0700, Until Wed01/21/25 at 0940 0700 ($New Bag - Pro vider: Gabriela Mitchell RN)0812 (Paused - Provider: Joann Gonzalez APRN CRNA - Comment: Switch to gravity)0813 (Restarted - Provider: Joann Gonzalez APRN CRNA)0917 (Anesthesia Volume Adjustment - Provider: Joann Gonzalez APRN CRNA) PRN Medication Order 01/19/2025 01/20/2025 01/21/2025 acetaminophen (TYLENOL) tablet 650 mg 650 mg, Oral, ONCE PRN, mild pain, to moderate pain, Starting on Stout 01/21/25 at 0949, One time prior to [...] if HYDROmorphone (DILAUDID) also ordered., Starting on Stout 01/21/25 at 0941, Administer fentaNYL (SUBLIMAZE) for [...] PACU documented in this encounter Care Teams Splitting Machine Operator Helper Relationship Specialty Start Date End Date Chani Boudreaux PA-C [facility] [address] [place] [address] PCP - General Physician Computer Analyst Supervisor 12/21/23 Gagandeep, Marylu Sargent [address] [place] [address] 03/09/16 documented as of this encounter
--- NOTE | 2025-02-19 17:30 | CRLHL7_ITS ---
For Patients: As a result of the Century Cures Act, medical imaging exams and procedure reports are released immediately into your electronic medical record. You may view this report before your referring provider. If you have questions, please contact your health care provider. INDICATION: Headaches. TECHNIQUE: Brain MRI with and without contrast. 20 cc of Dotarem gadolinium based intravenous contrast administered. COMPARISON: Head CT from 01/08/2025. FINDINGS: No evidence of acute ischemia. No evidence of acute or chronic intracranial blood products. No mass or pathologic intracranial enhancement. A few small FLAIR hyperintensities scattered within the supratentorial white matter. Nonspecific but typical for chronic microvascular ischemic change or sequela of migraine headaches. No hydrocephalus or extra-axial collections. The pituitary gland, parasellar structures and optic chiasm are normal. Posterior fossa is normal. All the major intracranial vascular structures demonstrate normal flow-related signal. The orbital contents are normal. No calvarial or skull base marrow signal abnormality. No obstructive sinus disease. No extracranial soft tissue findings. IMPRESSION: 1. No acute infarction or other acute intracranial pathology. 2. No mass or pathologic intracranial enhancement. 3. Minimal chronic microvascular ischemic changes. Dictated by Rafa Arizmendi MD @ 02/20/2025 3:12:27 PM (Electronically Signed)
--- OUTSIDE RECORDS SUMMARY | 2025-02-20 00:40 | XMS_ITS | Encounter Summary ---
Author Organization [facility] Address [address] [place] [address]. 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
--- OUTSIDE RECORDS SUMMARY | 2025-02-20 00:42 | XMS_ITS | Encounter Summary ---
Author Organization [facility] Address [address] [place] [address]. [place] [address] Care Team Providers Care E Business Project Manager Name Role Phone Clinic, Marylu Smartan Unavailable [phone] Chani Boudreaux PA-C Primary Care Provider Reason for Visit * Reason Onset Date Comments Refill Request 01/23/2025 S/p lap appy 12/29 01/21. First refill. Encounter Details Date Type Department Care Team (Late st Contact Info) Description 01/23/2025 Refill [facility] [place] [address] [facility] [address] [place] [address] Cherelle Saravia MD [address] [place] [address] Refill Request (S/p lap appy 01/21/25. First refill. 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 Saravia Patient medication request: oxycodone 5 mg Refill request: first Type/Amount of pain medication in current use: ibuprofen 600mg every 6 -8 hours. Patient Symptoms: incisional pain. Pain c/o intermittent burning pain at LLQ incisions. She ran out of oxycodone yesterday and is taking ibuprofen only but this only lasts a few hours. Taking senokot as prescribed, +bm. Notes some dusky redness at two of the incision sites under the steri strips. No fever /chills. No nausea or vomiting. Discussed alternating ES Tylenol - 2 tablets every 6 hours (max 4000mg/24 hrs) with Ibuprofen - 600mg every 6 hours (max 2400mg/24 hrs). Ice to affected areas. May take oxycodone for pain not adequately relieved with Tylenol and ibuprofen and HS prn. Continue senokot to prevent constipation She will monitor incision sites and call if growing redness, thick drainage or worsening pain. Requests refill to be sent to [facility] on [address]. documented in this encounter Plan of Treatment Not on file documented as of this encounter Visit Diagnoses Diagnosis Acute appendicitis with localized peritonitis, without perforation, abscess, or gangrene documented in this encounter Care Teams E Business Project Manager Relationship Specialty Start Date End Date Chani Boudreaux PA-C [facility] [address] [place] [address] PCP - General Physician Diamond Grinder 4/23/24 Clinic, Marylu Sargent [address] [place] [phone] 03/09/16 documented as of this encounter
--- OUTSIDE RECORDS SUMMARY | 2025-02-20 00:43 | XMS_ITS | Encounter Summary ---
Author Organization [facility] Address [address] [place] [address]. [place] [address] Care Team Providers Care Operational Risk Manager Name Role Phone Clinic, Marylu Sargent Unavailable [phone] Chani Boudreaux PA-C Primary Care Provider Reason for Visit * Reason Onset Date Comments Results 01/25/2025 Urine culture re sults. Encounter Details Date Type Department Care Team (Late st Contact Info) Description 01/25/2025 Telephone [facility] [place] [address] [place] [address] Cherelle Saravia MD [address] [place] [address] Results (Urine culture results. 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 She should be sure to finish the Macrobid that was prescribed by Dr. Saravia. Patient verbalizes understanding and agrees. documented in this encounter Plan of Treatment Not on file documented as of this encounter Visit Diagnoses Not on filedocumented in this encounter Care Teams Operational Risk Manager Relationship Specialty Start Date End Date Chani Boudreaux PA-C [facility] [address] [place] [address] PCP - General Physician Benefits Technician 12/21/23 Marylu Donis [address] [place] [phone] 03/09/16 documented as of this encounter
--- OUTSIDE RECORDS SUMMARY | 2025-02-20 00:45 | XMS_ITS | Clinical Summary ---
Author Organization [facility] Address [address] [place] [address] Care Team Providers Care Negotiator Sales Name Role Phone Clinic, Mary[facility] Sargent Unavailable [phone] Chani Boudreaux PA-C Primary Care Provider Allergies Active Allergy Reactions Criticality Noted Date Comments Amoxicillin Hives,Rash Low 01/30/2025 Bees Anaphylaxis High 03/24/2017 Levaquin Swelling 05/05/2013 Morphine Sulfate Shortness Of Breath High 05/05/2013 Penicillins 05/06/2013 Adhesive Tape 03/24/2017 PAPER TAPE Medications EPINEPHrine (EPIPEN/ADRENACL ICK/OR ANY BX GENERIC EQUIV) 0.3 MG/0.3ML injection 2-pack Inject 0.3 mLs (0.3 mg) into the muscle once as needed for anaphylaxis 0.6 mL 03/24/20 17 Active albuterol (PROAIR HFA/PROVENTIL HFA/VENTOLIN HFA) 108 (90 BASE) MCG/ACT InhalerIndicatio ns:Asthma Inhale 2 puffs into the lungs as needed 1 Inhaler 05/20/20 17 Active ibuprofen (ADVIL/MOTRIN) 200 MG tablet Take 200 mg by mouth every 4 hours as needed for mild pain Active SUMAtriptan (IMITREX) 25 MG tablet Take 25 mg by mouth at onset of headache for migraine Active senna-docusate (SENOKOT-S/PERIC OLACE) 8.6-50 MG tabletIndication s:Acute appendicitis with localized peritonitis, without perforation, abscess, or gangrene Take 1-2 tablets by mouth 2 times daily as needed for constipation. 30 tablet 01/22/20 25 Active ondansetron (ZOFRAN ODT) 4 MG ODT tabIndications:A cute appendicitis with localized peritonitis, without perforation, abscess, or gangrene Take 1 tablet (4 mg) by mouth every 8 hours as needed for nausea. 5 tablet 01/22/20 25 Active oxyCODONE (ROXICODONE) 5 MG tabletIndication s:Acute appendicitis with localized peritonitis, without perforation, abscess, or gangrene Take 1 tablet (5 mg) by mouth every 4 hours as needed for moderate to severe pain. 4 tablet 01/24/20 25 Active loratadine (CLARITIN) 10 MG tablet Take 10 mg by mouth daily 025 Discontin ued(Med Rec(No AVS / No eCancel)) albuterol (2.5 MG/3ML) 0.083% neb solution Inhale 2.5 mg into the lungs every 6 hours as needed 05/27/20 17 025 Discontin ued(Med Rec(No AVS / No eCancel)) guaiFENesin-code ine (ROBITUSSIN AC) 100-10 MG/5ML SOLN solution Take 5-10 mLs by mouth every 4 hours as needed for cough 120 mL 03/29/20 18 025 Discontin ued(Med Rec(No AVS / No eCancel)) ipratropium - albuterol 0.5 mg/2.5 mg/3 mL (DUONEB) 0.5-2.5 (3) MG/3ML neb solution Take 1 vial (3 mLs) by nebulization every 6 hours as needed for shortness of breath / dyspnea or wheezing 360 mL 03/29/20 18 025 Discontin ued(Med Rec(No AVS / No eCancel)) oxyCODONE-acetam inophen (PERCOCET) 5-325 MG tablet Take 1 tablet by mouth every 6 hours as needed for severe pain 025 Discontin ued(Med Rec(No AVS / No eCancel)) promethazine (PHENERGAN) 25 MG tablet Take 1 tablet (25 mg) by mouth every 6 hours as needed for nausea 10 tablet 08/21/20 18 025 Discontin ued(Med Rec(No AVS / No eCancel)) predniSONE (DELTASONE) 20 MG tablet Take two tablets (= 40mg) each day for 5 (five) days 10 tablet 04/19/20 19 025 Discontin ued(Med Rec(No AVS / No eCancel)) oxyCODONE (ROXICODONE) 5 MG tablet Take 1 tablet (5 mg) by mouth every 6 hours as needed for pain 12 tablet 04/11/20 20 025 Discontin ued(Med Rec(No AVS / No eCancel)) ibuprofen (ADVIL/MOTRIN) 200 MG tablet Take 2 tablets (400 mg) by mouth every 8 hours as needed for pain 30 tablet 04/11/20 20 025 Discontin ued(Med Rec(No AVS / No eCancel)) cyclobenzaprine (FLEXERIL) 10 MG tablet Take 1 tablet (10 mg) by mouth 3 times daily as needed for muscle spasms 10 tablet 12/21/19 24 025 Discontin ued(Med Rec(No AVS / No eCancel)) nitroFURantoin macrocrystal-mon ohydrate (MACROBID) 100 MG capsuleIndicatio ns:Acute appendicitis with localized peritonitis, without perforation, abscess, or gangrene Take 1 capsule (100 mg) by mouth 2 times daily for 7 days. 14 capsule 01/22/20 25 025 Discontin ued(Med Rec(No AVS / No eCancel)) oxyCODONE (ROXICODONE) 5 MG tabletIndication s:Acute appendicitis with localized peritonitis, without perforation, abscess, or gangrene Take 1 tablet (5 mg) by mouth every 4 hours as needed for moderate to severe pain. 4 tablet 01/22/20 25 025 Discontin ued(Reord er (No AVS)) Active Problems Problem Noted Date Diagnosed Date Generalized abdominal pain 01/31/2025 Toxic effect of acetaminophe n, accidental or unintentional, initial encounter 01/30/2025 Urinary tract infection without hematuria, site unspecified 01/21/2025 Appendicitis, unspecified appendicitis type 12/29 Sprain of lumbar region 11/05/2010 11/05/2010 Encounters Date Type Department Care Team Description 02/02/2025 Results Follow-Up [facility] - General Medicine & Pediatrics [address] [place] [phone] Mónica Ricardo PA-C 01/29/2025 7:07 PM CDT - 02/01/2025 1:01 PM CDT Hospital Encounter [place] [address] [facility] [address] [place] [address] Montrell Lopez MD Dorn, Karen T, MD Oljira, Kirk Phillips MD Toxic effect of acetaminophen, accidental or unintentional, initial encounter; Generalized abdominal pain Discharge Disposition: Home or Self Care 01/29/2025 Travel 01/25/2025 Telephone [facility] [address] [place] [phone] Cherelle Saravia MD Results (Urine culture results. ) 01/24/2025 MyC Medical Advice [facility] [address] [place] [phone] Shayla Barron RN 01/23/2025 Refill [facility] [address] [place] [phone] Cherelle Saravia MD Refill Request (S/p lap appy 01/21/25. First refill. ) 01/21/2025 8:30 AM CDT - 01/21/2025 10:25 AM CDT Surgery [facility] [address] [place] [phone] Cherelle Saravia MD APPENDECTOMY, ROBOT-ASSISTED, LAPAROSCOPIC, USING DA MARK XI 01/21/2025 8:13 AM CDT Anesthesia Event [facility] [address] [place] [address] Johnny Goldberg MD Allen, Brian J, MD 01/21/2025 1:09 AM CDT - 01/21/2025 2:18 PM CDT Hospital Encounter [facility] [address] [place] [address] Yazmin Lehman DO Shaheen, Jessica, MD Acute appendicitis with localized peritonitis, without perforation, abscess, or gangrene (Primary Dx); Appendicitis, unspecified appendicitis type; Urinary tract infection without hematuria, site unspecified; Sepsis, due to unspecified organism, unspecified whether acute organ dysfunction present (H) Discharge Disposition: Home or Self Care 01/21/2025 Travel from Last 3 Months Family History Medical History Relation Comments Cancer [...] School Help Needed Not on file 12/21 Food Insecurity Answer Date Recorded Within the past 12 months, d id you worry that your food would run out before you got money to buy more? No 01/30/2025 Within the past 12 months, d id the food you bought just not last and you didn t have money to get more? No 01/30/2025 Housing Stability Answer Date Recorded Do you have housing? (Housin g is defined as stable permanent housing and does not include staying outside in a car, in a tent, in an abandoned building, in an overnight senior living, or couch-surfing.) Yes 01/30/2025 Are you worried about losing your housing? No 01/30/2025 Financial Resource Strain Answer Date R ecorded Within the past 12 months, h ave you or your family members you live with been unable to get utilities (heat, electricity) when it was really needed? No 01/30/2025 Transportation Needs Answer Date Record ed Within the past 12 months, h as lack of transportation kept you from medical appointments, getting your medicines, non-medical meetings or appointments, work, or from getting things that you need? No 01/30/2025 Interpersonal Safety Answer Date Record ed Do you feel physically and e motionally safe where you currently live? No 01/30/2025 Within the past 12 months, h ave you been hit, slapped, kicked or otherwise physically hurt by someone? Patient unable to answer 01/30/2025 Within the past 12 months, h ave you been humiliated or emotionally abused in other ways by your partner or ex-partner? 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 Gender Identity Not on file Sexual Orientation Not on file Last Filed Vital Signs Vital Sign Reading Time Taken Comments Blood Pressure 144/76 02/01/2025 6:19 AM CDT Pulse 75 02/01/2025 6:19 AM CDT Temperature 36.6 C (97.9 F) 02/01/2025 6:19 AM CDT Respiratory Rate 12 02/01/2025 6:19 AM CDT Oxygen Saturation 94% 02/01/2025 6:19 AM CDT Inhaled Oxygen Concentration - - Weight 121.4 kg (267 lb 9.6 oz) 02/01/2025 6:19 AM CDT Height 170.2 cm (5' 7) 01/30/2025 2:32 AM CDT Body Mass Index 41.91 01/30/2025 2:32 AM CDT Plan of Treatment Health Maintenance Due Date Last Done Comments ADVANCE CARE PLANNING 1976 ANNUAL REVIEW OF HM ORDERS 1976 CT COLONOGRAPHY 1976 FIT 1976 FLEX SIG 1976 sDNA (Cologuard) 1976 YEARLY PREVENTIVE VISIT 1979 COLONOSCOPY 1986 COLORECTAL CANCER SCREENING 1986 HEPATITIS B VACCINE (1 of 3 - + 3-dose series) 1995 LIPID 2016 MAMMO SCREENING 05/25/2020 05/25/2018 COVID-19 VACCINE ( season) 2024 11/04/2020 PHQ-2 (once per calendar year) 2024 INFLUENZA VACCINE (Season Ended) 2025 06/25/2023, 05/08/2021, 05/24/2018, Additional history exists PAP 07/28/2026 07/28/2023, 07/28/2023 ZOSTER VACCINE (1 of 2) 2026 DIABETES SCREENING 02/02/2028 02/01/2025, 0 01/31/2025, 01/30/2025, Additional history exists DTAP/TDAP/TD VACCINE (5 - Td or Tdap) 09/16/2033 09/16/2023, 02/08/2015, 05/03/2013, Additional history exists HIV SCREENING Completed 09/28/2014 PNEUMOCOCCAL VACCINE: PEDIATRICS (0 to 5 YEARS) AND AT-RISK PATIENTS (6 to 49 YEARS) Aged Out 01/28/2017 No longer eligible based on patient's age to complete this topic HEPATITIS C SCREENING Completed 01/31/2025, 025 HPV VACCINE Aged Out No longer eligi ble based on patient's age to complete this topic MENINGITIS VACCINE Aged Out No longer eligible based on patient's age to complete this topic Procedures Procedure Name Priority Date/Time Associated Diagnosis Comments COMPREHENSIVE METABOLIC PANEL STAT 02/01/2025 7:53 AM CDT FERRITIN Routine 01/31/2025 1:37 PM CDT IRON AND IRON BINDING CAPACITY Routine 01/31/2025 1:37 PM CDT HEPATITIS A ANTIBODY IGM Routine 01/31/2025 1:37 PM CDT HEPATITIS B CORE ANTIBODY Routine 01/31/2025 1:37 PM CDT HEPATITIS B SURFACE ANTIBODY Routine 01/31/2025 1:37 PM CDT HEPATITIS B SURFACE ANTIGEN Routine 01/31/2025 1:37 PM CDT HEPATITIS C ANTIBODY Routine 01/31/2025 1:37 PM CDT F ACTIN EIA WITH REFLEX Routine 01/31/2025 1:37 PM CDT ANTI NUCLEAR BERRY IGG BY IFA WITH REFLEX Routine 01/31/2025 1:37 PM CDT IGG Routine 01/31/2025 1:37 PM CDT EXTRA PURPLE TOP EDTA (LAB USE ONLY) Routine 01/31/2025 10:35 AM CDT COMPREHENSIVE METABOLIC PANEL STAT 01/31/2025 10:35 AM CDT CK TOTAL Add-On 01/30/2025 7:03 AM CDT INR Routine 01/30/2025 7:03 AM CDT CBC WITH PLATELETS Routine 01/30/2025 7: 03 AM CDT COMPREHENSIVE METABOLIC PANEL Routine 01/30/2025 7:03 AM CDT GLUCOSE BY METER Routine 01/30/2025 6:10 AM CDT BLOOD CULTURE STAT 01/30/2025 1:43 AM CDT BLOOD CULTURE STAT 01/30/2025 1:35 AM CDT LACTIC ACID WHOLE BLOOD WITH 1X REPEAT IN 2 HR WHEN >2 STAT 01/30/2025 1:35 AM CDT ACUTE HEPATITIS PANEL Add-On 01/30/2025 12:28 AM CDT SALICYLATE LEVEL STAT 01/30/2025 12:2 8 AM CDT ACETAMINOPHEN LEVEL STAT 01/30/2025 1 2:28 AM CDT EKG 12-LEAD, TRACING ONLY STAT 01/30/2025 12:01 AM CDT GGT STAT 01/29/2025 11:56 PM CDT HEPATIC FUNCTION PANEL STAT 01/29/2025 11:56 PM CDT TROPONIN T, HIGH SENSITIVITY STAT 01/29/2025 11:[address] CHEST PE ABDOMEN PELVIS W CONTRAST STAT 01/29/2025 9:27 PM CDT EKG 12-LEAD, TRACING ONLY STAT 01/29/2025 7:14 PM CDT CBC WITH PLATELETS & DIFFERENTIAL STAT 01/29/2025 7:03 PM CDT HEPATIC FUNCTION PANEL STAT 01/29/2025 7:03 PM CDT CBC WITH PLATELETS AND DIFFERENTIAL STAT 01/29/2025 7:03 PM CDT D DIMER QUANTITATIVE STAT 01/29/2025 7:03 PM CDT TROPONIN T, HIGH SENSITIVITY STAT 01/29/2025 7:03 PM CDT BASIC METABOLIC PANEL STAT 01/29/2025 7:03 PM CDT ROUTINE UA WITH MICROSCOPIC STAT 01/29/2025 7:02 PM CDT SURGICAL PATHOLOGY EXAM Routine 01/21/2025 9:22 AM CDT ANE AIRWAY ETT PERFORMABLE Routine 01/21/2025 8:30 AM CDT LAPAROSCOPY, SURGICAL; APPENDECTOMY 01/21/2025 8:19 AM CDT Appendicitis, unspecified appendicitis type CT ABDOMEN PELVIS W CONTRAST STAT 01/21/2025 2:48 AM CDT BLOOD CULTURE STAT 01/21/2025 1:53 AM CDT BLOOD CULTURE STAT 01/21/2025 1:52 AM CDT LACTIC ACID WHOLE BLOOD WITH 1X REPEAT IN 2 HR WHEN >2 STAT 01/21/2025 1:52 AM CDT URINE CULTURE STAT 01/21/2025 1:02 AM CDT ROUTINE UA WITH MICROSCOPIC REFLEX TO CULTURE STAT 01/21/2025 1:02 AM CDT CBC WITH PLATELETS & DIFFERENTIAL STAT 01/21/2025 12:55 AM CDT HCG QUALITATIVE STAT 01/21/2025 12:55 AM CDT EXTRA RED TOP TUBE STAT 01/21/2025 12 :55 AM CDT EXTRA BLUE TOP TUBE STAT 01/21/2025 1 2:55 AM CDT CBC WITH PLATELETS AND DIFFERENTIAL STAT 01/21/2025 12:55 AM CDT EXTRA TUBE STAT 01/21/2025 12:55 AM CDT LIPASE STAT 01/21/2025 12:55 AM CDT COMPREHENSIVE METABOLIC PANEL STAT 01/21/2025 12:55 AM CDT from Last 3 Months Results * (ABNORMAL) Comprehensive metabolic panel (02/01/2025 7:53 AM CDT) Only the most recent of4 resultswithin the time period is included. Sodium 140 135 - 145 mmol/L 02/01/2025 8:46 AM CDT [facility] Potassium 4.2 3.4 - 5.3 mmol/L 02/01/2025 8:46 AM CDT [facility] Carbon Dioxide (CO2) 28 22 - 29 mmol/L 02/01/2025 8:46 AM CDT [facility] Anion Gap 9 7 - 15 mmol/L 02/01/2025 8:46 AM CDT [facility] Urea Nitrogen 12.2 6.0 - 20.0 mg/dL 02/01/2025 8:46 AM CDT [facility] Creatinine 0.44(L) 0.51 - 0.95 mg/dL 02/01/2025 8:46 AM CDT [facility] GFR Estimate >90 >60 mL/min/1.7 3m2 02/01/2025 8:46 AM CDT LABORATORY Comment:eGFR calculated usin 2020 CKD-EPI equation. Calcium 8.8 8.8 - 10.4 mg/dL 02/01/2025 8:46 AM CDT LABORATORY Chloride 103 98 - 107 mmol/L 02/01/2025 8:46 AM CDT LABORATORY Glucose 101(H) 70 - 99 mg/dL 02/01/2025 8:46 AM CDT [facility] Alkaline Phosphatase 217(H) 40 - 150 U/L 02/01/2025 8:46 AM CDT LABORATORY AST 02/01/2025 8:46 AM CDT LABORATORY Comment:Unsatisfactory speci men - hemolyzed ALT 394(H) 0 - 50 U/L 02/01/2025 8:46 AM CDT LABORATORY Protein Total 6.9 6.4 - 8.3 g/dL 02/01/2025 8:46 AM CDT LABORATORY Albumin 3.9 3.5 - 5.2 g/dL 02/01/2025 8:46 AM CDT LABORATORY Bilirubin Total 0.4 <=1.2 mg/dL 02/01/2025 8:46 AM CDT LABORATORY Blood STRUCTURE OF LEFT UPPER LIMB / Unknown Venipuncture / Unknown 02/01/2025 7:53 AM CDT 02/01/2025 8:07 AM CDT us Kirk Morrison MD LAB - BLOOD ORDERABLES Final Result LABORATORY [facility] [address] [facility] [facility], no room number) [place] [address], [facility] [place] * Hepatitis B Surface Antibody (01/31/2025 1:37 PM CDT) Hepatitis B Surface Antibody Reactive 01/31/2025 7:16 PM CDT [facility] Comment:A reactive result in dicates recovery from acute or chronic hepatitis B virus (HBV) infection or acquired immunity from HBV vaccination. This assay does not differentiate between a vaccine-induced immune response and an immune response induced by infection with HBV. A positive total antihepatitis B core result would indicate that the hepatitis B surface antibody response is due to past HBV infection. Hepatitis B Surface Antibody Instrument Value 142.00 <8.5 m[IU]/mL 01/31/2025 7:16 PM CDT [facility] Comment: Assay performance characteristics have not been established for the use of the Elecsys Anti-HBs assay as an aid in determining susceptibility to HBV infection prior to or following vaccination in infants, children, or adolescents. Blood STRUCTURE OF LEFT HAND / Unknown Venipuncture / Unknown 01/31/2025 1:37 PM CDT 01/31/2025 1:41 PM CDT Farhan Schafer MD LAB - BLOOD ORDERABLES Final Res ult LABORATORY [facility] [address] [facility], [address] * IgG (01/31/2025 1:37 PM CDT) [facility] Immunoglobulin G 901 610 - 1,616 mg/dL 02/01/2025 9:58 AM CDT SPECIALTY CORE/PROT/END O Blood STRUCTURE OF LEFT HAND / Unknown Venipuncture / Unknown 01/31/2025 1:37 PM CDT 01/31/2025 1:41 PM CDT Farhan Schafer MD LAB - BLOOD ORDERABLES Final Res ult SPECIALTY CORE/PROT/ENDO [facility]/Prot/Endo [address] [facility], [address] * (ABNORMAL) Anti Nuclear Berry IgG by IFA with Reflex (01/31/2025 1:37 PM CDT) [facility] CARLOS interpretation Borderline Positive(A) Negative 02/01/2025 12:19 PM CDT [facility] SPECIALTY CORE/PROT/EN DO Comment: Negative: <1:40 Borderline Positive: 1:40 - 1:80 Positive: >1:80 CARLOS pattern 1 Speckled 02/01/2025 12:19 PM CDT [facility] SPECIALTY CORE/PROT/EN DO CARLOS titer 1 1:40 02/01/2025 12:19 PM CDT [facility] SPECIALTY CORE/PROT/EN DO Blood STRUCTURE OF LEFT HAND / Unknown Venipuncture / Unknown 01/31/2025 1:37 PM CDT 01/31/2025 1:41 PM CDT Farhan Schafer MD LAB - BLOOD ORDERABLES Final Res ult [facility] SPECIALTY CORE/PROT/ENDO Specialty Core/Prot/Endo [address] [facility], [address] * Iron and iron binding capacity (01/31/2025 1:37 PM CDT) Iron 98 37 - 145 ug/dL 01/31/2025 2:17 PM CDT [facility] Iron Binding Capacity 262 240 - 430 ug/dL 01/31/2025 2:17 PM CDT [facility] Iron Sat Index 37 15 - 46 % 01/31/2025 2:17 PM CDT LABORATORY Blood STRUCTURE OF LEFT HAND / Unknown Venipuncture / Unknown 01/31/2025 1:37 PM CDT 01/31/2025 1:41 PM CDT Farhan Schafer MD LAB - BLOOD ORDERABLES Final Res ult LABORATORY [facility] [address] Lab (1st floor, no room number) [place] [address] * Hepatitis C antibody (01/31/2025 1:37 PM CDT) Hepatitis C Antibody Nonreactive Nonreactive 01/31/2025 7:16 PM CDT [facility] Comment: A nonreactive screening test result does not exclude the possibility of exposure to or infection with HCV. Nonreactive screening test results in individuals with prior exposure to HCV may be due to antibody levels below the limit of detection of this assay or lack of reactivity to the HCV antigens used in this assay. Patients with recent HCV infections (<3 months from time of exposure) may have false-negative HCV antibody results due to the time needed for seroconversion (average of 8 to 9 weeks). Assay performance characteristics have not been established in populations of immunocompromised or immunosuppressed patients. Blood STRUCTURE OF LEFT HAND / Unknown Venipuncture / Unknown 01/31/2025 1:37 PM CDT 01/31/2025 1:41 PM CDT Farhan Schafer MD LAB - BLOOD ORDERABLES Final Res ult Performing Organization Address [facility] Co de Phone Number U LABORATORY [facility] [address] [facility], [facility] [address] * Hepatitis B surface antigen (01/31/2025 1:37 PM CDT) Hepatitis B Surface Antigen Nonreactive Nonreactive 01/31/2025 7:16 PM CDT [facility] Comment: Assay performance characteristics have not been established for testing of newborns. Blood STRUCTURE OF LEFT HAND / Unknown Venipuncture / Unknown 01/31/2025 1:37 PM CDT 01/31/2025 1:41 PM CDT Farhan Schafer MD LAB - BLOOD ORDERABLES Final Res ult [facility] LABORATORY [facility] [address] [facility], [facility] [address] * Hepatitis B core antibody (01/31/2025 1:37 PM CDT) Hepatitis B Core Antibody Total Nonreactive Nonreactive 01/31/2025 7:16 PM CDT [facility] Comment: Nonreactive hepatitis B core antibody test results indicate the absence of exposure to hepatitis B virus and no evidence of recent, past/resolved, or chronic hepatitis B. Assay performance characteristics have not been established in patients under 21, women, or in populations of immunocompromised or immunosuppressed patients. Blood STRUCTURE OF LEFT HAND / Unknown Venipuncture / Unknown 01/31/2025 1:37 PM CDT 01/31/2025 1:41 PM CDT Result [facility] Farhan Schafer MD LAB - BLOOD ORDERABLES Final Res ult Performing Organization Address City/[facility] Co de Phone Number LABORATORY [facility] [address] [facility], [address] * Hepatitis A antibody IgM (01/31/2025 1:37 PM CDT) Pathologist [facility] Hepatitis A Antibody IgM Nonreactive Nonreactive 01/31/2025 7:16 PM CDT U LAB[facility]ORY Comment: Nonreactive results indicate either inadequate or delayed anti-HAV IgM response after known exposure to HAV or absence of acute or recent hepatitis A. Assay performance characteristics have not been established for immunocompromised or immunosuppressed patients. Blood STRUCTURE OF LEFT HAND / Unknown Venipuncture / Unknown 01/31/2025 1:37 PM CDT 01/31/2025 1:41 PM CDT Result [facility] Farhan Schafer MD LAB - BLOOD ORDERABLES Final Res ult Performing Organization Address [facility] Co de Phone Number LABORATORY [facility] [address] [facility], [address], [place] [address] [place] [address] * (ABNORMAL) Ferritin (01/31/2025 1:37 PM CDT) Pathologist [facility] Ferritin 493(H) 6 - 175 ng/mL 01/31/2025 6:52 PM CDT [facility] Blood STRUCTURE OF LEFT HAND / Unknown Venipuncture / Unknown 01/31/2025 1:37 PM CDT 01/31/2025 1:41 PM CDT Farhan Schafer MD LAB - BLOOD ORDERABLES Final Res ult [facility] [address] [facility], [address] [place] [address], [facility] [place] * F Actin EIA with reflex (01/31/2025 1:37 PM CDT) F-Actin (Smooth Muscle) Ab, IgG by KIMMIE 14 0 - 19 Units 02/02/2025 9:04 AM CDT [facility] Comment: If F-Actin (Smooth Muscle) Antibody, IgG is negative, the Smooth Muscle Antibody titer by IFA is not performed. REFERENCE INTERVAL: F-Actin (Smooth Muscle) Antibody, IgG by KIMMIE 19 Units or less ....... Negative 20 - 30 Units .......... Weak Positive-Suggest repeat testing in two to three weeks with fresh specimen. 31 Units or greater..... Positive-Suggestive of autoimmune hepatitis type 1 or chronic active hepatitis. F-actin IgG antibodies have been shown to have increased sensitivity for autoimmune hepatitis (AIH) but lower specificity than smooth muscle antibodies (SMA). F-actin IgG antibodies can also be seen in SMA-negative disease controls (non-AIH), especially in patients with primary biliary cirrhosis and chronic hepatitis C infections. Some patients with AIH may be SMA-positive but negative for F-actin IgG. Consider testing for SMA by IFA if suspicion for AIH is strong. Performed By: [facility] [address] [place] [address] [employer] Consultant: Tobi Washington MD, PhD CLIA Number: [id number] Blood STRUCTURE OF LEFT HAND / Unknown Venipuncture / Unknown 01/31/2025 1:37 PM CDT 01/31/2025 1:41 PM CDT Farhan Schafer MD LAB - BLOOD ORDERABLES Final Res ult [facility] [address] [place] [address], [facility] [place] [phone] * Extra Purple Top EDTA (LAB USE ONLY) (01/31/2025 10:35 AM CDT) Hold Specimen JIC 01/31/2025 11:46 AM CDT [facility] Blood STRUCTURE OF RIGHT HAND / Unknown Venipuncture / Unknown 01/31/2025 10:35 AM CDT 01/31/2025 10:40 AM CDT us Kristal Almaznar MD LAB - BLOOD ORDERABLES Final Res ult [facility] [address] Lab (1st floor, no room number) [place] [phone] * INR (01/30/2025 7:03 AM CDT) INR 1.10 0.85 - 1.15 01/30/2025 7:32 AM CDT [facility] PT 14.3 11.8 - 14.8 Seconds 01/30/2025 7:32 AM CDT [facility] Blood STRUCTURE OF LEFT HAND / Unknown Venipuncture / Unknown 01/30/2025 7:03 AM CDT 01/30/2025 7:15 AM CDT us Kristal Almanzar MD LAB - BLOOD ORDERABLES Final Res ult Performing Organization Address City/[facility]/ZIP Co de Phone Number [facility] [address] [address] [facility] (1st floor, no room number) [place] [id number] * CK total (01/30/2025 7:03 AM CDT) CK 34 26 - 192 U/L 01/30/2025 4:05 PM CDT [facility] Blood STRUCTURE OF LEFT HAND / Unknown Venipuncture / Unknown 01/30/2025 7:03 AM CDT 01/30/2025 7:15 AM CDT us Kirk Morrison MD LAB - BLOOD ORDERABLES Final Result [facility] [address] Lab (1st floor, no room number) [place] [address] * (ABNORMAL) CBC with platelets (01/30/2025 7:03 AM CDT) WBC Count 6.0 4.0 - 11.0 10e3/uL 01/30/2025 7:39 AM CDT [facility] RBC Count 4.32 3.80 - 5.20 10e6/uL 01/30/2025 7:39 AM CDT [facility] Hemoglobin 12.9 11.7 - 15.7 g/dL 01/30/2025 7:39 AM CDT [facility] Hematocrit 39.1 35.0 - 47.0 % 01/30/2025 7:39 AM CDT [facility] MCV 91 78 - 100 fL 01/30/2025 7:39 AM CDT [facility] MCH 29.9 26.5 - 33.0 pg 01/30/2025 7:39 AM CDT [facility] MCHC 33.0 31.5 - 36.5 g/dL 01/30/2025 7:39 AM CDT [facility] RDW 12.3 10.0 - 15.0 % 01/30/2025 7:39 AM CDT [facility] Platelet Count 103(L) 150 - 450 10e3/uL 01/30/2025 7:39 AM CDT [facility] Blood STRUCTURE OF LEFT HAND / Unknown Venipuncture / Unknown 01/30/2025 7:03 AM CDT 01/30/2025 7:15 AM CDT us Kristal Almanzar MD LAB - BLOOD ORDERABLES Final Res ult [facility] Acute Care Lab [address] Lab (1st floor, no room number) [place] [address] * (ABNORMAL) Glucose by meter (01/30/2025 6:10 AM CDT) GLUCOSE BY METER POCT 116(H) 70 - 99 mg/dL 01/30/2025 6:17 AM CDT [facility] POC Blood, Capillary BLOOD SPECIMEN / Unknown 01/30/2025 6:10 AM CDT 01/30/2025 6:17 AM CDT Kristal Almanzar MD LAB - BEAKER POCT Final Result [facility] POC [facility] Lab [address] Lab (1st floor, no room number) [place] [phone] * Blood Culture Peripheral blood (BC) Arm, Left (01/30/2025 1:43 AM CDT) Only the most recent of4 resultswithin the time period is included. Culture No Growth 02/04/2025 4:31 AM CDT [facility] Peripheral blood (BC) STRUCTURE OF LEFT UPPER LIMB / Unknown Venipuncture / Unknown 01/30/2025 1:43 AM CDT 01/30/2025 1:46 AM CDT Montrell Lopez MD LAB - MICRO GENERAL ORD ERABLES Final Result [facility] [address] [facility] [place] [address] * Lactic acid whole blood with 1x repeat in 2 hr when >2 (01/30/2025 1:35 AM CDT) Only the most recent of2 resultswithin the time period is included. Lactic Acid, Initial 1.2 0.7 - 2.0 mmol/L 01/30/2025 1:43 AM CDT [facility] Blood BLOOD SPECIMEN / Unknown Venipuncture / Unknown 01/30/2025 1:35 AM CDT 01/30/2025 1:40 AM CDT Montrell Lopez MD LAB - BLOOD ORDERABLES Final Result [facility] Acute [facility] Lab [address] Lab (1st floor, no room number) [place] [address] * Acute hepatitis panel (01/30/2025 12:28 AM CDT) Hepatitis A Antibody IgM Nonreactive Nonreactive 01/30/2025 3:01 AM CDT [facility] Comment: Nonreactive results indicate either inadequate or delayed anti-HAV IgM response after known exposure to HAV or absence of acute or recent hepatitis A. Assay performance characteristics have not been established for immunocompromised or immunosuppressed patients. Hepatitis B Core Antibody IgM Nonreactive Nonreactive 01/30/2025 3:01 AM CDT [facility] Comment: A nonreactive result suggests lack of recent exposure to the virus in the preceding 6 months. Assay performance characteristics have not been established in patients under 21, women, or in populations of immunocompromised or immunosuppressed patients. This assay has not been FDA Licensed for the screening of blood, plasma, and tissue donors. Hepatitis C Antibody Nonreactive Nonreactive 01/30/2025 3:01 AM CDT [facility] Comment: A nonreactive screening test result does not exclude the possibility of exposure to or infection with HCV. Nonreactive screening test results in individuals with prior exposure to HCV may be due to antibody levels below the limit of detection of this assay or lack of reactivity to the HCV antigens used in this assay. Patients with recent HCV infections (<3 months from time of exposure) may have false-negative HCV antibody results due to the time needed for seroconversion (average of 8 to 9 weeks). Assay performance characteristics have not been established in populations of immunocompromised or immunosuppressed patients. Hepatitis B Surface Antigen Nonreactive Nonreactive 01/30/2025 3:01 AM CDT [facility] Comment: Assay performance characteristics have not been established for testing of newborns. Blood BLOOD SPECIMEN / Unknown Venipuncture / Unknown 01/30/2025 12:28 AM CDT 01/30/2025 12:30 AM CDT us Montrell Lopez MD LAB - BLOOD ORDERABLES Final Result [facility] LAB[facility]AT[facility] [place] [facility] [address] [facility], [address] [place] [address], [facility] * Salicylate level (01/30/2025 12:28 AM CDT) Salicylate <0.3 mg/dL 01/30/2025 12:59 AM CDT LABORATORY Comment: Salicylate Reference Range Therapeutic: 3-10 mg/dL Anti inflammatory: 15-30 mg/dL Blood BLOOD SPECIMEN / Unknown Venipuncture / Unknown 01/30/2025 12:28 AM CDT 01/30/2025 12:30 AM CDT Montrell Lopez MD LAB - BLOOD ORDERABLES Final Result LABORATORY [facility] Care Lab [address] (1st floor, no room number) [place] [phone] * (ABNORMAL) Acetaminophen level (01/30/2025 12:28 AM CDT) Pathologist [facility] Acetaminophen <5.0(L) 10.0 - 30.0 ug/mL 01/30/2025 12:59 AM CDT LABORATORY Blood BLOOD SPECIMEN / Unknown Venipuncture / Unknown 01/30/2025 12:28 AM CDT 01/30/2025 12:30 AM CDT Montrell Lopez MD LAB - BLOOD ORDERABLES Final Result [facility] [address] Lab (1st floor, no room number) [place] [phone] * EKG 12 lead (01/30/2025 12:01 AM CDT) Only the most recent of2 resultswithin the time period is included. Systolic Blood Pressure mmHg RADIOLOGY RESULTS Diastolic Blood Pressure mmHg RADIOLOGY RESULTS Ventricular Rate 85 BPM RAD IOLOGY RESULTS Atrial Rate 85 BPM RADIOLOG Y RESULTS MT Interval 124 ms RADIOLOG Y RESULTS QRS Duration 114 ms RADIOLO GY RESULTS QT 370 ms RADIOLOGY RESULTS QTc 440 ms RADIOLOGY RESULTS P [place] 40 degrees RADIOLOGY RESULTS R AXIS 73 degrees RADIOLOGY RESULTS T [place] 60 degrees RADIOLOGY RESULTS Interpretation ECG Sinus rhythm Normal ECG When compared with ECG of 29-Jan-2025 19:14, (unconfirmed) No significant change was found Unconfirmed report - interpretation of this ECG is computer generated - see medical record for final interpretation Confirmed by - EMERGENCY ROOM, PHYSICIAN ([id number]), photograph editor Glenn Martínez ([id number]) on 01/30/2025 7:41:50 AM RADIOLOGY RESULTS 01/30/2025 12:0 1 AM CDT 01/30/2025 7:41 AM CDT Montrell Lopez MD ECG ORDERABLES Edited Result - Final RADIOLOGY RESULTS * Troponin T, High Sensitivity (01/29/2025 11:56 PM CDT) Only the most recent of2 resultswithin the time period is included. Troponin T, High Sensitivity <6 <=14 ng/L 01/30/2025 12:21 AM CDT LABORATORY Comment: Either a High Sensitivity Troponin T baseline (0 hours) value = 100 ng/L, or an increase in High Sensitivity Troponin T = 7 ng/L at 2 hours compared to 0 hours (2-0 hours), suggests myocardial injury, and urgent clinical attention is required. If the 2-0 hours increase is <7 ng/L, a High Sensitivity Troponin T result above gender-specific reference ranges warrants further evaluation. Recommendations for further evaluation include correlation with clinical decision-making tool (e.g., HEART), a 3rd High Sensitivity Troponin T test 2 hours after the 2nd (a 20% change from baseline would represent concern), admission for observation, close PCC/cardiology follow-up, or urgent outpatient provocative testing. Blood BLOOD SPECIMEN / Unknown Venipuncture / Unknown 01/29/2025 11:56 PM CDT 01/30/2025 12:00 AM CDT Montrell Lopez MD LAB - BLOOD ORDERABLES Final Result LABORATORY [facility] Acute Care Lab [address] Lab (1st floor, no room number) [place] [address], [facility] * (ABNORMAL) Hepatic function panel (01/29/2025 11:56 PM CDT) Only the most recent of2 resultswithin the time period is included. Protein Total 7.0 6.4 - 8.3 g/dL 01/30/2025 12:21 AM CDT [facility] Albumin 4.1 3.5 - 5.2 g/dL 01/30/2025 12:21 AM CDT [facility] Bilirubin Total 0.7 <=1.2 mg/dL 01/30/2025 12:21 AM CDT [facility] Alkaline Phosphatase 195(H) 40 - 150 U/L 01/30/2025 12:21 AM CDT [facility] AST 282(H) 0 - 45 U/L 01/30/2025 12:21 AM CDT [facility] ALT 427(H) 0 - 50 U/L 01/30/2025 12:21 AM CDT [facility] Bilirubin Direct 0.32(H) 0.00 - 0.30 mg/dL 01/30/2025 12:21 AM CDT [facility] Comment:As of 25, refer ence ranges and trending lines may vary depending on the testing location. Blood BLOOD SPECIMEN / Unknown Venipuncture / Unknown 01/29/2025 11:56 PM CDT 01/30/2025 12:00 AM CDT us Montrell Lopez MD LAB - BLOOD ORDERABLES Final Result LABORATORY [facility] Acute Care Lab [address] [facility] Lab (1st floor, no room number) [place] [address], [facility] * (ABNORMAL) GGT (01/29/2025 11:56 PM CDT) Pathologist [facility] GGT 232(H) 5 - 36 U/L 01/30/2025 2:52 AM CDT [facility] Blood BLOOD SPECIMEN / Unknown Venipuncture / Unknown 01/29/2025 11:56 PM CDT 01/30/2025 12:00 AM CDT us Montrell Lopez MD LAB - BLOOD ORDERABLES Final Result [facility] Lab [address] [facility], [address] [place] [address], [facility] * CT Chest PE Abdomen Pelvis w Contrast (01/29/2025 9:27 PM CDT) Anatomical Region Laterality Modality Chest, SUBRAD CT BODY, UMP CT CHEST, RAD CT Computed Tomography 01/29/2025 9:27 PM CDT Impressions 01/29/2025 11:17 PM CDT IMPRESSION: 1. Interval appendectomy since 01/21/2025. No abscess. 2. A trace amount of bilateral pleural fluid. 3. No other acute abnormality identified in the abdomen or pelvis. 4. No visualized pulmonary embolus. Narrative 01/29/2025 11:17 PM CDT EXAM: CT CHEST WITH CONTRAST - PULMONARY EMBOLISM PROTOCOL CT ABDOMEN AND PELVIS WITH CONTRAST LOCATION: [facility] DATE/TIME: 01/29/2025 9:27 PM CDT INDICATION: Status post appendectomy on 01/21/2025. Worsening bilateral abdominal pain. Pain radiating to the back. Left-sided chest pain. COMPARISON: 01/21/2025 - CT abdomen and pelvis. 12/21/2023 - CT chest, abdomen, and pelvis. TECHNIQUE: CT angiogram chest and routine CT abdomen and pelvis with IV contrast. 2D and 3D MIP reconstructions of the chest were performed by the lead nuclear medicine technologist. Pulmonary arterial phase through the chest and venous phase through the abdomen and pelvis. Dose reduction techniques were used. CONTRAST: 100 mL Isovue 370. FINDINGS: ANGIOGRAM CHEST: No visualized pulmonary embolus. The thoracic aorta is normal in caliber without dissection. LUNGS AND PLEURA: 0.5 cm nodule in the lateral aspect of the left lower lobe (series 7 image 180). This was also present on 12/21/2023, and is therefore likely of benign etiology. A trace amount of bilateral pleural fluid. MEDIASTINUM/AXILLAE: Unremarkable. CORONARY ARTERY CALCIFICATION: Absent. HEPATOBILIARY: Prior cholecystectomy. SPLEEN: Unremarkable. PANCREAS: Unremarkable. ADRENAL GLANDS: Unremarkable. KIDNEYS/BLADDER: Slight multifocal left renal atrophy. No suspicious renal lesions. Tiny 0.2 cm nonobstructing calculus in the inferior pole of the left kidney. BOWEL: The stomach, small and large bowel are normal in caliber. A few colonic diverticula are present, without evidence of diverticulitis. Interval appendectomy since 01/21/2025. No circumscribed fluid collection in the abdomen or pelvis. No visualized bowel wall thickening, pneumatosis, or free intraperitoneal gas. LYMPH NODES: Unremarkable. PELVIC ORGANS: An intrauterine device is present in the central uterus. 2.9 cm left adnexal cyst, most likely a functional ovarian cyst. MUSCULOSKELETAL: Bilateral L5 pars interarticularis defects. OTHER: None. Procedure Note Manoj Noel MD - 01/29/2025 EXAM: CT CHEST WITH CONTRAST - PULMONARY EMBOLISM PROTOCOL CT ABDOMEN AND PELVIS WITH CONTRAST LOCATION: [facility] DATE/TIME: 01/29/2025 9:27 PM CDT INDICATION: Status post appendectomy on 01/21/2025. Worsening bilateralabdominal pain. Pain radiating to the back. Left-sided chest pain. COMPARISON: 01/21/2025 - CT abdomen and pelvis. 12/21/2023 - CT chest, abdomen, and pelvis. TECHNIQUE: CT angiogram chest and routine CT abdomen and pelvis with IVcontrast. 2D and 3D MIP reconstructions of the chest were performed by theCT technologist. Pulmonary arterial phase through the chest and venousphase through the abdomen and pelvis. Dose reduction techniques were used. CONTRAST: 100 mL Isovue 370. FINDINGS: ANGIOGRAM CHEST: No visualized pulmonary embolus. The thoracic aorta isnormal in caliber without dissection. LUNGS AND PLEURA: 0.5 cm nodule in the lateral aspect of the left lowerlobe (series 7 image 180). This was also present on 12/21/2023, and istherefore likely of benign etiology. A trace amount of bilateral pleuralfluid. MEDIASTINUM/AXILLAE: Unremarkable. CORONARY ARTERY CALCIFICATION: Absent. HEPATOBILIARY: Prior cholecystectomy. SPLEEN: Unremarkable. PANCREAS: Unremarkable. ADRENAL GLANDS: Unremarkable. KIDNEYS/BLADDER: Slight multifocal left renal atrophy. No suspicious renallesions. Tiny 0.2 cm nonobstructing calculus in the inferior pole of theleft kidney. BOWEL: The stomach, small and large bowel are normal in caliber. A fewcolonic diverticula are present, without evidence of diverticulitis.Interval appendectomy since 01/21/2025. No circumscribed fluid collectionin the abdomen or pelvis. No visualized bowel wall thickening, pneumatosis, or free intraperitoneal gas. LYMPH NODES: Unremarkable. PELVIC ORGANS: An intrauterine device is present in the central uterus.2.9 cm left adnexal cyst, most likely a functional ovarian cyst. MUSCULOSKELETAL: Bilateral L5 pars interarticularis defects. OTHER: None. IMPRESSION: 1. Interval appendectomy since 01/21/2025. No abscess. 2. A trace amount of bilateral pleural fluid. 3. No other acute abnormality identified in the abdomen or pelvis. 4. No visualized pulmonary embolus. us Montrell Lopez MD IMG CT ORDERABLES Final Result * (ABNORMAL) CBC with platelets and differential (01/29/2025 7:03 PM CDT) Only the most recent of2 resultswithin the time period is included. WBC Count 12.2(H) 4.0 - 11.0 10e3/uL 01/29/2025 7:14 PM CDT [facility] RBC Count 4.70 3.80 - 5.20 10e6/uL 01/29/2025 7:14 PM CDT [facility] Hemoglobin 14.4 11.7 - 15.7 g/dL 01/29/2025 7:14 PM CDT [facility] Hematocrit 42.1 35.0 - 47.0 % 01/29/2025 7:14 PM CDT [facility] MCV 90 78 - 100 fL 01/29/2025 7:14 PM CDT [facility] MCH 30.6 26.5 - 33.0 pg 01/29/2025 7:14 PM CDT [facility] MCHC 34.2 31.5 - 36.5 g/dL 01/29/2025 7:14 PM CDT [facility] RDW 12.3 10.0 - 15.0 % 01/29/2025 7:14 PM CDT [facility] Platelet Count 128(L) 150 - 450 10e3/uL 01/29/2025 7:14 PM CDT [facility] % Neutrophils 91 % 01/29/2025 7:14 PM CDT [facility] % Lymphocytes 3 % 01/29/2025 7:14 PM CDT [facility] % Monocytes 5 % 01/29/2025 7:14 PM CDT [facility] % Eosinophils 1 % 01/29/2025 7:14 PM CDT [facility] % Basophils 0 % 01/29/2025 7:14 PM CDT [facility] % Immature Granulocytes 0 % 01/29/2025 7:14 PM CDT [facility] NRBCs per 100 WBC 0 <1 /100 025 7:14 PM CDT [facility] Absolute Neutrophils 11.1(H) 1.6 - 8.3 10e3/uL 01/29/2025 7:14 PM CDT [facility] Absolute Lymphocytes 0.3(L) 0.8 - 5.3 10e3/uL 01/29/2025 7:14 PM CDT [facility] Absolute Monocytes 0.6 0.0 - 1.3 10e3/uL 01/29/2025 7:14 PM CDT [facility] Absolute Eosinophils 0.1 0.0 - 0.7 10e3/uL 01/29/2025 7:14 PM CDT [facility] Absolute Basophils 0.0 0.0 - 0.2 10e3/uL 01/29/2025 7:14 PM CDT [facility] Absolute Immature Granulocytes 0.1 <=0.4 10e3/uL 01/29/2025 7:14 PM CDT [facility] Absolute NRBCs 0.0 10e3/uL 01/29/2025 7:14 PM CDT [facility] Blood STRUCTURE OF LEFT UPPER LIMB / Unknown Venipuncture / Unknown 01/29/2025 7:03 PM CDT 01/29/2025 7:11 PM CDT us Montrell Lopez MD LAB - BLOOD ORDERABLES Final Result [facility] Acute [facility] Lab [address] [facility] Lab (1st floor, no room number) [place] [address], [facility] * (ABNORMAL) D dimer quantitative (01/29/2025 7:03 PM CDT) D-Dimer Quantitative 1.71(H) 0.00 - 0.50 ug/mL FEU 01/29/2025 7:32 PM CDT LABORATORY Blood STRUCTURE OF LEFT UPPER LIMB / Unknown Venipuncture / Unknown 01/29/2025 7:03 PM CDT 01/29/2025 7:11 PM CDT [facility] LABORATORY - 01/29/2025 7:32 PM CDT This D-dimer assay is intended for use in conjunction with a clinical pretest probability assessment model to exclude pulmonary embolism (PE) and deep venous thrombosis (DVT) in outpatients suspected of PE or DVT. The cut-off value is 0.50 ug/mL FEU. us Montrell Lopez MD LAB - BLOOD ORDERABLES Final Result LABORATORY [facility] Care Lab [address] [facility] Lab (1st floor, no room number) [place] [address], [facility] * (ABNORMAL) Basic metabolic panel (BMP) (01/29/2025 7:03 PM CDT) Sodium 139 135 - 145 mmol/L 01/29/2025 7:31 PM CDT LABORATORY Potassium 3.9 3.4 - 5.3 mmol/L 01/29/2025 7:31 PM CDT LABORATORY Chloride 101 98 - 107 mmol/L 01/29/2025 7:31 PM CDT LABORATORY Carbon Dioxide (CO2) 24 22 - 29 mmol/L 01/29/2025 7:31 PM CDT LABORATORY Anion Gap 14 7 - 15 mmol/L 01/29/2025 7:31 PM CDT LABORATORY Urea Nitrogen 13.9 6.0 - 20.0 mg/dL 01/29/2025 7:31 PM CDT LABORATORY Creatinine 0.54 0.51 - 0.95 mg/dL 01/29/2025 7:31 PM CDT LABORATORY GFR Estimate >90 >60 mL/min/1.7 3m2 01/29/2025 7:31 PM CDT LABORATORY Comment:eGFR calculated usin 2020 CKD-EPI equation. Calcium 8.9 8.8 - 10.4 mg/dL 01/29/2025 7:31 PM CDT LABORATORY Glucose 116(H) 70 - 99 mg/dL 01/29/2025 7:31 PM CDT LABORATORY Blood STRUCTURE OF LEFT UPPER LIMB / Unknown Venipuncture / Unknown 01/29/2025 7:03 PM CDT 01/29/2025 7:11 PM CDT us Montrell Lopez MD LAB - BLOOD ORDERABLES Final Result RH LABORATORY [facility] Care Lab [address] Lab (1st floor, no room number) [place] [address], [facility] [place] * (ABNORMAL) UA with Microscopic (01/29/2025 7:02 PM CDT) Color Urine Yellow Colorless, Straw, Light Yellow, Yellow 01/29/2025 7:26 PM CDT LABORATORY Appearance Urine Slightly Cloudy(A) Clear 01/29/2025 7:26 PM CDT LABORATORY Glucose Urine Negative Negative mg/dL 01/29/2025 7:26 PM CDT LABORATORY Bilirubin Urine Small(A) Negative 7:26 PM CDT LABORATORY Ketones Urine Negative Negative mg/dL 01/29/2025 7:26 PM CDT LABORATORY Specific Cameron Urine 1.034 1.003 - 1.035 01/29/2025 7:26 PM CDT LABORATORY Blood Urine Large(A) Negative 01/29/2025 7:26 PM CDT LABORATORY pH Urine 6.0 5.0 - 7.0 01/29/2025 7:26 PM CDT LABORATORY Protein Albumin Urine 30(A) Negative mg/dL 01/29/2025 7:26 PM CDT LABORATORY Urobilinogen Urine 6.0(A) Normal mg/dL 01/29/2025 7:26 PM CDT LABORATORY Nitrite Urine Negative Negative 01/29/2025 7:26 PM CDT LABORATORY Leukocyte Esterase Urine Moderate(A) Negative 01/29/2025 7:26 PM CDT LABORATORY Mucus Urine Present(A) None Seen /LPF 01/29/2025 7:26 PM CDT LABORATORY Calcium Oxalate Crystals Urine Many(A) None Seen /HPF 01/29/2025 7:26 PM CDT [facility] RBC Urine 13(H) <=2 /HPF 01/29/2025 7:26 PM CDT [facility] WBC Urine 5 <=5 /HPF 01/29/2025 7:26 PM CDT [facility] LAB[facility] Squamous Epithelials Urine 9(H) <=1 /HPF 01/29/2025 7:26 PM CDT LABORATORY Urine MID-STREAM URINE SPECIMEN / Unknown Non-blood Collection / Unknown 01/29/2025 7:02 PM CDT 01/29/2025 7:10 PM CDT us Montrell Lopez MD LAB - URINE ORDERABLES Final Result LABORATORY [facility] Lab [address] Lab (1st floor, no room number) [place] [address] * Surgical Pathology Exam (01/21/2025 9:22 AM CDT) Case Report Surgical Pathology Report Case: [id number] Authorizing Provider: Cherelle Saravia MD Collected: 01/21/2025 09:22 AM Ordering Location: [facility] Received: 01/21/2025 09:51 AM Main OR Pathologist: [...] findings: The resection margin is inked blue Search Marketing Analyst sections are submitted in formalin as follows: A1-resection margin (inked blue), half of the distal tip and representative personal service appendix cross sections. EDILSON Joyner(ASCP) 01/23/2025 8:43 AM 01/24/2025 4:08 PM CDT LABORATORY Microscopic Description A formal microscopic examination has been performed 01/24/2025 4:08 PM CDT LABORATORY Performing Labs The technical component of this testing was completed at [facility]. Stain controls for all stains resulted within this report have been reviewed and show appropriate reactivity. 01/24/2025 4:08 PM CDT LABORATORY Case Images 01/24/2025 4:08 PM CDT LABORATORY Tissue APPENDIX STRUCTURE / Unknown 01/21/2025 9:22 AM CDT 01/21/2025 9:51 AM CDT Cherelle HOOD - HALLEY AP Final Result LABORATORY [facility] Acute Care Lab [address] 1[address] floor, [address] [place] [address], [facility] [phone] LABORATORY [facility] Lab [address] Lab (1st floor, no room number) [place] [address], [facility] * ANE AIRWAY ETT PERFORMABLE (01/21/2025 8:30 AM CDT) Joann Giordano APRN APPARATUS REPAIR MECHANIC - 01/21/2025 8:30 AM CDT Joann Gonzalez APRN APPARATUS REPAIR MECHANIC 01/21/2025 8:35 AM Airway Patient location during procedure: OR Procedure Start/Stop Times: 01/21/2025 8:30 AM Staff - APPARATUS REPAIR MECHANIC: Deambrogio, Joann, GRINDER OUTSIDE DIAMETER APPARATUS REPAIR MECHANIC Performed By: APPARATUS REPAIR MECHANIC Consent for Airway Urgency: elective Indications and [...] Time: 01/21/2025 8:30 AM Johnny Goldberg MD [place] ANESTHESIA Final Result * CT Abdomen Pelvis w Contrast (01/21/2025 [...] EXAM: CT ABDOMEN PELVIS W CONTRAST LOCATION: [facility] DATE: 01/21/2025 INDICATION: Abdominal pain, flank [...] MUSCULOSKELETAL: No suspicious osseous lesion. Procedure Note Alireza Gan MD - 01/21/2025 EXAM: CT ABDOMEN PELVIS W CONTRAST LOCATION: [facility] DATE: 01/21/2025 INDICATION: Abdominal pain, flank [...] sigmoid colon, without CTevidence of acute diverticulitis. us Yazmin Lehman DO IMG CT ORDERABLES Final Re sult * (ABNORMAL) UA with Microscopic reflex to Culture (01/21/2025 1:02 AM CDT) Color Urine Yellow Colorless, Straw, Light Yellow, Yellow 01/21/2025 1:21 AM CDT LABORATORY Appearance Urine Slightly Cloudy(A) Clear 01/21/2025 1:21 AM CDT LABORATORY Glucose Urine Negative Negative mg/dL 01/21/2025 1:21 AM CDT LABORATORY Bilirubin Urine Negative Negative 1:21 AM CDT LABORATORY Ketones Urine Trace(A) Negative mg/dL 01/21/2025 1:21 AM CDT LABORATORY Specific Cameron Urine 1.026 1.003 - 1.035 01/21/2025 1:21 AM CDT LABORATORY Blood Urine Trace(A) Negative 01/21/2025 1:21 AM CDT LABORATORY pH Urine 5.5 5.0 - 7.0 01/21/2025 1:21 AM CDT LABORATORY Protein Albumin Urine 30(A) Negative mg/dL 01/21/2025 1:21 AM CDT LABORATORY Urobilinogen Urine Normal Normal mg/dL 01/21/2025 1:21 AM CDT LABORATORY Nitrite Urine Positive(A) Negative 01/21/2025 1:21 AM CDT LABORATORY Leukocyte Esterase Urine Moderate(A) Negative 01/21/2025 1:21 AM CDT LABORATORY Bacteria Urine Many(A) None Seen /HPF 01/21/2025 1:21 AM CDT LABORATORY Mucus Urine Present(A) None Seen /LPF [...] Urine Culture ordered based on laboratory criteria us Yazmin Lehman DO LAB - URINE ORDERABLES Fin al Result LABORATORY [facility] Lab [address] Lab (1st floor, no room number) [place] [address] * (ABNORMAL) Urine Culture (01/21/2025 [...] Escherichia coli Trimethoprim/Sulfamethoxazole ELIZA <=1/19 ug/mL: Susceptible Yazmin Lehman DO LAB - MICRO GENERAL ORDERA BLES Final Result [facility] Inf. Diseases Diag. Lab [address] [facility], Room [address] [place] [address] * Extra Red Top Tube (01/21/2025 12:55 AM CDT) Hold Specimen [facility] 01/21/2025 2:01 AM CDT [facility] LAB[facility]AT[facility] Blood BLOOD SPECIMEN / Unknown Venipuncture / Unknown 01/21/2025 12:55 AM CDT 01/21/2025 12:59 AM CDT Yazmin Lehman DO LAB - BLOOD ORDERABLES Fin al Result [facility] [address] Lab (1st floor, no room number) [place] [address] * Extra Blue Top Tube (01/21/2025 12:55 AM CDT) Hold Specimen [facility] 01/21/2025 2:01 AM CDT [facility] Blood BLOOD SPECIMEN / Unknown Venipuncture / Unknown 01/21/2025 12:55 AM CDT 01/21/2025 12:59 AM CDT Yazmin Lehman DO LAB - BLOOD ORDERABLES Fin al Result [facility] [address] Lab (1st floor, no room number) [place] [address] * Lipase (01/21/2025 12:55 AM CDT) Lipase 39 13 - 60 U/L 01/21/2025 1:32 AM CDT [facility] Blood BLOOD SPECIMEN / Unknown Venipuncture / Unknown 01/21/2025 12:55 AM CDT 01/21/2025 12:59 AM CDT Yazmin Lehman DO LAB - BLOOD ORDERABLES Fin al Result Performing Organization Address City/[facility]/ZIP Co de Phone Number [facility] Lab [address] Lab (1st floor, no room number) [place] [address] * HCG QUALitative (blood) (01/21/2025 12:55 AM CDT) hCG Serum Qualitative Negative Negative ELIZA 01/21/2025 1:38 AM CDT [facility] LABORATORY Comment:This test is for scr eening purposes. Results should be interpreted along with the clinical picture. Confirmation testing is available if warranted by ordering [id number], HCG Quantitative . Blood BLOOD SPECIMEN / Unknown Venipuncture / Unknown 01/21/2025 12:55 AM CDT 01/21/2025 12:59 AM CDT Result [facility] Yazmin Lehman DO LAB - BLOOD ORDERABLES Fin al Result Performing Organization Address [facility] Co de Phone Number [facility] Lab [address] Lab (1st floor, no room number) [place] [address] from Last 3 Months Insurance [facility] Advance Directives For more information, please contact: [phone] * Full Code (Latest Code Status on File) Date Activated Date Inactivated Comments 01/30/2025 4:46 AM 02/01/2025 3:06 PM All basic and advanced life-sustaining interventions are performed as appropriate Question Answer Comments Code status determined by: Discussion with patie nt/ legal decision maker Care Teams Negotiator Sales Relationship Specialty Start Date End Date Chani Boudreaux PA-C [facility] [address] [place] [address] PCP - General Physician Gyroscope Repairer 12/21/23 [facility] [address] [place] [address] 03/09/16
--- OUTSIDE RECORDS SUMMARY | 2025-02-20 00:45 | XMS_ITS | Encounter Summary ---
Author Organization [place] Address [address] [place] [address]. 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
--- OUTSIDE RECORDS SUMMARY | 2025-02-20 00:46 | XMS_ITS | Encounter Summary ---
Author Organization [place] Address [address] [place] [address] Care Team Providers Care Watch Guard Gate Name Role Phone Miladis Rubi MD Primary Care Provider [phone] Clinic, Marylu Sargent Primary Care Provider + [phone] Miladis Rubi MD Unavailable [phone] Clinic, Marylu Sargent Unavailable [phone] Cherry Muñoz Primary Care Provid er Chani Boudreaux PA-C Primary Care Provider Reason for Referral * - Closed Specialty Diagnoses / Procedures Referred By Contanabell t Referred To Contact Diagnoses Unspecified complication of , antepartum Renee Page MD [address] [place] [address] Phone: tel: fax: Referral ID Status Reason Start Date Expiration Date Visits Re quested Visits Authorized [id number] Closed 03/03/2013 08/30/2013 1 1 Question Answer [facility] Location [facility] Number of fetuses 1 M Consultation w/Ultrasound Yes fax [phone] clinic name [facility] [phone] Comments >> Patient may proceed with recommendations for further testing as directed by the Maternal Medicine Specialist >> Specific reason for referral (issue/concern):limited outside scan Estimated Date of Delivery: 07-12-13 Your patient will be scheduled using [facility] Scheduling guidelines. If requesting Echo: [facility] will determine appropriate location for exam due [...] where they were done to arrange for spanish moss picker prior to your scheduled appointment. Any new CT, MRI or other procedures ordered by your specialist must be performed at a [facility] or coordinated by your clinic's referral office. 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 Gender Identity Not on file Sexual [...] Primary documented in this encounter Care Teams Watch Guard Gate Relationship Specialty Start Date End Date Miladis Rubi MD PCP - General 03/06/13 06/11/13 [facility], [address] [address] PCP - General 03/09/16 03/23/17 Cherry Muñoz [address] [place], [place] [address] [address] PCP - General 03/24/17 12/20/23 Chani Boudreaux PA-C [facility] [address] [place] [address] PCP - General Physician Order Takers Supervisor 12/21/23 Miladis Rubi MD 03/06/13 06/11/13 [facility], Marylu Sargent [address] [place] [address] 03/09/16 documented as of this encounter
--- OUTSIDE RECORDS SUMMARY | 2025-02-20 00:46 | XMS_ITS | Encounter Summary ---
Author Organization [place] Address [address] [place] [address]. [place] [address] Care Team Providers Care Plate Grainer Name Role Phone Clinic, Marylu Sargent Unavailable [phone] Chani Boudreaux PA-C Primary Care Provider Encounter Details Date Type Department Care Team (Late st Contact Info) Description 02/02/2025 Results Follow-Up [facility] Services - General Medicine & Pediatrics [address] [place] [address] Mónica Ricardo PA-C [address] [place] [address] Social History Tobacco Use Types Packs/Day Years [...] in an abandoned building, in an overnight long term, or couch-surfing.) Yes 01/30/2025 Are you worried [...] on file 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 [address] [place] [address] PCP - General Physician Loan Clerk 12/21/23 [facility] [address] [place] [address] 03/09/16 documented as of this encounter
--- OUTSIDE RECORDS SUMMARY | 2025-02-20 00:47 | XMS_ITS | Clinical Summary ---
Author Organization [facility] Address [address] [place] [address] Care Team Providers Care Aircraft Painter Apprentice Name Role Phone Alvaro Bullock MD Unavailable [phone] Allergies Active Allergy Reactions Criticality Noted Date [...] 24 hours. 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 Not on file Not on file Not [...] Comments Blood Pressure 155/105 10/30/2020 9:30 AM PANEL WIRER Pulse 92 10/30/2020 9:30 AM PANEL WIRER Temperature 36.3 C (97.4 F) 10/30/2020 9:30 AM PANEL WIRER Respiratory Rate 18 10/30/2020 9:30 AM PANEL WIRER Oxygen Saturation 95% 10/30/2020 9:30 AM PANEL WIRER Inhaled Oxygen Concentration - - Weight 117.9 kg (260 lb) 10/30/2020 9:30 AM PANEL WIRER Height 172.7 cm (5' 8) 10/30/2020 9:30 AM PANEL WIRER Body Mass Index 39.53 10/30/2020 9:30 AM PANEL WIRER Plan of Treatment Health Maintenance Due Date Last Done Comments Hepatitis C screening for age 18-79 1994 Hepatitis B series for 19+ (1 of 3 - 19+ 3-dose series) 1995 BMI (ht and wt on same day) for age 18+ 03/17/2020 03/17/2019, 07/26/2018, 06/23/2018, Additional history exists Depression screening for age 12+ 03/17/2020 03/17/2019, 05/27/2018, 05/25/2018, Additional history exists Colonoscopy through age 75 2021 Lipids for age 45-75 2021 02/07/2016 Mammogram for age 45-75 2021 05/25/2018, 12/07 COVID-19 vaccine series (2023- season) 2024 Tetanus booster 02/08/2025 02/08/2015, 11/2012 (Completed outside of [facility]), 05/03/2013, Additional history exists Influenza Vaccine (Season Ended) 2025 05/24/2018, 05/25/2017, 05/09/2016, Additional history exists Pap test for age 21-65 07/28/2028 , 07/28/2023, 02/12/2016, Additional history exists HIV for age 15-65 Completed 09/28/2014 Tdap Completed 02/08/2015, 11/2012, 03/01/2011 Pneumococcal series for age 6-49 Aged Out 01/28/2017 No longer eligible based on patient's age to complete this topic Medical Devices Implanted Type Area Instructional Paraprofessional Device Identifier Shelf Expiration Date Model / Serial / Lot Mesh Ventral 4.5in Ventralightst - [id number] Implanted:Qty: 1 on 08/04/2018 by Yony Kingston MD at [facility] N/A: Abdomen [employer] 03/26/2020 [id number] / / [id number] Procedures Procedure Name Priority Date/Time Associated Diagnosis Comments GOLD LEAF LAYER THIN PREP PAP SCREEN IMAGED Routine 07/28/2023 4:45 PM PANEL WIRER XR MAMMO TOMMIE BILAT DIAG Routine 05/25/2018 1:41 PM CDT Breast discharge LIPID PANEL W REFLEX MEASURED LDL Routine 02/07/2016 9:50 AM CDT Non morbid obesity, unspecified obesity type ANTI HIV 1/2 Routine 09/28/2014 2:34 PM PANEL WIRER Supervision of other normal (HC) from Last 3 Months or Most Recently Relevant to Health Maintenance Results * GOLD LEAF LAYER THIN PREP PAP SCREEN IMAGED (07/28/2023 4:45 PM PANEL WIRER) Case Report Gynecologic Cytology Report Case: [id number] Authorizing Provider: Chani Boudreaux PA-C Collected: 07/28/2023 1645 Ordering Location: [facility] Received: 08/02/2023 1140 First Screen: Jess Prakash Specimen: GOLD LEAF LAYER ThinPrep Vial Screening, Cervical 08/06/2023 5:10 PM PANEL WIRER [facility] INTERPRETATION/ RESULT NEGATIVE FOR INTRAEPITHELIAL LESION OR MALIGNANCY (NIL) (none) 08/06/2023 5:10 PM PANEL WIRER [facility] [employer] [facility] at 1710 PANEL WIRER SPECIMEN ADEQUACY Satisfactory for evaluation Endocervical component present 08/06/2023 5:10 PM PANEL WIRER [facility] ENTRAL LABORAT[facility] HPV REQUEST HPV and PAP 08/06/2023 5:10 PM PANEL WIRER [facility] [employer] [facility] Date of LMP 07/12/2022 08/06/2023 5:10 PM PANEL WIRER [facility] ENTRAL LABORATORY Last Pap Date 08/06/2023 5:10 PM PANEL WIRER [facility] EN[facility] LAB[facility] Comment:unknown Additional Information 08/06/2023 5:10 PM PANEL WIRER [facility] EN[facility] LABORAT[facility] Comment: Interpreted at [facility] - [address], [place] [address] Automated Review Successful 08/06/2023 5:10 PM PANEL WIRER [facility] Comment:Specimen processed s uccessfully by automated research assistant device, ThinPrep Imaging System, [employer] ANCILLARY TESTING GOLD LEAF LAYER HPV Ordered, Please see separate report 08/06/2023 5:10 PM PANEL WIRER [facility] [employer] [facility] Note The pap test is a screening technique, not a diagnostic procedure. It is used primarily to screen for squamous cancers and precursor lesions. Published studies have shown that it is subject to both false negative and false positive results. The pap test should not be used as the sole means to diagnose or exclude pre-malignant and malignant lesions. 08/06/2023 5:10 PM PANEL WIRER [facility] Other (Cervical) 07/28/2023 4:45 PM PANEL WIRER 08/02/2023 11:40 AM PANEL WIRER us Chani Boudreaux PA-C PATHOLOGY/CYTOLOGY Final Res ult [facility] [address] [place] [address], [place] * XR MAMMO TOMMIE BILAT DIAG (05/25/2018 1:41 PM CDT) Anatomical Region Laterality Modality BREASTS, Breast Left, Breast Right Bilateral Mammography 05/25/2018 1:41 PM CDT Narrative 05/25/2018 4:14 PM CDT [facility] XR MAMMO TOMMIE BILAT DIAG, US BREAST [...] Procedure Note Carmela Callejas MD - 05/25/2018 [facility] XR MAMMO TOMMIE BILAT DIAG, US BREAST [...] the patient who should resume annual screeningmammography. us Lisa Patel DO MAMMO Final Result * (ABNORMAL) LIPID PANEL W REFLEX MEASURED LDL (02/07/2016 9:50 AM CDT) CHOLESTEROL,TOTAL 200(H) 100 - 199 mg/dL 02/07/2016 2:45 PM CDT [facility] TRAL LABORATORY TRIGLYCERIDES 99 <150 mg/dL 02/07/2016 2:45 PM CDT [facility] HDL CHOLESTEROL 40(L) >40 mg/dL 02/07/2016 2:45 PM CDT [facility] TR[facility] NON-HDL CHOLESTEROL 160(H) <145 mg/dl 02/07/2016 2:45 PM CDT [facility] TR[facility] LAB[facility]ORY CHOL/HDL RATIO 5.00(H) <4.50 02/07/2016 2:45 PM CDT [facility] LDL CHOLESTEROL 140(H) <=130 mg/dL 02/07/2016 2:45 PM CDT [facility] TR[facility]ATORY PATIENT STATUS FASTING 02/07/2016 2:45 PM CDT [facility] Blood specimen (specimen) BLOOD SPECIMEN / Unknown Venipuncture / Unknown 02/07/2016 9:50 AM CDT 02/07/2016 9:50 AM CDT Cherry Cain MD CHEMISTRY F inal Result [facility] [address] [place] [address], * ANTI HIV 1/2 (09/28/2014 2:34 PM PANEL WIRER) HIV-1/HIV-2 ANTIBODY Non-Reacti ve Non-Reacti ve 09/29/2014 12:20 AM PANEL WIRER [facility] TR[facility] Blood specimen (specimen) BLOOD SPECIMEN / Unknown Venipuncture / Unknown 09/28/2014 2:34 PM PANEL WIRER 09/28/2014 2:34 PM PANEL WIRER Narrative [facility] - 09/29/2014 12:20 AM PANEL WIRER HIV-1 p24 and HIV-1/HIV-2 Ab not detected us Cherry Cain MD SEND OUTS F inal Result [facility] [address] [place] [address], from Last 3 Months or Most Recently Relevant to Health Maintenance Insurance [facility] WC WORKERS COMP WC WORKERS COMP Advance Directives * Full Code [...] 2:29 PM 05/04/2015 9:42 AM Care Teams Aircraft Painter Apprentice Relationship Specialty Start Date End Date Alvaro Bullock MD Consulting Physician Dermatology 10/26/14
== END 2025-02-19 17:14 | disposition home or self-care (01) ==
LOC: MRI 17:13
PROVIDERS: PCP Physician Assistant Medical; Visit Provider Physician Assistant Medical
DX: R51.9 Headache, unspecified (principal); I67.82 Cerebral ischemia
CPT/HCPCS: 70553; A9575

== ENCOUNTER 2025-03-30 07:24 | Emergency (ER) | payer BC, SELFPAY ==
--- OUTSIDE RECORDS SUMMARY | 2025-03-30 07:26 | XMS_ITS | Encounter Summary ---
Author Organization [place] Address [address] [place] [address]. 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
--- OUTSIDE RECORDS SUMMARY | 2025-03-30 07:27 | XMS_ITS | Encounter Summary ---
Author Organization [place] Address [address] [place] [address] Care Team Providers Care Speech Pathologist Assistant Name Role Phone Miladis Rubi MD Primary Care Provider [phone] Clinic, Marylu Sargent Primary Care Provider [phone] Miladis Rubi MD Unavailable [phone] [facility], Marylu Sargent Unavailable [phone] Cherry Muñoz Primary Care Provid er Chani Boudreaux PA-C Primary Care Provider Reason for Referral * - Closed Specialty Diagnoses / Procedures Referred By Contanabell t Referred To Contact Diagnoses Unspecified complication of , antepartum Renee Page MD [address] [place] [address] Phone: tel: fax: Referral ID Status Reason Start Date Expiration Date Visits Re quested Visits Authorized [id number] Closed 03/03/2013 08/30/2013 1 1 Question Answer [facility] Location [facility] Number of fetuses 1 M Consultation w/Ultrasound Yes fax [phone] clinic name [facility] [phone] Comments >> Patient may proceed with recommendations for further testing as directed by the Maternal Medicine Specialist >> Specific reason for referral (issue/concern):limited outside scan Estimated Date of Delivery: 07-12-13 Your patient will be scheduled using [facility] Scheduling guidelines. If requesting Echo: [facility] will determine appropriate location for exam due [...] where they were done to arrange for chicken picker prior to your scheduled appointment. Any new CT, MRI or other procedures ordered by your specialist must be performed at a [facility] or coordinated by your clinic's referral office. >> List of current medications >> This referral request >> Any documents/labs given to you for this referral Encounter Details Date Type Department Care Team (Late st Contact Info) Description 03/03/2013 Orders Only [facility] Maternal Medicine Center [address] [address] Renee Page MD [address] [facility] [address] [place] [address] Unspecified complication of , antepartum (Primary Dx) Social History Tobacco Use Types Packs/Day Years Used Date Smoking Tobacco: Never Assessed Comments No Sex and Gender Information Value Date Recorded Sex Assigned at Not on file 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 Gender Identity Not on file Sexual [...] Primary documented in this encounter Care Teams Speech Pathologist Assistant Relationship Specialty Start Date End Date Miladis Rubi MD PCP - General 03/06/13 06/11/13 [facility], [address] [address] PCP - General 03/09/16 03/23/17 Cherry Muñoz [address] [place], [place] [address] [address] PCP - General 03/24/17 12/20/23 Chani Boudreaux PA-C [facility] [address] [place] [address] PCP - General Physician Hotbed Operator 12/21/23 Miladis Rubi MD 03/06/13 06/11/13 [facility], Marylu Sargent [address] [place] [address] 03/09/16 documented as of this encounter
--- OUTSIDE RECORDS SUMMARY | 2025-03-30 07:27 | XMS_ITS | Encounter Summary ---
Author Organization [place] Address [address] [place] [address]. 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
--- OUTSIDE RECORDS SUMMARY | 2025-03-30 07:27 | XMS_ITS | Clinical Summary ---
Author Organization [facility] Address [address] [place] [address] Care Team Providers Care Resident Services Coordinator Name Role Phone Clinic, Marylu Sargent Unavailable [phone] Chani Boudreaux PA-C Primary Care Provider Allergies [...] lungs as needed 1 Inhaler 7 Active ibuprofen (ADVIL/MOTRIN) 200 MG tablet Take [...] daily as needed for constipation. 30 tablet 5 Active ondansetron (ZOFRAN ODT) 4 MG ODT tabIndications:A cute appendicitis with localized peritonitis, without perforation, abscess, or gangrene Take 1 tablet (4 mg) by mouth every 8 hours as needed for nausea. 5 tablet 5 Active oxyCODONE (ROXICODONE) 5 MG tabletIndication s:Acute appendicitis with localized peritonitis, without perforation, abscess, or gangrene Take 1 tablet (5 mg) by mouth every 4 hours as needed for moderate to severe pain. 4 tablet 5 Active Active Problems Problem Noted Date Diagnosed Date Generalized abdominal pain 01/31/2025 Toxic effect of acetaminophe n, accidental or unintentional, initial encounter 01/30/2025 Urinary tract infection without hematuria, site unspecified 01/21/2025 Appendicitis, unspecified appendicitis type 12/29 Sprain of lumbar region 11/05/2010 11/05/2010 Encounters Date Type Department Care Team Description 02/02/2025 Results Follow-Up [facility] - General Medicine & Pediatrics [address] [place] [address] Mónica Ricardo PA-C 01/29/2025 7:07 PM CDT - 02/01/2025 1:01 PM CDT Hospital Encounter [facility] 5 Medical Surgical [address] [place] [address] Montrell Lopez MD Dorn, Karen T, MD Oljira, Amanuel Giragn, MD Toxic effect of acetaminophen, accidental or unintentional, initial encounter; Generalized abdominal pain Discharge Disposition: Home or Self Care 01/29/2025 Travel 01/25/2025 Telephone [facility] [address], [address] [place] [address] Cherelle Saravia MD Results (Urine culture results. ) 01/24/2025 MyC Medical Advice [facility] [address], [address] [place] [address] Shayla Barron RN 01/23/2025 Refill [facility] [address] [place] [address] Cherelle Saravia MD Refill Request (S/p lap appy 01/21/25. First refill. ) 01/21/2025 8:30 AM CDT - 01/21/2025 10:25 AM CDT Surgery [facility] PeriOp Services [address] [place] [address] Cherelle Saravia MD APPENDECTOMY, ROBOT-ASSISTED, LAPAROSCOPIC, USING DA MARK XI 01/21/2025 8:13 AM CDT Anesthesia Event [facility] PeriOp Services [address] [place] [address] Johnny Goldberg MD Allen, Brian J, MD 01/21/2025 1:09 AM CDT - 01/21/2025 2:18 PM CDT Hospital Encounter [facility] PreOP/PostOP [address] [place] [address] Yazmin Lehman, Cherelle Durán MD Acute appendicitis with localized peritonitis, without [...] Answer Date Recorded Do you have housing? 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 Calcium 8.8 8.8 - 10.4 mg/dL 02/01/2025 8:46 AM CDT [facility] Chloride 103 98 - 107 mmol/L 02/01/2025 8:46 AM CDT [facility] Glucose 101(H) 70 - 99 mg/dL 02/01/2025 8:46 AM CDT [facility] Alkaline Phosphatase 217(H) 40 - 150 U/L 02/01/2025 8:46 AM CDT [facility] AST 02/01/2025 8:46 AM CDT [facility] Comment:Unsatisfactory speci men - hemolyzed ALT 394(H) 0 - 50 U/L 02/01/2025 8:46 AM CDT [facility] Protein Total 6.9 6.4 - 8.3 g/dL 02/01/2025 8:46 AM CDT [facility] Albumin 3.9 3.5 - 5.2 g/dL 02/01/2025 8:46 AM CDT [facility] Bilirubin Total 0.4 <=1.2 mg/dL 02/01/2025 8:46 AM CDT LABORATORY Blood STRUCTURE OF LEFT UPPER LIMB / Unknown Venipuncture / Unknown 02/01/2025 7:53 AM CDT 02/01/2025 8:07 AM CDT us Kirk Morrison MD LAB - BLOOD ORDERABLES Final Result LABORATORY [facility] Lab [address] Lab (1st floor, no room number) [place] [address], [facility] * Hepatitis B Surface Antibody (01/31/2025 1:37 PM CDT) [facility] [address] Hepatitis B Surface Antibody Reactive 01/31/2025 7:16 PM CDT U LABORATORY Comment:A reactive result in dicates recovery [...] 142.00 <8.5 m[IU]/mL 01/31/2025 7:16 PM CDT LABORATORY Comment: Assay performance characteristics have not been established for the use of the Elecsys Anti-HBs assay as an aid in determining susceptibility to HBV infection prior to or following vaccination in infants, children, or adolescents. Blood STRUCTURE OF LEFT HAND / Unknown Venipuncture / Unknown 01/31/2025 1:37 PM CDT 01/31/2025 1:41 PM CDT us Farhan Schafer MD LAB - BLOOD ORDERABLES Final Res ult U LABORATORY [facility] [place] [facility] [address] [facility], [address] [place] [address], [facility] * IgG (01/31/2025 1:37 PM CDT) Immunoglobulin G 901 610 - 1,616 mg/dL 02/01/2025 9:58 AM CDT [facility]/PROT/END O Blood STRUCTURE OF LEFT HAND / Unknown Venipuncture / Unknown 01/31/2025 1:37 PM CDT 01/31/2025 1:41 PM CDT Farhan Schafer MD LAB - BLOOD ORDERABLES Final Res ult [facility] CORE/PROT/ENDO [facility]/Prot/Endo [address] [facility] [address], Room [address] * (ABNORMAL) Anti Nuclear Berry IgG by IFA with Reflex (01/31/2025 1:37 PM CDT) Pathologist [facility] CARLOS interpretation Borderline Positive(A) Negative 02/01/2025 12:19 [...] ORDERABLES Final Res ult [facility] SPECIALTY CORE/PROT/ENDO [facility] Special[facility] Core/Prot/Endo [address] [facility] [address] Building, [address] * Iron and iron binding capacity (01/31/2025 1:37 PM CDT) Pathologist [facility] [place] Iron 98 37 - 145 ug/dL 01/31/2025 [...] - BLOOD ORDERABLES Final Res ult LABORATORY [facility] Lab [address] Lab (1st floor, no room number) [place] [address] * Hepatitis C antibody (01/31/2025 1:37 PM CDT) Hepatitis C Antibody Nonreactive Nonreactive 01/31/2025 7:16 PM CDT U LAB[facility]ORY Comment: A nonreactive screening test result [...] BLOOD ORDERABLES Final Res ult U LABORATORY [facility] [place] [facility] [address] [facility], [address] [place] [address], [facility] * Hepatitis B surface antigen (01/31/2025 1:37 PM CDT) Hepatitis B Surface Antigen Nonreactive Nonreactive 01/31/2025 7:16 PM CDT [facility] Comment: Assay performance characteristics have not been established for testing of newborns. Blood STRUCTURE OF LEFT HAND / Unknown Venipuncture / Unknown 01/31/2025 1:37 PM CDT 01/31/2025 1:41 PM CDT Farhan Schafer MD LAB - BLOOD ORDERABLES Final Res ult Performing Organization Address [facility] de Phone Number U LABORATORY [facility] [place] [facility] [address] [facility], [facility] [address] * Hepatitis B core antibody (01/31/2025 1:37 PM CDT) Hepatitis B Core Antibody Total Nonreactive Nonreactive 01/31/2025 7:16 PM CDT [facility] Comment: Nonreactive hepatitis B core antibody [...] ORDERABLES Final Res ult Performing Organization Address [facility] de Phone Number U LABORATORY [facility] [place] [facility] [address] [facility], [facility] [address] * Hepatitis A antibody IgM (01/31/2025 1:37 PM CDT) Hepatitis A Antibody IgM Nonreactive Nonreactive 01/31/2025 7:16 PM CDT [facility] Comment: Nonreactive results indicate [...] - BLOOD ORDERABLES Final Res ult LABORATORY [facility] Lab [address] [facility], [address] [phone] * (ABNORMAL) Ferritin (01/31/2025 1:37 PM CDT) Pathologist [facility] Ferritin 493(H) 6 - 175 ng/mL 01/31/2025 6:52 PM CDT U LAB[facility]ATORY Blood STRUCTURE OF LEFT HAND / Unknown Venipuncture / Unknown 01/31/2025 1:37 PM CDT 01/31/2025 1:41 PM CDT Farhan Schafer MD LAB - BLOOD ORDERABLES Final Res ult Performing Organization Address [facility] de Phone Number LABORATORY Critical access hospital Lab [address] [facility], [address] [phone] [place] [address] * F Actin EIA with reflex (01/31/2025 1:37 PM CDT) Pathologist [facility] F-Actin (Smooth Muscle) Ab, IgG by KIMMIE 14 0 - 19 Units 02/02/2025 9:04 AM CDT [facility] Comment: If F-Actin (Smooth Muscle) Antibody, IgG [...] suspicion for AIH is strong. Performed By: [employer] [address] [place] [address] Gear Shaper: Tobi Washington MD, PhD CLIA Number: [id number] Blood STRUCTURE OF LEFT HAND / Unknown Venipuncture / Unknown 01/31/2025 1:37 PM CDT 01/31/2025 1:41 PM CDT us Farhan Schafer MD LAB - BLOOD ORDERABLES Final Res ult [facility] [address] [place] [address], [facility] [phone] * Extra Purple Top EDTA (LAB USE ONLY) (01/31/2025 10:35 AM CDT) Hold Specimen JIC 01/31/2025 11:46 AM CDT [facility] Blood STRUCTURE OF RIGHT HAND / Unknown Venipuncture / Unknown 01/31/2025 10:35 AM CDT 01/31/2025 10:40 AM CDT Kristal Almanzar MD LAB - BLOOD ORDERABLES Final Res ult RH LABORATORY [facility] Lab [address] Lab (1st floor, no room number) [place] [address] * INR (01/30/2025 7:03 AM CDT) INR 1.10 0.85 - 1.15 01/30/2025 7:32 AM CDT [facility] PT 14.3 11.8 - 14.8 Seconds 01/30/2025 7:32 AM CDT [facility] Blood STRUCTURE OF LEFT HAND / Unknown Venipuncture / Unknown 01/30/2025 7:03 AM CDT 01/30/2025 7:15 AM CDT Kristal Almanzar MD LAB - BLOOD ORDERABLES Final Res ult RH LABORATORY [facility] [address] Lab (1st floor, no room number) [place] [address] * CK total (01/30/2025 7:03 AM CDT) Pathologist [facility] [place] CK 34 26 - 192 U/L 01/30/2025 4:05 PM CDT [facility] Blood STRUCTURE OF LEFT HAND / Unknown Venipuncture / Unknown 01/30/2025 7:03 AM CDT 01/30/2025 7:15 AM CDT us Kirk Morrison MD LAB - BLOOD ORDERABLES Final Result Performing Organization Address [facility]/ZIP Co de Phone Number LABORATORY [facility] Lab [address] Lab (1st floor, no room number) [place] [phone] [place] [address] * (ABNORMAL) CBC with platelets (01/30/2025 7:03 [...] 7:03 AM CDT 01/30/2025 7:15 AM CDT Kristal Almanzar MD LAB - BLOOD ORDERABLES Final Res ult LABORATORY [facility] Lab [address] [employer] Lab (1st floor, no room number) [place] [phone] [place] [address] * (ABNORMAL) Glucose by meter (01/30/2025 6:10 AM CDT) GLUCOSE BY METER POCT 116(H) 70 - 99 mg/dL 01/30/2025 6:17 AM CDT LABORATORY POC Blood, Capillary BLOOD SPECIMEN / Unknown 01/30/2025 6:10 AM CDT 01/30/2025 6:17 AM CDT us Kristal Almanzar MD LAB - BEAKER POCT Final Result LABORATORY [facility] Lab [address] Lab (1st floor, no room number) [address] * Blood Culture Peripheral blood (BC) Arm, [...] ORD ERABLES Final Result [facility]U IDD LABORATORY [facility] Inf. Diseases Diag. Lab [address] [facility], [address] [place] [address] * Lactic acid whole blood with 1x repeat in 2 hr when >2 (01/30/2025 1:35 AM CDT) Only the most recent of2 resultswithin the time period is included. Pathologist [facility] Lactic Acid, Initial 1.2 0.7 - 2.0 mmol/L 01/30/2025 1:43 AM CDT LABORATORY Blood BLOOD SPECIMEN / Unknown Venipuncture / Unknown 01/30/2025 1:35 AM CDT 01/30/2025 1:40 AM CDT us Montrell Lopez MD LAB - BLOOD ORDERABLES Final Result LABORATORY [facility] [address] [facility] Lab (1st floor, no room number) [place] [address], [facility] * Acute hepatitis panel (01/30/2025 12:28 AM CDT) [facility] [address] Hepatitis A Antibody IgM Nonreactive Nonreactive 01/30/2025 [...] Antigen Nonreactive Nonreactive 01/30/2025 3:01 AM CDT LABORATORY Comment: Assay performance characteristics have not been established for testing of newborns. Blood BLOOD SPECIMEN / Unknown Venipuncture / Unknown 01/30/2025 12:28 AM CDT 01/30/2025 12:30 AM CDT Montrell Lopez MD LAB - BLOOD ORDERABLES Final Result LABORATORY [facility] [place] [facility] [address] [facility], [address] [place] [address] * Salicylate level (01/30/2025 12:28 AM CDT) Salicylate <0.3 mg/dL 01/30/2025 12:59 AM CDT LABORATORY Comment: Salicylate Reference Range Therapeutic: 3-10 mg/dL Anti inflammatory: 15-30 mg/dL Blood BLOOD SPECIMEN / Unknown Venipuncture / Unknown 01/30/2025 12:28 AM CDT 01/30/2025 12:30 AM CDT Montrell Lopez MD LAB - BLOOD ORDERABLES Final Result LABORATORY [facility] [address] Lab (1st floor, no room number) [place] [address] * (ABNORMAL) Acetaminophen level (01/30/2025 12:28 AM CDT) Acetaminophen <5.0(L) 10.0 - 30.0 ug/mL 01/30/2025 12:59 AM CDT LABORATORY Blood BLOOD SPECIMEN / Unknown Venipuncture / Unknown 01/30/2025 12:28 AM CDT 01/30/2025 12:30 AM CDT Montrell Lopez MD LAB - BLOOD ORDERABLES Final Result LABORATORY [facility] [address] Lab (1st floor, no room number) [place] [address], [facility] * EKG 12 lead (01/30/2025 12:01 AM CDT) Only the most recent of2 resultswithin the time period is included. Systolic Blood Pressure mmHg RADIOLOGY RESULTS Diastolic Blood Pressure mmHg RADIOLOGY RESULTS Ventricular Rate 85 BPM RAD IOLOGY RESULTS Atrial Rate 85 BPM RADIOLOG Y RESULTS ME Interval 124 ms RADIOLOG Y RESULTS QRS Duration 114 ms RADIOLO GY RESULTS QT 370 ms RADIOLOGY RESULTS QTc 440 ms RADIOLOGY RESULTS P Arg[place] 40 degrees RADIOLOGY RESULTS R AXIS 73 degrees RADIOLOGY RESULTS T Argyle 60 degrees RADIOLOGY RESULTS Interpretation ECG Sinus rhythm Normal ECG When compared with ECG of 29-Jan-2025 19:14, (unconfirmed) No significant change was found Unconfirmed report - interpretation of this ECG is computer generated - see medical record for final interpretation Confirmed by - EMERGENCY ROOM, PHYSICIAN ([id number]), mapping editor Glenn Martínez ([id number]) on 01/30/2025 7:41:50 AM RADIOLOGY RESULTS 01/30/2025 12:0 1 AM CDT 01/30/2025 7:41 AM CDT Montrell Lopez MD ECG ORDERABLES Edited Result - Final Performing Organization Address City/[facility]/ZIP Co de Phone Number RADIOLOGY RESULTS * Troponin T, High Sensitivity [...] LAB - BLOOD ORDERABLES Final Result LABORATORY [facility] [address] [facility] Lab (1st floor, no room number) [place] [address], [facility] * (ABNORMAL) Hepatic function panel (01/29/2025 11:56 PM CDT) Only the most recent of2 resultswithin the time period is included. Protein Total 7.0 6.4 - 8.3 g/dL 01/30/2025 12:21 AM CDT [facility] Albumin 4.1 3.5 - 5.2 g/dL 01/30/2025 12:21 AM CDT LABORATORY Bilirubin Total 0.7 <=1.2 mg/dL 01/30/2025 12:21 AM CDT [facility] Alkaline Phosphatase 195(H) 40 - 150 U/L 01/30/2025 12:21 AM CDT [facility] AST 282(H) 0 - 45 U/L 01/30/2025 12:21 AM CDT [facility] ALT 427(H) 0 - 50 U/L 01/30/2025 12:21 AM CDT [facility] Bilirubin Direct 0.32(H) 0.00 - 0.30 mg/dL 01/30/2025 12:21 AM CDT LABORATORY Comment:As of 25, refer ence ranges and trending lines may vary depending on the testing location. Blood BLOOD SPECIMEN / Unknown Venipuncture / Unknown 01/29/2025 11:56 PM CDT 01/30/2025 12:00 AM CDT Montrell Loepz MD LAB - BLOOD ORDERABLES Final Result LABORATORY [facility] [address] Lab (1st floor, no room number) [place] [address], [facility] * (ABNORMAL) GGT (01/29/2025 11:56 PM CDT) GGT 232(H) 5 - 36 U/L 01/30/2025 2:52 AM CDT [facility]ORY Blood BLOOD SPECIMEN / Unknown Venipuncture / Unknown 01/29/2025 11:56 PM CDT 01/30/2025 12:00 AM CDT Montrell Lopez MD LAB - BLOOD ORDERABLES Final Result UU LABORATORY [facility] [place] [facility] [address] [facility], [address] [place] [address], [facility] * CT Chest PE Abdomen Pelvis w [...] CT ABDOMEN AND PELVIS WITH CONTRAST LOCATION: [facility] DATE/TIME: 01/29/2025 9:27 PM CDT INDICATION: Status post appendectomy on 01/21/2025. Worsening bilateral abdominal pain. Pain radiating to the back. Left-sided chest pain. COMPARISON: 01/21/2025 - CT abdomen and pelvis. 12/21/2023 - CT chest, abdomen, and pelvis. TECHNIQUE: CT angiogram chest and routine CT abdomen and pelvis with IV contrast. 2D and 3D MIP reconstructions of the chest were performed by the cytotechnologist. Pulmonary arterial phase through the chest and [...] CT ABDOMEN AND PELVIS WITH CONTRAST LOCATION: [facility] DATE/TIME: 01/29/2025 9:27 PM CDT INDICATION: Status [...] or pelvis. 4. No visualized pulmonary embolus. Montrell Lopez MD IMG CT ORDERABLES Final [...] 7:03 PM CDT 01/29/2025 7:11 PM CDT Montrell Lopez MD LAB - BLOOD ORDERABLES Final Result Performing Organization Address [facility]/ZIP Co de Phone Number LABORATORY [facility] [address] Lab (1st floor, no room number) [place] [phone] * (ABNORMAL) D dimer quantitative (01/29/2025 7:03 PM CDT) Pathologist [facility] D-Dimer Quantitative 1.71(H) 0.00 - 0.50 ug/mL FEU 01/29/2025 7:32 PM CDT [facility] Blood STRUCTURE OF LEFT UPPER LIMB / Unknown Venipuncture / Unknown 01/29/2025 7:03 PM CDT 01/29/2025 7:11 PM CDT Narrative [facility] - 01/29/2025 7:32 PM CDT This D-dimer assay is intended for use in conjunction with a clinical pretest probability assessment model to exclude pulmonary embolism (PE) and deep venous thrombosis (DVT) in outpatients suspected of PE or DVT. The cut-off value is 0.50 ug/mL FEU. Montrell Lopez MD LAB - BLOOD ORDERABLES Final Result Performing Organization Address [facility]/ZIP Co de Phone Number [facility] Acute Care Lab [address] Lab (1st floor, no room number) [place] [address] * (ABNORMAL) Basic metabolic panel (BMP) (01/29/2025 7:03 PM CDT) Pathologist [facility] Sodium 139 135 - 145 mmol/L 01/29/2025 7:31 PM CDT [facility] Potassium 3.9 3.4 - 5.3 mmol/L 01/29/2025 7:31 PM CDT [facility] Chloride 101 98 [...] LAB - BLOOD ORDERABLES Final Result LABORATORY [facility] [address] [facility] Lab (1st floor, no room number) [place] [address], [facility] * (ABNORMAL) UA with Microscopic (01/29/2025 7:02 PM CDT) Color Urine Yellow Colorless, Straw, Light Yellow, Yellow 01/29/2025 7:26 PM CDT LABORATORY Appearance Urine Slightly Cloudy(A) Clear 01/29/2025 7:26 PM CDT LABORATORY Glucose Urine Negative Negative mg/dL 01/29/2025 7:26 PM CDT LABORATORY Bilirubin Urine Small(A) Negative 7:26 PM CDT LABORATORY Ketones Urine Negative Negative mg/dL 01/29/2025 7:26 PM CDT [facility] Specific [place] Urine 1.034 1.003 - 1.035 01/29/2025 7:26 PM CDT [facility] Blood Urine Large(A) Negative 01/29/2025 7:26 PM CDT LABORATORY pH Urine 6.0 5.0 - 7.0 01/29/2025 7:26 PM CDT [facility] Protein Albumin Urine 30(A) Negative mg/dL 01/29/2025 7:26 PM CDT [facility] Urobilinogen Urine 6.0(A) Normal mg/dL 01/29/2025 7:26 PM CDT LABORATORY Nitrite Urine Negative Negative 01/29/2025 7:26 PM CDT LABORATORY Leukocyte Esterase Urine Moderate(A) Negative 01/29/2025 7:26 PM CDT LABORATORY Mucus Urine Present(A) None Seen /LPF 01/29/2025 7:26 PM CDT LABORATORY Calcium Oxalate Crystals Urine Many(A) None Seen /HPF 01/29/2025 7:26 PM CDT LABORATORY RBC Urine 13(H) <=2 /HPF 01/29/2025 7:26 PM CDT LABORATORY WBC Urine 5 <=5 /HPF 01/29/2025 7:26 PM CDT LABORATORY Squamous Epithelials Urine 9(H) <=1 /HPF 01/29/2025 7:26 PM CDT LABORATORY Urine MID-STREAM URINE SPECIMEN / Unknown Non-blood Collection / Unknown 01/29/2025 7:02 PM CDT 01/29/2025 7:10 PM CDT us Montrell Lopez MD LAB - URINE ORDERABLES Final Result [facility] Acute Care Lab [address] Lab (1st floor, no room number) [place] [address], [facility] * Surgical Pathology Exam (01/21/2025 9:22 AM CDT) Case Report Surgical Pathology Report Case: [id number] Authorizing Provider: Cherelle Saravia MD Collected: 01/21/2025 09:22 AM Ordering Location: [facility] Received: 01/21/2025 09:51 AM Main OR Pathologist: Ladonna Larsen MD Specimen: Appendix, appendix 01/24/2025 4:08 PM [facility] Final Diagnosis Appendix, appendectomy: - Suppurative appendicitis with serositis 01/24/2025 4:08 PM [facility] at 1608 CDT Clinical Information Procedure: APPENDECTOMY, ROBOT-ASSISTED, LAPAROSCOPIC, USING DA MARK XI Pre-op Diagnosis: Appendicitis, unspecified appendicitis type [K37] Post-op Diagnosis: K37 - Appendicitis, unspecified appendicitis type [ICD-10-CM] 01/24/2025 4:08 PM [facility] Gross Description A(1). Appendix, appendix: Received [...] findings: The resection margin is inked blue Steel Burner sections are submitted in formalin as follows: A1-resection margin (inked blue), half of the distal tip and patient intake representative appendix cross sections. EDILSON Joyner(ASCP)CM 01/23/2025 8:43 AM 01/24/2025 4:08 PM [facility] Microscopic Description A formal microscopic examination has been performed 01/24/2025 4:08 PM [facility] Performing Labs The technical component of this testing was completed at [facility]. Stain controls for all stains resulted within this report have been reviewed and show appropriate reactivity. 01/24/2025 4:08 PM [facility] Case Images 01/24/2025 4:08 PM [facility] Tissue APPENDIX STRUCTURE / Unknown 01/21/2025 9:22 AM CDT 01/21/2025 9:51 AM T Cherelle Saravia MD LAB - BEAKER AP Final Result LABORATORY [facility] Acute Care Lab [address] 1[address] floor, [address] [place] [address], [place] [phone] LABORATORY [facility] [address] Lab (1st floor, no room number) [place] [address], [facility] * ANE AIRWAY ETT PERFORMABLE (01/21/2025 8:30 AM CDT) Narrative Joann Gonzalez APRN RN PALLIATIVE CARE - 01/21/2025 8:30 AM CDT Joann Gonzalez APRN RN PALLIATIVE CARE 01/21/2025 8:35 AM Airway Patient location during procedure: OR Procedure Start/Stop Times: 01/21/2025 8:30 AM Staff - RN PALLIATIVE CARE: Joann Gonzalez APRN CRNA Performed By: RN PALLIATIVE CARE Consent for Airway Urgency: elective Indications and [...] Administered Medication Administration Time: 01/21/2025 8:30 AM us Johnny Goldberg MD ME ANESTHESIA Final Result * CT Abdomen Pelvis [...] EXAM: CT ABDOMEN PELVIS W CONTRAST LOCATION: [facility] DATE: 01/21/2025 INDICATION: Abdominal pain, flank pain. [...] EXAM: CT ABDOMEN PELVIS W CONTRAST LOCATION: [facility] DATE: 01/21/2025 INDICATION: Abdominal pain, flank pain. [...] of acute diverticulitis. us Yazmin Lehman DO [facility] ORDERABLES Final Re sult * (ABNORMAL) UA with Microscopic reflex to Culture (01/21/2025 1:02 AM CDT) Color Urine Yellow Colorless, Straw, Light Yellow, Yellow 01/21/2025 1:21 AM CDT [facility] Appearance Urine Slightly Cloudy(A) Clear 01/21/2025 1:21 AM CDT [facility] Glucose Urine Negative Negative mg/dL 01/21/2025 1:21 AM CDT [facility] Bilirubin Urine Negative Negative 1:21 AM CDT [facility] Ketones Urine Trace(A) Negative mg/dL 01/21/2025 1:21 AM CDT [facility] Specific [place] Urine 1.026 1.003 - 1.035 01/21/2025 1:21 [...] None Seen /LPF 01/21/2025 1:21 AM CDT LABORATORY RBC Urine 4(H) <=2 /HPF 01/21/2025 1:21 AM CDT LABORATORY WBC Urine 19(H) <=5 /HPF 01/21/2025 1:21 AM CDT LABORATORY Squamous Epithelials Urine 3(H) <=1 /HPF 01/21/2025 1:21 AM CDT LABORATORY Urine MID-STREAM URINE SPECIMEN / Unknown Non-blood Collection / Unknown 01/21/2025 1:02 AM CDT 01/21/2025 1:07 AM CDT Narrative LABORATORY - 01/21/2025 1:21 AM CDT Urine Culture ordered based on laboratory criteria us Yazmin Lehman DO LAB - URINE ORDERABLES Fin al Result LABORATORY [facility] [address] [facility] Lab (1st floor, no room number) [place] [address], [facility] * (ABNORMAL) Urine Culture (01/21/2025 1:02 [...] ORDERA BLES Final Result [facility]U IDD LABORATORY [facility] Inf. Diseases Diag. Lab [address] [facility] [place] [address], [facility] * Extra Red Top Tube (01/21/2025 12:55 AM CDT) [facility] [address] Hold Specimen [facility] 01/21/2025 2:01 AM CDT LABORATORY Blood BLOOD SPECIMEN / Unknown Venipuncture / Unknown 01/21/2025 12:55 AM CDT 01/21/2025 12:59 AM CDT Yazmin Lehman DO LAB - BLOOD ORDERABLES Fin al Result LABORATORY [facility] [address] Lab (1st floor, no room number) [place] [address], [facility] * Extra Blue Top Tube (01/21/2025 12:55 AM CDT) Hold Specimen [facility] 01/21/2025 2:01 AM CDT LABORATORY Blood BLOOD SPECIMEN / Unknown Venipuncture / Unknown 01/21/2025 12:55 AM CDT 01/21/2025 12:59 AM CDT Yazmin Lehman DO LAB - BLOOD ORDERABLES Fin al Result [facility] [address] Lab (1st floor, no room number) [address] * Lipase (01/21/2025 12:55 AM CDT) Pathologist [facility] [place] Lipase 39 13 - 60 U/L 01/21/2025 1:32 AM CDT LABORATORY Blood BLOOD SPECIMEN / Unknown Venipuncture / Unknown 01/21/2025 12:55 AM CDT 01/21/2025 12:59 AM CDT Yazmin Lehman DO LAB - BLOOD ORDERABLES Fin al Result Performing Organization Address [facility] de Phone Number [facility] [address] Lab (1st floor, no room number) [address] * HCG QUALitative (blood) (01/21/2025 12:55 AM CDT) Pathologist [facility] [place] hCG Serum Qualitative Negative Negative ELIZA 01/21/2025 1:38 AM CDT LABORATORY Comment:This test is for scr eening purposes. Results should be interpreted along with the clinical picture. Confirmation testing is available if warranted by ordering [id number], HCG Quantitative . Blood BLOOD SPECIMEN / Unknown Venipuncture / Unknown 01/21/2025 12:55 AM CDT 01/21/2025 12:59 AM CDT Yazmin Lehman DO LAB - BLOOD ORDERABLES Fin al Result [facility] [address] [facility] Lab (1st floor, no room number) [place] [address], [facility] from Last 3 Months Insurance [place] [employer] [place] Advance Directives For more information, please contact: [phone] * Full Code (Latest Code Status on File) Date Activated Date Inactivated Comments 01/30/2025 4:46 AM 02/01/2025 3:06 PM All basic and advanced life-sustaining interventions are performed as appropriate Question Answer Comments Code status determined by: Discussion with alverto nt/ legal decision maker Care Teams Resident Services Coordinator Relationship Specialty Start Date End Date Chani Boudreaux PA-C [facility] [address] [place] [address] PCP - General Physician Veneer Layer 12/21/23 Marylu Doins [address] [facility] [place] [address] 03/09/16
--- OUTSIDE RECORDS SUMMARY | 2025-03-30 07:27 | XMS_ITS | Clinical Summary ---
Author Organization [facility] Address [address] [place] [address] Care Team Providers Care Supervisor Roving Department Name Role Phone Alvaro Bullock MD Unavailable [phone] Allergies Active Allergy Reactions Criticality Noted Date [...] 24 hours. 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 Not on file Not [...] Comments Blood Pressure 155/105 10/30/2020 9:30 AM FURNACE STOCK INSPECTOR Pulse 92 10/30/2020 9:30 AM FURNACE STOCK INSPECTOR Temperature 36.3 C (97.4 F) 10/30/2020 9:30 AM FURNACE STOCK INSPECTOR Respiratory Rate 18 10/30/2020 9:30 AM FURNACE STOCK INSPECTOR Oxygen Saturation 95% 10/30/2020 9:30 AM FURNACE STOCK INSPECTOR Inhaled Oxygen Concentration - - Weight 117.9 kg (260 lb) 10/30/2020 9:30 AM FURNACE STOCK INSPECTOR Height 172.7 cm (5' 8) 10/30/2020 9:30 AM FURNACE STOCK INSPECTOR Body Mass Index 39.53 10/30/2020 9:30 AM FURNACE STOCK INSPECTOR Plan of Treatment Health Maintenance Due Date [...] booster 02/08/2025 02/08/2015, 11/2012 (Completed outside of [facility]), 05/03/2013, Additional history exists Influenza Vaccine (#1) 2025 8, 05/25/2017, 05/09/2016, Additional history exists Pap test for age 21-65 07/28/2028 3, 07/28/2023, 02/12/2016, Additional history exists HIV for age 15-65 Completed 09/28/2014 Pneumococcal series for age 6-49 Aged Out 01/28/2017 No longer eligible based on patient's age to complete this topic Medical Devices Implanted Type Area Copier Operator Device Identifier Shelf Expiration Date Model / Serial / Lot Mesh Ventral 4.5in Ventralightst - [id number] Implanted:Qty: 1 on 08/04/2018 by Yony Kingston MD at [facility] N/A: Abdomen [employer] 03/26/2020 [id number] / / [id number] Procedures Procedure Name Priority Date/Time Associated Diagnosis Comments PROCESS IMPROVEMENT ENGINEER THIN PREP PAP SCREEN IMAGED Routine 07/28/2023 4:45 PM FURNACE STOCK INSPECTOR XR MAMMO TOMMIE BILAT DIAG Routine 05/25/2018 1:41 PM CDT Breast discharge LIPID PANEL W REFLEX MEASURED LDL Routine 02/07/2016 9:50 AM CDT Non morbid obesity, unspecified obesity type ANTI HIV 1/2 Routine 09/28/2014 2:34 PM FURNACE STOCK INSPECTOR Supervision of other normal (HC) from Last 3 Months or Most Recently Relevant to Health Maintenance Results * PROCESS IMPROVEMENT ENGINEER THIN PREP PAP SCREEN IMAGED (07/28/2023 4:45 PM FURNACE STOCK INSPECTOR) Case Report Gynecologic Cytology Report Case: [id number] Authorizing Provider: Chani Boudreaux PA-C Collected: 07/28/2023 1645 Ordering Location: [facility] Received: 08/02/2023 1140 First Screen: Jess Prakash Specimen: PROCESS IMPROVEMENT ENGINEER ThinPrep Vial Screening, Cervical 08/06/2023 5:10 PM FURNACE STOCK INSPECTOR [facility] INTERPRETATION/ RESULT NEGATIVE FOR INTRAEPITHELIAL LESION OR MALIGNANCY (NIL) (none) 08/06/2023 5:10 PM FURNACE STOCK INSPECTOR [facility] at [address] FURNACE STOCK INSPECTOR SPECIMEN ADEQUACY Satisfactory for evaluation Endocervical component present 08/06/2023 5:10 PM FURNACE STOCK INSPECTOR [facility] [employer] [facility] HPV REQUEST HPV and PAP 08/06/2023 5:10 PM FURNACE STOCK INSPECTOR [facility] [employer] [facility] Date of LMP 07/12/2022 08/06/2023 5:10 PM FURNACE STOCK INSPECTOR [facility] [employer] [facility] Last Pap Date 08/06/2023 5:10 PM FURNACE STOCK INSPECTOR [facility] [employer] [facility] Comment:unknown Additional Information 08/06/2023 5:10 PM FURNACE STOCK INSPECTOR [facility] [employer] [facility] Comment: Interpreted at [facility] [employer] [facility] - [address] [facility] [address], [place] [address] Automated Review Successful 08/06/2023 5:10 PM FURNACE STOCK INSPECTOR [facility] [employer] [facility] Comment:Specimen processed s uccessfully by automated block setter gypsum device, ThinPrep Imaging System, [employer] ANCILLARY TESTING PROCESS IMPROVEMENT ENGINEER HPV Ordered, Please see separate report 08/06/2023 5:10 PM FURNACE STOCK INSPECTOR [facility] [employer] [facility] Note The pap test is [...] pre-malignant and malignant lesions. 08/06/2023 5:10 PM FURNACE STOCK INSPECTOR [facility] EN[facility] Other (Cervical) 07/28/2023 4:45 PM FURNACE STOCK INSPECTOR 08/02/2023 11:40 AM FURNACE STOCK INSPECTOR us Chani Boudreaux PA-C PATHOLOGY/CYTOLOGY Final Res ult [facility] [address] [place] [address], [place] * XR MAMMO TOMMIE BILAT DIAG (05/25/2018 1:41 PM CDT) Anatomical Region Laterality Modality BREASTS, Breast Left, Breast Right Bilateral Mammography 05/25/2018 1:41 PM CDT Narrative 05/25/2018 4:14 PM CDT [facility] XR MAMMO TOMMIE BILAT DIAG, US [...] Procedure Note Carmela Callejas MD - 05/25/2018 [facility] XR MAMMO TOMMIE BILAT DIAG, US [...] who should resume annual screeningmammography. us Lisa Zapata Patel DO MAMMO Final Result * (ABNORMAL) LIPID PANEL W REFLEX MEASURED LDL (02/07/2016 9:50 AM CDT) CHOLESTEROL,TOTAL 200(H) 100 - 199 mg/dL 02/07/2016 2:45 PM CDT [facility] TRAL LABORATORY TRIGLYCERIDES 99 <150 mg/dL 02/07/2016 2:45 PM CDT [facility] HDL CHOLESTEROL 40(L) >40 mg/dL 02/07/2016 2:45 PM CDT [facility] NON-HDL CHOLESTEROL 160(H) <145 mg/dl 02/07/2016 2:45 PM CDT [facility] CHOL/HDL RATIO 5.00(H) <4.50 02/07/2016 2:45 PM CDT [facility] LDL CHOLESTEROL 140(H) <=130 mg/dL 02/07/2016 2:45 PM CDT [facility] PATIENT STATUS FASTING 02/07/2016 2:45 PM CDT [facility] Blood specimen (specimen) BLOOD SPECIMEN / Unknown Venipuncture / Unknown 02/07/2016 9:50 AM CDT 02/07/2016 9:50 AM CDT Cherry Cain MD CHEMISTRY F inal Result [facility] [address] [place] [address], * ANTI HIV 1/2 (09/28/2014 2:34 PM FURNACE STOCK INSPECTOR) HIV-1/HIV-2 ANTIBODY Non-Reacti ve Non-Reacti ve 09/29/2014 12:20 AM FURNACE STOCK INSPECTOR [facility] TR[facility] Blood specimen (specimen) BLOOD SPECIMEN / Unknown Venipuncture / Unknown 09/28/2014 2:34 PM FURNACE STOCK INSPECTOR 09/28/2014 2:34 PM FURNACE STOCK INSPECTOR Narrative [facility] - 09/29/2014 12:20 AM FURNACE STOCK INSPECTOR HIV-1 p24 and HIV-1/HIV-2 Ab not detected us Cherry Cain MD SEND OUTS F inal Result [facility]AL LAB[facility]ATORY [address] [place] [address], from Last 3 Months or Most Recently Relevant to Health Maintenance [facility] WC WORKERS COMP WC WORKERS COMP Advance [...] 2:29 PM 05/04/2015 9:42 AM Care Teams Supervisor Roving Department Relationship Specialty Start Date End Date Alvaro Bullock MD Consulting Physician Dermatology 10/26/14
[2025-03-30 07:32] VITALS: BP 139/92; PULSE 68; RESP 16; TEMP 36.2; O2SAT 94; BMI 40.3
--- NOTE | 2025-03-30 07:50 | ED_ITS ---
HPI - Headache General Chief Complaint: Headache/Migraine Stated Complaint: migraine History of Present Illness HPI Narrative: Patient is a 49-year-old woman with history of migraine headaches who presents with a headache that she is unable to get under control with Imitrex at home. She recently history Imitrex from 25-100 mg daily. She also had a episode of hepatic inflammation following use of nitro frantic tone which appears to be improving. She has no abdominal pain no jaundice. She has had some photophobia and nausea which is more typical for her headaches. Headache is diffuse and severe. It is sharp. Again the Imitrex is not been effective. Related Data Home Medications ?Medication ?Instructions ?Recorded ?Confirmed albuterol sulfate 90 mcg/actuation 2 inh inhalation [place] N 06/25/23 03/28/25 aerosol inhaler sumatriptan succinate 25 mg tablet 25 mg PO 06/25/23 0 03/28/25 calcium carbonate (Tums) 200 mg PO BID 08/27/2303/30 Previous Rx's ?Medication ?Instructions ?Recorded ipratropium 0.5 mg-albuterol 3 mg 1 ml inhalation QID #90 mL 06/25/23 (2.5 mg base)/3 mL nebulization soln ibuprofen 600 mg tablet 600 mg PO Q6H PRN Pain 14 da ys #30 09/15/23 tabs fluticasone propionate 230 2 puff inhalation BID #12 g erika 01/21/24 mcg-salmeterol 21 mcg/actuation HFA inhaler (Advair HFA) propranolol 80 mg capsule,24 80 mg PO QDAY #90 caps hr,extended release sumatriptan succinate 100 mg tablet See Rx Instruction s PO .COMPLEX #9 03/28/25 tabs Allergies Allergy/AdvReac Type Severity Reaction Status Date / Time bee venom protein (honey bee) Allergy Severe Verified 03/30/25 07:43 levofloxacin Allergy Severe tendon Verified 03/30/25 07:43 rupture morphine Allergy Severe Verified 03/30/25 07:43 amoxicillin Allergy Intermediate Hives Verified 03/30/25 07:43 nitrofurantoin Allergy Severe Uncoded 03/28/25 15:01 macrocrystal-monohydrate Review of Systems Status of ROS: Reports: 10 or more systems reviewed and unremarkable except as noted in History and below PFSH [facility] Medical History Cervical pain (neck) ?M54.2 - Cervicalgia (ICD-10) History of miscarriage ?Z87.59 - Personal history of other complications of , childbirth and the puerperium (ICD-10) History of squamous cell carcinoma ?Z85.89 - Personal history of malignant neoplasm of other organs and systems (ICD-10) Asthma ?J45.909 - Unspecified asthma, uncomplicated (ICD-10) Surgical History History of appendectomy (~12/2024) ?Z90.49 - Acquired absence of other specified parts of digestive tract (ICD- 10) History of esophagogastroduodenoscopy (EGD) (07/2023) ?Z98.890 - Other specified postprocedural states (ICD-10) History of tonsillectomy ?Z90.89 - Acquired absence of other organs (ICD-10) History of hernia repair ?Z98.890 - Other specified postprocedural states (ICD-10) ?Z87.19 - Personal history of other diseases of the digestive system (ICD-10) History of cholecystectomy ?Z90.49 - Acquired absence of other specified parts of digestive tract (ICD- 10) Family History Other Diabetes High blood pressure Lung cancer Melanoma Pancreatic cancer Throat cancer Social History Smoking Status: Former smoker What tobacco products do you use: cigarettes Smoking quit date/years: <= 15 years ago Do you use any of these nicotine containing products: None How often do you have a drink containing alcohol: monthly or less Alcohol type: beer How many standard drinks containing alcohol do you have on a typical day: 1 or 2 How often do you have six or more drinks on one occasion: Never AUDIT-C Alcohol total score: 1 Non-prescribed substance use: denies use Caffeine: Yes (1-3 cups of coffee per day) Are you using contraception or practicing any form of control: Yes (Abstence) Exam Narrative: Exam Narrative: EXAM GENERAL: Patient appears comfortable and well. EYES: No scleral icterus. LYMPH: No supraclavicular or cervical lymphadenopathy. SKIN: Visible skin seen during exam normal or with benign process only. EXT: No dependent lower extremity pedal edema. HEART: Regular rate and rhythm with no murmurs, rubs, or gallops. LUNGS: Clear to auscultation bilaterally with no crackles or wheezes. ABD: Soft, non tender, non distended. PSYCH: Good eye contact, speech is not pressured. Const: Vital Signs, click to edit/add: Vital Signs - 24 hr 03/30/25 07:32 Temperature 97.2 F L Pulse Rate [Pulse Oximeter] 68 Respiratory Rate 16 Blood Pressure [[facility] Upper Arm] 139/92 H Pulse Oximetry 94 Oxygen Delivery Me thod Room Air Course Course ED Course: Patient seen and examined. 1 L of normal saline 30 mg of Toradol 4 mg of Zofran and 25 mg Benadryl given. Will have my colleague follow-up with her after shift change but likely be able to discharge home with outpatient follow-up. Vital Signs Vital signs: Initial Vital Signs Temperature 97.2 F L 03/30/25 07:32 Temperature Source Temporal Artery Scan 03/30/25 07:32 Pulse Rate 68 03/30/25 07:32 Respiratory Rate 16 03/30/25 07:32 Blood Pressure 139/92 H 03/30/25 07:32 Blood Pressure Mean 107 H 03/30/25 07:32 Blood Pressure Position Sitting 03/30/25 07:32 Pulse Oximetry 94 03/30/25 07:32 Oxygen Delivery Method Room Air 03/30/25 07:32 Vital Signs Temperature 97.2 F L 03/30/25 07:32 Pulse Rate 68 03/30/25 07:32 Respiratory Rate 16 03/30/25 07:32 Blood Pressure 139/92 H 03/30/25 07:32 Pulse Oximetry 94 03/30/25 07:32 Oxygen Delivery Method Room Air 03/30/25 07:32 Temperature 97.2 F L 03/30/25 07:32 Pulse Rate 68 03/30/25 07:32 Respiratory Rate 16 03/30/25 07:32 Blood Pressure 139/92 H 03/30/25 07:32 Pulse Oximetry 94 03/30/25 07:32 Oxygen Delivery Method Room Air 03/30/25 07:32 Discharge Plan Discharge Clinical Impression: Migraines Qualifiers: Migraine type: unspecified Status migrainosus presence: without status migrainosus Intractability: not intractable Qualified Code(s): G43.909 - Migraine, unspecified, not intractable, without status migrainosus Patient Disposition: Home, Self-Care Condition: Stable Instructions: Migraine Headache (ED) Additional Instructions: Continue current medications Follow-up with your doctor as needed Activity Level: No Restrictions Discharge Diet: Regular Prescriptions: No Action calcium carbonate [Tums] 200 mg calcium (500 mg) tablet,chewable 200 mg PO BID propranolol 80 mg capsule,extended release 24 hr 80 mg PO QDAY Qty: 90 0RF Patient Comments: new medication to start today sumatriptan succinate 100 mg tablet See Rx Instructions PO .COMPLEX Qty: 9 0RF Rx Instructions: take 1 tab at onset of headache; if no relief, may repeat 1 tab after at least 2 hrs; max = 2 tabs/24 hrs PO sumatriptan succinate 25 mg tablet 25 mg PO albuterol sulfate 90 mcg/actuation HFA aerosol inhaler 2 inh inhalation PRN ipratropium-albuterol 0.5 mg-3 mg(2.5 mg base)/3 mL solution for nebulization 1 ml inhalation QID Qty: 90 2RF ibuprofen 600 mg Tablet 600 mg PO Q6H PRN (Reason: Pain) 14 Days Qty: 30 0RF fluticasone propion-salmeterol [Advair HFA] 230-21 mcg/actuation HFA aerosol inhaler 2 puff inhalation BID Qty: 12 3RF Rx Instructions: 2 puffs twice daily Follow Up/Referrals: Chani Boudreaux PA-C [Primary Care Provider, Family Practice] Stand Alone Forms: [employer] Info Instructions
[2025-03-30] MEDS: ONDANSETRON 2 MG/ML inj 4 MG IVP (08:08)
[2025-03-30 09:52] VITALS: BP 135/83; PULSE 74; RESP 16; O2SAT 97
== END 2025-03-30 09:54 | disposition home or self-care (01) ==
PROVIDERS: Emergency Provider Internal Medicine; PCP Physician Assistant Medical
DX: G43.909 Migraine, unspecified, not intractable, without status migrainosus (principal)
CPT/HCPCS: 96374; 96375; 99283; J1200; J1885; J2405; J7030

== ENCOUNTER 2025-04-16 08:57 | Outpatient (CLI) | payer BC, SELFPAY ==
--- NOTE | 2025-04-16 09:15 | CRLHL7_ITS ---
For Patients: As a result of the Century Cures Act, medical imaging exams and procedure reports are released immediately into your electronic medical record. You may view this report before your referring provider. If you have questions, please contact your health care provider. INDICATION: Flank pain left TECHNIQUE: Ultrasound renal bilateral. Mustafa-scale and color Doppler sonographic images were acquired of the kidneys and urinary bladder. COMPARISON: FINDINGS: Right kidney: 11.1 cm. Left kidney: 11.6 cm. Normal echotexture and cortex. No masses, stones, or hydronephrosis. Bladder: The bladder is unremarkable. The volume is 50 cc with a 2 cc postvoid residual. Color Doppler images demonstrate bilateral ureteral jets. IMPRESSION: : Unremarkable renal and bladder ultrasound evaluation. Dictated by Michael Figueroa MD @ 04/17/2025 2:04:20 PM (Electronically Signed)
== END 2025-04-16 08:58 | disposition home or self-care (01) ==
LOC: US 08:58
PROVIDERS: PCP Physician Assistant Medical; Visit Provider Physician Assistant
DX: R10.9 Unspecified abdominal pain (principal)
CPT/HCPCS: 76770

== ENCOUNTER 2025-05-06 15:59 | Emergency (ER) | payer BC, SELFPAY ==
--- OUTSIDE RECORDS SUMMARY | 2025-02-09 06:30 | XMS_ITS | Continuity of Care Document ---
Author Organization [facility] Address [address] [address] [place] [address] Phone Care Team Providers Care Manager Ob Name Role Phone Calixto Nunez MD, Mir Unavailable Unavailabl e Allergies, Adverse Reactions, Alerts Substance Reaction Status Criticality adhesive tape REDNESS Active No Information AMOXICILLIN TRIHYDRATE Hives Active No In formation levofloxacin Ankle swelling Active No Informatio n DEXTROSE 5 % IN WATER Ankle swelling Active No I nformation morphine Chest Pain Active No Information WARNIN allergy(ies) could not be collected because the type is not supported. Please contact the source practice for further details. Medications Medication Instructions Dosage Effective Dates (start - stop) Status Comments meclizine 25 mg Tab as needed - Active Levora 0.15/30 (28) 0.15 mg-30 mcg Tab Take one tablet by mouth daily - Active doxycycline hyclate 100 mg Tab Take one tablet by mouth two times per day X 14 DAYS - Active Prilosec OTC 20 mg Tab Take one tablet by mouth daily - Active Vicodin 5 mg-500 mg Tab as needed - Active Procedures Procedure Date Colonoscopy Flex; W/bx 1/mx Ugi Endo; W/bx 1/mx Level Iv-surg Path Gross/micro 10 Offic Cons New/estab Mod G8447 Advance Directives Directive Yes / No Effective Date File Name No Information Encounters Encounter Description Practice Location Reason(s) For Visit Diagnoses Date Provider Providers Copied on Encounter [facility], [address] [address], [place], [id number], [place] tel:[phone] [facility] No Information 5 Calixto Hester. [address] [facility], [facility] [address], [place], [id number] , [place]. tel: [phone] [facility], [address] [address], [place], [id number], [place] tel:[phone] [facility] DiarrheaHiatal HerniaGastroesophag eal RefluxDiarrheaHiata l HerniaGastroesophag eal Reflux 7-201 0 Johann Ceron. [address] [facility], [facility] [address], [place], [id number] , [place]. tel: [phone] Offic Cons New/estab Mod [facility], [address] [address], [place], [id number], [place] tel:[phone] [facility] Diarrhea (chief complaint) GERD (chief complaint) Gastroesophageal RefluxDiarrhea 4-201 0 Johann Ceron. [address] [facility], [facility] [address], [place], [id number] , [place]. tel: [phone] Family History Family Member Type Diagnosis Age At Onset Maternal uncle Problem (finding) cancer of colon First degree family history Problem (finding) No history of Cancer, colon First degree family history Problem (finding) Thyroid Disorder Paternal grandmother Problem (finding) Colon Polyps First degree family history Problem (finding) peptic ulceration First degree family history Problem (finding) No Family history of No history of Colon Polyps First degree family history Problem (finding) No history of Ulcerative Colitis First degree family history Problem (finding) Cholelithasis First degree family history Problem (finding) No history of Crohn's First degree family history Problem (finding) GERD Payers Payer name Insurance type Covered constitution party ID Authoriza tion(s) No Information Social History Type Description Quantity Date Captured Comments Sex Female Smoking Status No Information Chief Complaint And Reason For Visit No Information Reason For Referral Reason For Referral No Information History Of Present Illness Encounter Date Complaint History Of Prese nt Illness No Information Functional Status Date Functional Assessmen t No Information Instructions Date Instruction Additional Infor mation No Information Assessments Type Assessment Date No Information Patient Care Teams Name Effective Dates (start - stop) Status Members No Information
--- OUTSIDE RECORDS SUMMARY | 2025-02-09 06:30 | XMS_ITS | Continuity of Care Document ---
Author Organization [facility] Address [address] [address] [place] [address] Phone Care Team Providers Care Bag Sewer Name Role Phone Calixto Nunez MD, Mir [...] Diagnoses Date Provider Providers Copied on Encounter [facility], [address] [address], [place], [id number], [place] tel:[phone] [facility] No Information 5 Calixto Hester. [address] [facility], [facility] [address], [place], [id number] , [place]. tel: [phone] [facility], [address] [address], [place], [id number], [place] tel:[phone] [facility] DiarrheaHiatal HerniaGastroesophag eal RefluxDiarrheaHiata l HerniaGastroesophag eal Reflux 7-201 0 Johann Ceron. [address] [facility], [facility] [address], [place], [id number] , [place]. tel: [phone] Offic Cons New/estab Mod [facility], [address] [address], [place], [id number], [place] tel:[phone] [facility] Diarrhea (chief complaint) GERD (chief complaint) Gastroesophageal RefluxDiarrhea 4-201 0 Johann Ceron. [address] [facility], [facility] [address], [place], [id number] , [place]. tel: [phone] Family History Family Member Type Diagnosis Age [...] GERD Payers Payer name Insurance type Covered libertarian ID Authoriza tion(s) No Information Social History [...]
--- OUTSIDE RECORDS SUMMARY | 2025-04-18 15:51 | XMS_ITS | Continuity of Care Document ---
Author Organization [facility] Address [address] [address] [place] [address] Phone Care Team Providers Care Diesel Stationary Engineer Name Role Phone Jimmy MELVINTerese Unavailable Unavailabl e Allergies, Adverse Reactions, Alerts Substance Reaction Status Criticality adhesive tape Unknown Active No Information adhesive tape Difficulty breathing Active No Inf ormation adhesive tape Traumatic or non-traumatic rupture of te ndon Active No Information adhesive tape HivesHivesSwelling Active No Infor mation adhesive tape HivesHives Active No Information Medications Medication Instructions Dosage Effective Dates (start - stop) Status Comments IBUPROFEN (unknown strength) take 1 tablet by oral route 3 times every day with food as needed Not Available - Active albuterol sulfate HFA 90 mcg/actuation aerosol inhaler inhale 2 puff by inhalation route every 4 - 6 hours as needed 180 MCG - Active propranolol 80 mg tablet take 1 tablet by oral route every 2 days 80 MG - Active sumatriptan 100 mg tablet take 1 tablet by oral route after onset of migraine; may repeat after 2 hours if headache returns,not to exceed 200mg in 24hrs 100 MG - Active Tums 200 mg (as calcium carbonate 500 mg) chewable tablet take 1 tablet by oral route every day prn as needed 1 tablet - Active Procedures Procedure Date Routine Serum Collection Offic/outpt E&m Estab Moderate Routine Serum Collection Subsqt Inpt Moderate Inpt Cons Moderate Advance Directives Directive Yes / No Effective Date File Name No Information Encounters Encounter Description Practice Location Reason(s) For Visit Diagnoses Date Provider Providers Copied on Encounter [facility], [address] [address], [place], [place], [address], [place] tel:[phone] [facility] No Information 5 Jimmy Gudino . [address] [facility] [address], [place], [place], [address] , [place]. tel: [phone] [facility], [address] [address], [place], [address], [place] tel:[phone] [facility] Other specified abnormal findings of blood chemistry 5 Jimmy Gudino . [address], [place], [place], [address] , [place]. tel: [phone] Referring Provider: Referral Self, USE FOR SELF REFERRALS. [facility], [address] [address], [place], [place], [address], [place] tel:[phone] [facility] No Information 5 Jimmy Gudino . [address], [place], [address] , [place]. tel: [phone] [facility], [address] [address], [place], [place], [address], [place] tel:[phone] [facility] Elevated LFTs 5 Jimmy Gudino . [address], [place], [place], [address] , [place]. tel: [phone] Offic/outpt E&m Estab Moderate [facility], [address] [address], [place], [place], [address], [place] tel:[phone] [facility] GI Symptoms or Concerns (chief complaint) Left flank painGross hematuriaElevated LFTsDietary counseling and surveillanceElevate d blood-pressure reading, without diagnosis of hypertension 5 Jimmy Gudino . [address], [place], [place], [address] , [place]. tel: [phone] Referring Provider: Referral Self, USE FOR SELF REFERRALS. [facility], [address] [address], [place], [id number], [place] tel:[phone] [facility] No Information 5 Calixto Hester. [address] [facility], [address], [place], [id number] , [place]. tel: [phone] Subsqt Inpt Moderate [facility], [address] [address], [place], [id number], [place] tel:[phone] [facility] No Information Edstrom [facility] Niño. [address] [facility], [address], [place], [id number] , [place]. tel:[phone] Referring Provider: Chani Boudreaux [facility], [address] [place], [address]. tel:[phone] Inpt Cons Moderate [facility], [address] [address], [place], [address], [place] tel:[phone] [facility] No Information Gilmar Real. [address] [facility], [address], [place], [id number] , [place]. tel:[phone] Referring Provider: Chani CHARLES, [address] [place], [address]. tel:[phone] Family History Family Member Type Diagnosis Age At Onset Father Problem Ulcer disease Problem Family history of Alcoholism Mother Problem Kidney disease (Cause Of Juliet ) Mother Problem Pancreatitis Father Problem Pre-diabetes Mother Problem Ulcer disease Problem Family history of Cancer, li stephan Mother Problem Thyroid disorder Mother Problem Diabetes mellitus Father Problem Melanoma Mother Problem Gallbladder disease Immunizations Vaccine Date Status Comments tetanus toxoid, reduced diphtheria toxoid, and acellular pertussis vaccine, adsorbed administered Note: SOHAM nguyễn i-directional interface ; Source: Other Registry Afluria Qd administered Note: [facility] bi-directional interface ; Source: Other Registry SARS-COV-2 (COVID-19) vaccin e, vector non-replicating, recombinant spike protein-Ad26, preservative free, 0.5 mL administered Note: [facility] bi- directional interface ; Source: Other Registry Afluria Qd administered Note: [facility] bi-directional interface ; Source: Other Registry influenza virus vaccine, unspecified formulation administered Note: [facility] bi-di rectional interface ; Source: Other Registry Pneumovax 23 administered Note: [facility] bi-d irectional interface ; Source: Other Registry influenza virus vaccine, unspecified formulation administered Note: [facility] bi-di rectional interface ; Source: Other Registry tetanus toxoid, reduced diphtheria toxoid, and acellular pertussis vaccine, adsorbed administered Note: [facility] b i-directional interface ; Source: Other Registry Afluria Qd administered Note: [facility] bi-directional interface ; Source: Other Registry Influenza, split virus, trivalent, injectable, contains preservative administered Note: [facility] bi-direct ional interface ; Source: Other Registry tetanus toxoid, reduced diphtheria toxoid, and acellular pertussis vaccine, adsorbed administered Note: [facility] b i-directional interface ; Source: Other Registry tetanus toxoid, reduced diphtheria toxoid, and acellular pertussis vaccine, adsorbed administered Note: [facility] b i-directional interface ; Source: Other Registry Influenza, split virus, trivalent, injectable, contains preservative administered Note: [facility] bi-direct ional interface ; Source: Other Registry Engerix-B administered Note: [facility] bi-d irectional interface ; Source: Other Registry Engerix-B administered Note: [facility] bi-d irectional interface ; Source: Other Registry Engerix-B administered Note: [facility] bi-d irectional interface ; Source: Other Registry diphtheria and tetanus toxoi ds, adsorbed for pediatric use administered Note: [facility] bi -directional interface ; Source: Other Registry Payers Payer name Insurance type Covered constitution party ID Malaika jones(s) [employer] [place] [id number] Social History Type Description Quantity Date Captured Comments Alcohol Use Details Unknown Caffeine Use Details Unknown Tobacco Use Status No Information Smoking Status No Information Sex Female Chief Complaint And Reason For Visit No Information Reason For Referral Reason For Referral No Information Plan Of Treatment Date Type Action Status Goal Lifestyle education regardin g diet completed Referral Ordered: Hepatic Function Panel Appointment date/timeframe: 04/13/2025 ordered Appointment Maude Rivera BOOKED History Of Present Illness Encounter Date Complaint History Of Prese nt Illness GI Symptoms or Concerns Maude porras is a 49-year-old female seen today for concern of elevated liver enzymes.Patient was previously seen as an inpatient consultation for elevated liver enzymes at [facility] on 01/31/2025 after presenting with persistent abdominal pain.Labs on 02-21 had noted an AST of 308 ALT 388 alkaline phosphatase 197 and total bilirubin of 0.7. R epeat labs on 01/31/2025 noted an AST of 205 ALT 472 and alkaline phosphatase 208 total bilirubin 0.4. P atient was also noted to be thrombocytopenic with a platelet count of 103. O f note, patient had reported taking ibuprofen 600 mg alternating with acetaminophen with an estimated acetaminophen dose of 3 to 4000 mg a day along with oxycodone at night. S he had also been on nitrofurantoin between the time of her appendectomy and hospital admission. CT scan of the abdomen and pelvis on 01/29/2025 noted evidence of appendectomy without any abscess pleural fluid or other acute abnormality. Evidence of prior cholecystectomy was noted.Past medical history is notable for asthma, depression, recent appendectomy.Subsequent serological workup revealed negative acute hepatitis panel borderline positive CARLOS at a titer of 1: 40 and an elevated ferritin of 493 but normal iron/TIBC. ?Labs prior to discharge from the hospital revealed a total bilirubin of 0.4 ALT 394 AST not obtained due to hemolysis and alkaline phosphatase 217.Today, patient reports there is 1 time in the past around 2009 where she was told her liver numbers were off but nobody was super concerned about this and this was never brought up again to her. She reports rare consumption of alcohol-4 times per year-no history of more substantial consumption since she was in her 20s. She has no history of tattoos, blood transfusions or recreational drug use. She was previously on some supplements while she was on the [employer] plan for weight loss between 2022 and 2023. She had again restarted about 6 months ago but was only on this for about 1.5 months before she discontinued.She had repeat labs done with her PCP 02/09 which revealed unremarkable CBC, CMP with normalization of alk phos and AST with mild elevation of ALT in the 60s. Her pain had substantially improved but in recent weeks she has noted recurrence of left-sided flank pain radiating to the front lasting between 30 seconds and 1 minute. She also noted blood in her urine and has had some chills but denies any fevers. She notes some decreased appetite but denies any nausea or vomiting. She was having constipation previously but since last Wednesday has been having more regular bowel movements that are more of a frosting consistency. She reports her stomach had been feeling more swollen but today is feeling softer.She has recently been having issues with migraines as well-she saw her primary care provider yesterday and was prescribed propranolol but was advised to follow-up with our office before starting. She has continued to take ibuprofen regularly as well-3 tablets 3 times daily. She has largely been avoiding acetaminophen although she does report she did take 1 Advil duo about 3 weeks ago.She denies any known family history of liver disease. She reports there is some concern that her maternal grandmother had either thyroid or liver cancer but she has not been able to clarify this. Also reports her mother had a history of ulcers requiring exploratory surgery in the .LIVER [id number]/03/25 A cute Hepatitis Panel-negativeCK- wnl02/01/24IgG W NLANA-borderline positive Functional Status Date Functional Assessmen t No Information Instructions Date Instruction Additional Infor ashleigh Lifestyle education regarding di et Related to Dietary counseling and surveillance Assessments Type Assessment Date No Information Patient Care Teams Name Effective Dates (start - stop) Status Members No Information
--- OUTSIDE RECORDS SUMMARY | 2025-04-18 15:51 | XMS_ITS | Continuity of Care Document ---
Author Organization [facility] Address [address] [address] [place] [address] Phone Care Team Providers Care Nutrition Representative Name Role Phone Jimmy MELVINTerese Unavailable Unavailabl [...] Encounter [facility], [address] [address], [place], [place], [address], [place] tel:[phone] [facility] No Information 5 Jimmy Gudino . [address] [facility] [address], [place], [place], [address] , [place]. tel: [phone] [facility], [address] [address], [place], [address], [place] tel:[phone] [facility] Other specified abnormal findings of blood chemistry 5 Jimmy Gudino . [address] [facility] [address], [place], [place], [address] , [place]. tel: [phone] Referring Provider: Referral Self, USE FOR SELF REFERRALS. [facility], [address] [address], [place], [place], [address], [place] tel:[phone] [facility] No Information 5 Jimmy Gudino . [address] [facility] [address], [place], [place], [address] , [place]. tel: [phone] [facility], [address] [address], [place], [place], [address], [place] tel:[phone] [facility] Elevated LFTs 5 Jimmy Gudino . [address] [facility] [address], [place], [place], [address] , [place]. tel: [phone] Offic/outpt E&m Estab Moderate [facility], [address] [address], [place], [address], [place] tel:[phone] [facility] GI Symptoms or Concerns (chief complaint) Left flank painGross hematuriaElevated LFTsDietary counseling and surveillanceElevate d blood-pressure reading, without diagnosis of hypertension 5 Jimmy Gudino . [address] [facility] [address], [place], [place], [address] , [place]. tel: [phone] Referring Provider: Referral Self, USE FOR SELF REFERRALS. [facility], [address] [address], [place], [id number], [place] tel:[phone] [facility] No Information 5 Calixto Hester. [address] [facility], [place], [id number] , [place]. tel: [phone] Subsqt Inpt Moderate [facility], [address] [address], [place], [id number], [place] tel:[phone] [facility] No Information Edstrom [facility] Niño. [address] [facility], [address], [place], [id number] , [place]. [phone] Referring Provider: Chani Boudreaux [facility], [address] [place], [address]. tel:[phone] Inpt Cons Moderate [facility], [address] [address], [place], [address], [place] tel:[phone] [facility] No Information Gilmar Real. [address] [facility], [address], [place], [address] , [place]. tel:[phone] Referring Provider: Chani CHARLES, [address] [place], [address]. tel:[phone] Family History Family Member Type Diagnosis Age [...] Registry Payers Payer name Insurance type Covered green party ID Malaika jones(s) [employer] [place] [id number] Social History Type Description Quantity Date Captured [...] Panel Appointment date/timeframe: 04/13/2025 ordered Appointment Maude Rievra BOOKED History Of Present Illness Encounter Date Complaint History Of Prese nt Illness GI Symptoms or Concerns Maude porras is a 49-year-old female seen today for concern of elevated liver enzymes.Patient was previously seen as an inpatient consultation for elevated liver enzymes at [facility] on 01/31/2025 after presenting with persistent [...] ulcers requiring exploratory surgery in the .LIVER ZMTUREQMOW01/03/25 A cute Hepatitis Panel-negativeCK- wnl02/01/24IgG W NLANA-borderline positive Functional Status Date Functional Assessmen t No Information Instructions Date Instruction Additional Infor ashleigh Lifestyle education regarding di et Related to Dietary counseling and surveillance Assessments Type Assessment Date No Information Patient Care Teams Name Effective Dates (start - stop) Status Members No Information
[2025-05-06] VITALS (10 sets, daily range): BP systolic 130–153; BP diastolic 76–92; PULSE 48–90; RESP 18; TEMP 36.8; O2SAT 96–97; BMI 41.8
--- OUTSIDE RECORDS SUMMARY | 2025-05-06 16:02 | XMS_ITS | Clinical Summary ---
Author Organization [facility] Address [address] [place] [address] Care Team Providers Care Contaminated Land Consultant Name Role Phone Alvaro Bullock MD Unavailable Allergies Active Allergy Reactions Criticality Noted Date [...] 24 hours. 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 file Not on file Not [...] Comments Blood Pressure 155/105 10/30/2020 9:30 AM LINING FELLER Pulse 92 10/30/2020 9:30 AM LINING FELLER Temperature 36.3 C (97.4 F) 10/30/2020 9:30 AM LINING FELLER Respiratory Rate 18 10/30/2020 9:30 AM LINING FELLER Oxygen Saturation 95% 10/30/2020 9:30 AM LINING FELLER Inhaled Oxygen Concentration - - Weight 117.9 kg (260 lb) 10/30/2020 9:30 AM LINING FELLER Height 172.7 cm (5' 8) 10/30/2020 9:30 AM LINING FELLER Body Mass Index 39.53 10/30/2020 9:30 AM LINING FELLER Plan of Treatment Health Maintenance Due Date [...] Mammogram for age 45-75 2021 05/25/2018, 12/07 Tetanus booster 02/08/2025 02/08/2015, 11/2012 (Completed outside of [facility]), 05/03/2013, Additional history exists COVID-19 vaccine series ( - 2023- season) 2025 Influenza Vaccine (#1) 2025 8, 05/25/2017, 05/09/2016, Additional history exists Pap test for age 21-65 07/28/2028 3, 07/28/2023, 02/12/2016, Additional history exists RSV vaccine for adults or (1 - 1-dose 75+ series) 2051 HIV for age 15-65 Completed 09/28/2014 Pneumococcal series for age 6-49 Aged Out 01/28/2017 No longer eligible based on patient's age to complete this topic Medical Devices Implanted Type Area School Guidance Counselor Device Identifier Shelf Expiration Date Model / Serial / Lot Mesh Ventral 4.5in Ventralightst - [id number] Implanted:Qty: 1 on 08/04/2018 by Yony Kingston MD at [facility] N/A: Abdomen [employer] 03/26/2020 [id number] / / [id number] Procedures Procedure Name Priority Date/Time Associated Diagnosis Comments TELEVISION HOST THIN PREP PAP SCREEN IMAGED Routine 07/28/2023 4:45 PM LINING FELLER XR MAMMO TOMMIE BILAT DIAG Routine 05/25/2018 1:41 PM CDT Breast discharge LIPID PANEL W REFLEX MEASURED LDL Routine 02/07/2016 9:50 AM CDT Non morbid obesity, unspecified obesity type ANTI HIV 1/2 Routine 09/28/2014 2:34 PM LINING FELLER Supervision of other normal (HC) from Last 3 Months or Most Recently Relevant to Health Maintenance Results * TELEVISION HOST THIN PREP PAP SCREEN IMAGED (07/28/2023 4:45 PM LINING FELLER) Case Report Gynecologic Cytology Report Case: [id number] Authorizing Provider: Chani Boudreaux PA-C Collected: 07/28/2023 1645 Ordering Location: [facility] Received: 08/02/2023 1140 First Screen: Jess Prakash Specimen: TELEVISION HOST ThinPrep Vial Screening, Cervical 08/06/2023 5:10 PM LINING FELLER [facility] INTERPRETATION/ RESULT NEGATIVE FOR INTRAEPITHELIAL LESION OR MALIGNANCY (NIL) (none) 08/06/2023 5:10 PM LINING FELLER [facility] at [address] SPECIMEN ADEQUACY Satisfactory for evaluation Endocervical component present 08/06/2023 5:10 PM LINING FELLER [facility] HPV REQUEST HPV and PAP 08/06/2023 5:10 PM LINING FELLER [facility] Date of LMP 07/12/2022 08/06/2023 5:10 PM LINING FELLER [facility] Last Pap Date 08/06/2023 5:10 PM LINING FELLER [facility] Comment:unknown Additional Information 08/06/2023 5:10 PM LINING FELLER [facility] Comment: Interpreted at [facility] - [address], [place] [address] Automated Review Successful 08/06/2023 5:10 PM LINING FELLER [facility] Comment:Specimen processed s uccessfully by automated senior technical writer device, ThinPrep Imaging System, [employer] ANCILLARY TESTING TELEVISION HOST HPV Ordered, Please see separate report 08/06/2023 5:10 PM LINING FELLER [facility] Note The pap test is [...] pre-malignant and malignant lesions. 08/06/2023 5:10 PM LINING FELLER [facility] LABORAT[facility]-C ENTRAL LABORATORY Other (Cervical) 07/28/2023 4:45 PM LINING FELLER 08/02/2023 11:40 AM LINING FELLER us Chani Boudreaux PA-C PATHOLOGY/CYTOLOGY Final Res ult [facility]ENTRAL LABORATORY [address] [place] [address], [place] * XR MAMMO TOMMIE BILAT DIAG (05/25/2018 1:41 PM CDT) Anatomical Region Laterality Modality BREASTS, Breast Left, Breast Right Bilateral Mammography 05/25/2018 1:41 PM CDT Narrative 05/25/2018 4:[address] [facility] XR MAMMO TOMMIE BILAT DIAG, US [...] Procedure Note Carmela Callejas MD - 05/25/2018 [facility] XR MAMMO TOMMIE BILAT DIAG, US [...] - 199 mg/dL 02/07/2016 2:45 PM CDT [facility] TRAL LABORATORY TRIGLYCERIDES 99 <150 mg/dL 02/07/2016 2:45 PM CDT [facility] HDL CHOLESTEROL 40(L) >40 mg/dL 02/07/2016 2:45 PM CDT [facility] NON-HDL CHOLESTEROL 160(H) <145 mg/dl 02/07/2016 2:45 PM CDT [facility] CHOL/HDL RATIO 5.00(H) <4.50 02/07/2016 2:45 PM CDT [facility] LDL CHOLESTEROL 140(H) <=130 mg/dL 02/07/2016 2:45 PM CDT [facility] PATIENT STATUS FASTING 02/07/2016 2:45 PM CDT [facility] Blood specimen (specimen) BLOOD SPECIMEN / Unknown Venipuncture / Unknown 02/07/2016 9:50 AM CDT 02/07/2016 9:50 AM CDT Cherry Cain MD CHEMISTRY F inal Result [facility] [address] [place] [address], * ANTI HIV 1/2 (09/28/2014 2:34 PM LINING FELLER) HIV-1/HIV-2 ANTIBODY Non-Reacti ve Non-Reacti ve 09/29/2014 12:20 AM LINING FELLER [facility] Blood specimen (specimen) BLOOD SPECIMEN / Unknown Venipuncture / Unknown 09/28/2014 2:34 PM LINING FELLER 09/28/2014 2:34 PM LINING FELLER Narrative [facility] - 09/29/2014 12:20 AM LINING FELLER HIV-1 p24 and HIV-1/HIV-2 Ab not detected us Cherry Cain MD SEND OUTS F inal Result [facility] [address] [place] [address], [place] from Last 3 Months or Most Recently Relevant to Health Maintenance Insurance [facility] WC WORKERS COMP WC WORKERS COMP Advance [...] 2:29 PM 05/04/2015 9:42 AM Care Teams Contaminated Land Consultant Relationship Specialty Start Date End Date Alvaro Bullock MD Consulting Physician Dermatology 10/26/14
--- OUTSIDE RECORDS SUMMARY | 2025-05-06 16:02 | XMS_ITS | Clinical Summary ---
Author Organization [facility] Address [address] [place] [address] Care Team Providers Care Advertising Assistant Name Role Phone Clinic, Marylu Sargent Unavailable [phone] Chani Boudreaux PA-C Primary Care Provider Allergies [...] 12/29 Sprain of lumbar region 11/05/2010 11/05/2010 Family [...] Answer Date Recorded Do you have housing? (Fauziaingrid g is defined as stable permanent housing [...] on file Legal Sex Female 3:38 AM DECORATING INSPECTOR Gender Identity Not on file Sexual [...] 1995 LIPID 2016 MAMMO SCREENING 05/25/2020 05/25/2018 PHQ-2 (once per calendar year) 2024 COVID-19 VACCINE (2 - season) 2025 11/04/2020 INFLUENZA VACCINE (#1) 2025 , 05/08/2021, 05/24/2018, [...] METABOLIC PANEL STAT 02/01/2025 7:53 AM CDT HEPATITIS C ANTIBODY Routine 01/31/2025 1:37 PM CDT from Last 3 Months or Most Recently Relevant to Health Maintenance Results * (ABNORMAL) Comprehensive metabolic panel (02/01/2025 7:53 AM CDT) Sodium 140 135 - 145 mmol/L 02/01/2025 8:46 AM CDT [facility] Potassium 4.2 3.4 - 5.3 mmol/L 02/01/2025 8:46 AM CDT [facility] Carbon Dioxide (CO2) 28 22 - 29 mmol/L 02/01/2025 8:46 AM CDT [facility] Anion Gap 9 7 - 15 mmol/L 02/01/2025 8:46 AM CDT [facility] Urea Nitrogen 12.2 6.0 - 20.0 mg/dL 02/01/2025 8:46 AM CDT LABORATORY Creatinine 0.44(L) 0.51 - 0.95 mg/dL 02/01/2025 8:46 AM CDT LABORATORY GFR Estimate >90 >60 mL/min/1.7 3m2 02/01/2025 8:46 AM CDT LABORATORY Comment:eGFR calculated usin 2020 CKD-EPI equation. Calcium 8.8 8.8 - 10.4 mg/dL 02/01/2025 8:46 AM CDT LABORATORY Chloride 103 98 - 107 mmol/L 02/01/2025 8:46 AM CDT LABORATORY Glucose 101(H) 70 - 99 mg/dL 02/01/2025 8:46 AM CDT LABORATORY Alkaline Phosphatase 217(H) 40 - 150 [...] LAB - BLOOD ORDERABLES Final Result LABORATORY [facility] [address] [facility] (1st floor, no room number) [place] [address], [facility] * Hepatitis C antibody (01/31/2025 [...] - BLOOD ORDERABLES Final Res ult LABORATORY [facility] [address] [place] [address] from Last 3 Months or Most Recently Relevant to Health Maintenance Insurance [facility] [place] [employer] [place] Advance Directives For more information, please contact: [phone] * Full Code (Latest Code Status on File) Date Activated Date Inactivated Comments 01/30/2025 4:46 AM 02/01/2025 3:06 PM All basic and advanced life-sustaining interventions are performed as appropriate Question Answer Comments Code status determined by: Discussion with gurpreete nt/ legal decision maker Care Teams Advertising Assistant Relationship Specialty Start Date End Date Chani Boudreaux PA-C [facility] [address] [place] [address] PCP - General Physician Clinical Business Manager 12/21/23 Marylu Donis [address] [place] [address] 03/09/16
--- OUTSIDE RECORDS SUMMARY | 2025-05-06 16:02 | XMS_ITS | Encounter Summary ---
Author Organization [facility] Address [address] [place] [address]. 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
--- OUTSIDE RECORDS SUMMARY | 2025-05-06 16:02 | XMS_ITS | Encounter Summary ---
Author Organization [facility] Address [address] [place] [address]. 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
--- OUTSIDE RECORDS SUMMARY | 2025-05-06 16:02 | XMS_ITS | Encounter Summary ---
Author Organization [facility] Address [address] [place] [address] Care Team Providers Care Waterside Worker Name Role Phone Miladis Rubi MD Primary Care Provider [phone] Clinic, Marylu Sargent Primary Care Provider [phone] Miladis Rubi MD Unavailable [phone] Clinic, Marylu Sargent Unavailable [phone] Cherry Muñoz Primary Care Provid er Chani Boudreaux PA-C Primary Care Provider Reason for Referral * - Closed Specialty Diagnoses / Procedures Referred By Contanabell t Referred To Contact Diagnoses Unspecified complication of , antepartum Renee Page MD [address] [place] [address] Phone: tel: fax: Referral ID Status Reason Start Date Expiration Date Visits Re quested Visits Authorized [id number] Closed 03/03/2013 08/30/2013 1 1 Question Answer [facility] Location [facility] Number of fetuses 1 M Consultation w/Ultrasound Yes fax [phone] clinic name [facility] [phone] Comments >> Patient may proceed with recommendations for further testing as directed by the Maternal Medicine Specialist >> Specific reason for referral (issue/concern):limited outside scan Estimated Date of Delivery: 07-12-13 Your patient will be scheduled using [facility] Scheduling guidelines. If requesting Echo: [facility] will determine appropriate location for exam [...] where they were done to arrange for miner pick prior to your scheduled appointment. Any new CT, MRI or other procedures ordered by your specialist must be performed at a [facility] or coordinated by your clinic's referral office. >> List of current medications >> This referral request >> Any documents/labs given to you for this referral Encounter Details Date Type Department Care Team (Late st Contact Info) Description 03/03/2013 Orders Only [facility] [address] [address] Renee Page MD [address] [facility] [address] [place] [address] Unspecified complication of , antepartum (Primary Dx) Social History Tobacco Use Types Packs/Day Years Used Date Smoking Tobacco: Never Assessed Comments No Sex and Gender Information Value Date Recorded Sex Assigned at Not on file 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 [address] [place] [address] PCP - General Physician Full Roll Inspector 12/21/23 Miladis Rubi MD 03/06/13 06/11/13 [facility], Marylu Sargent [address] [place] [address] 03/09/16 documented as of this encounter
--- NOTE | 2025-05-06 16:04 | ED.GENADULT ---
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 Past medical history of neck pain, asthma. She has also been having so far unexplained episodes of abdominal pain and flank pain off on since . She has had workup as below. She has had recurrence of pain involving her right flank since about . She does recall that on Wednesday she had some visible gross hematuria with red blood in the toilet (no clots). She is not really other leigh having any urinary symptoms such as urgency, frequency, dysuria. She does note that her urine is clear chronically dark colored and never really looks completely clear (but then admits that she does not always drink enough fluids). She is not having any fever. The pain got worse today and was so bad it made her nauseous. She did not vomit. Bowel movements tend to be constipated for the past several weeks and she has been using MiraLax. She has only been passing small bowel movements each day and says that they are soft, like frosting. No hard firm bowel movements. No bloody stool. Per review of medical record from primary care visit with Dr. Boudreaux in 02/08/25... Maude Rivera is a 49-year-old female who presents to clinic today for hospital follow-up. 01/21/2025-patient was admitted to [facility] for appendicitis. She had surgical removal and was discharged with nitrofurantoin. 01/29/2025- re-eval for chest pain and abdominal pain. Ended up being admitted for hepatitis. Today patient reports: - 2 days after discharge, had increased pain. Gave more rest/time off work, and oxycodone. Ended up admitted at the hospital for hepatitis. It sounds like they initially thought that she had an overdose of Tylenol, but her levels did not equate to this. I guess there is also some conversation regard to possible autoimmune hepatitis? Could GI did consult, but it sounds like the hospitalist service discharge her as her levels had improved but not normalized. Patient is supposed to follow-up with GI, she has not heard from them as of yet, but plans to call today or tomorrow to schedule. No family history of autoimmune hepatitis. The patient has had her gallbladder removed She drinks a very rare to no alcohol No other thing she notes is that starting in December, she developed new type of headaches compared to her previous migraines She was referred to [facility]. He is she has a note dated 03/29/2025 in her medical record from [place] [facility]. abnormal liver function tests. In January she had AST of 308, ALT of 3 8, alk-phos of 187, bilirubin 0.7. Also had thrombocytopenia with platelet count was 103. Per [facility] note.. 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 Most recent liver labs showed substantial improvement and almost normalization. We will recheck LFTs to reassess. Others serologic workup essentially unremarkable aside from elevated ferritin and borderline positive CARLOS. Suspect ferritin elevated as an acute phase reactant rather than reflective on iron overload. Other an iron studies were within acceptable ranges. Given abdominal pain, if LFTs have increased or remains substantially elevated, could consider further evaluation with MRCP. In terms of her left flank pain, NG was concerned that she may have a urinary infection or kg so, or, less likely, urinary tract malignancy. Related Data Home Medications ?Medication ?Instructions ?Recorded ?Confirmed sumatriptan succinate 25 mg tablet 25 mg PO 06/25/23 03/28/25 calcium carbonate (Tums) 200 mg PO BID 08/27/23 03/30/25 Previous Rx's ?Medication ?Instructions ?Recorded ipratropium 0.5 mg-albuterol 3 mg 1 ml inhalation QID #90 mL 06/25/23 (2.5 mg base)/3 mL nebulization soln ibuprofen 600 mg tablet 600 mg PO Q6H PRN Pain 14 days #30 09/15/23 tabs propranolol 80 mg capsule,24 80 mg PO QDAY #90 caps 03/28/25 hr,extended release sumatriptan succinate 100 mg tablet See Rx Instructions PO .COMPLEX #9 03/28/25 tabs albuterol sulfate 90 mcg/actuation 2 inh inhalation Q4H PRN shortness 04/19/25 aerosol inhaler of breath or wheezing #8.5 grams fluticasone propionate 230 2 puff inhalation BID #12 grams 04/19/25 mcg-salmeterol 21 mcg/actuation HFA inhaler (Advair HFA) fluticasone 250 mcg-salmeterol 50 1 inh inhalation BID #60 ea 04/23/25 mcg/dose blistr powdr for inhalation (Advair Diskus) cephalexin 500 mg capsule 500 mg PO BID #14 caps 05/06/25 hydrocodone 5 mg-acetaminophen 325 1 tab PO Q4-6H PRN pain #10 tabs 05/06/25 mg tablet ondansetron 4 mg disintegrating 4 mg PO Q8H PRN nausea and 05/06/25 tablet vomiting #10 tabs Allergies Allergy/AdvReac Type Severity Reaction Status Date / Time bee venom protein (honey bee) Allergy Severe Verified 03/30/25 07:43 levofloxacin Allergy Severe tendon Verified 03/30/25 07:43 rupture morphine Allergy Severe Verified 03/30/25 07:43 amoxicillin Allergy Intermediate Hives Verified 03/30/25 07:43 nitrofurantoin Allergy Severe Uncoded 03/28/25 15:01 macrocrystal-monohydrate [facility] Medical History Cervical pain (neck) ?M54.2 - Cervicalgia (ICD-10) History of miscarriage ?Z87.59 - Personal history of other complications of , childbirth and the puerperium (ICD-10) History of squamous cell carcinoma ?Z85.89 - Personal history of malignant neoplasm of other organs and systems (ICD-10) Asthma ?J45.909 - Unspecified asthma, uncomplicated (ICD-10) Surgical History History of appendectomy (~12/2024) ?Z90.49 - Acquired absence of other specified parts of digestive tract (ICD-10) History of esophagogastroduodenoscopy (EGD) (07/2023) ?Z98.890 - Other specified postprocedural states (ICD-10) History of tonsillectomy ?Z90.89 - Acquired absence of other organs (ICD-10) History of hernia repair ?Z98.890 - Other specified postprocedural states (ICD-10) ?Z87.19 - Personal history of other diseases of the digestive system (ICD-10) History of cholecystectomy ?Z90.49 - Acquired absence of other specified parts of digestive tract (ICD-10) Family History Other Diabetes High blood pressure Lung cancer Melanoma Pancreatic cancer Throat cancer Social History Smoking Status: Former smoker What tobacco products do you use: cigarettes Smoking quit date/years: <= 15 years ago Do you use any of these nicotine containing products: None How often do you have a drink containing alcohol: monthly or less Alcohol type: beer How many standard drinks containing alcohol do you have on a typical day: 1 or 2 How often do you have six or more drinks on one occasion: Never AUDIT-C Alcohol total score: 1 Non-prescribed substance use: denies use Caffeine: Yes (1-3 cups of coffee per day) Are you using contraception or practicing any form of control: Yes (Abstence) Exam Narrative: Exam Narrative: Constitutional: Appears well-developed and well-nourished. Alert. Conversant and polite. Non toxic. HENT: Head: Atraumatic. Nose: Nose normal. Mouth/Throat: Oral mucosa is clear and moist. no trismus. Pharynx normal. Tonsils symmetric. No tonsillar enlargement, erythema, or exudate. Eyes: Conjunctivae normal. EOM normal. Pupils equal, round, and reactive to light. No scleral icterus. Neck: Normal range of motion. Neck supple. No tracheal deviation present. Cardiovascular: Normal rate, regular rhythm. No gallop. No friction rub. No murmur heard. Symmetric radial artery pulses Pulmonary/Chest: Effort normal. No stridor. No respiratory distress. No wheezes. No rales. No rhonchi . No tenderness. Abdominal: Soft. Bowel sounds normal. No distension. No mass or HSM. Right CVA, right upper quadrant, epigastric, right lower quadrant>> left upper quadrant tenderness. No rebound. No guarding. Musculoskeletal: RUE: Normal range of motion. No tenderness. No deformity LUE: Normal range of motion. No tenderness. No deformity RLE: Normal range of motion. No edema. No tenderness. No deformity LLE: Normal range of motion. No edema. No tenderness. No deformity Neurological: Alert and oriented to person, place, and time. Normal strength. CN II-VII intact. No sensory deficit. GCS eye subscore is 4. GCS verbal subscore is 5. GCS motor subscore is 6. Normal coordination Skin: Skin is warm and dry. No rash noted. No pallor. Normal capillary refill. Psychiatric: Normal mood. Normal affect. Const: Vital Signs, click to edit/add: Vital Signs - 24 hr 05/06/25 16:32 05/06/25 17:30 05/06/25 17:31 Temperature 98.2 F Pulse Rate 68 61 Pulse Rate [Pulse Oximeter] 90 Respiratory Rate 18 Blood Pressure 139/92 H Blood Pressure [Ri ght Upper Arm] 130/90 H Pulse Oximetry 96 96 96 Oxygen Delivery Me thod Room Air 05/06/25 17:32 05/06/25 17:45 05/06/25 17:47 Temperature Pulse Rate 57 L 48 L 56 L Pulse Rate [Pulse Oximeter] Respiratory Rate Blood Pressure 153/83 H 133/76 Blood Pressure [Ri ght Upper Arm] Pulse Oximetry 96 96 96 Oxygen Delivery Me thod 05/06/25 17:48 05/06/25 18:00 05/06/25 18:01 Temperature Pulse Rate 54 L 53 L 51 L Pulse Rate [Pulse Oximeter] Respiratory Rate Blood Pressure 135/87 Blood Pressure [Ri ght Upper Arm] Pulse Oximetry 97 96 96 Oxygen Delivery Me thod Course Course ED Course: Recheck-pain improved after Toradol. Nausea improved after Zofran. She is feeling better. Awaiting CT. Labs look normal. Patient feels like she can provide urinalysis. Vital Signs Vital signs: Initial Vital Signs Temperature 98.2 F 05/06/25 16:32 Temperature Source Temporal Artery Scan 05/06/25 16:32 Pulse Rate 90 05/06/25 16:32 Respiratory Rate 18 05/06/25 16:32 Blood Pressure 130/90 H 05/06/25 16:32 Blood Pressure Mean 103 05/06/25 16:32 Pulse Oximetry 96 05/06/25 16:32 Oxygen Delivery Method Room Air 05/06/25 16:32 Vital Signs Temperature 98.2 F 05/06/25 16:32 Pulse Rate 90 05/06/25 16:32 Respiratory Rate 18 05/06/25 16:32 Blood Pressure 130/90 H 05/06/25 16:32 Pulse Oximetry 96 05/06/25 16:32 Oxygen Delivery Method Room Air 05/06/25 16:32 Temperature 98.2 F 05/06/25 16:32 Pulse Rate 51 L 05/06/25 18:01 Respiratory Rate 18 05/06/25 16:32 Blood Pressure 135/87 05/06/25 18:01 Pulse Oximetry 96 05/06/25 18:01 Oxygen Delivery Method Room Air 05/06/25 16:32 Medications Administered Medications: Discontinued Medications Generic Name Dose Route Start Last Admin Trade Name Freq PRN Reason Stop Dose Admin Sodium Chloride 1,000 mls @ 1,000 mls/hr 05/06/25 17:30 05/06/25 17:27 0.9 % Sodium Chloride 1000 Ml IV 05/06/25 18:29 1,000 mls/hr .Q1H CELESTINO Administration Ketorolac Tromethamine 15 mg 05/06/25 17:03 05/06/25 17:21 Ketorolac 15 Mg/Ml Inj IVP 05/06/25 17:04 15 mg ONCE ONE Administration Ondansetron HCl 4 mg 05/06/25 17:03 05/06/25 17:22 Ondansetron 2 Mg/Ml Inj IVP 05/06/25 17:04 4 mg ONCE ONE Administration Medical Decision Making MDM Narrative Medical decision making narrative: Presented to the Emergency Department with right flank pain and right>> left-sided abdominal pain. She has had trouble with pain like this off and on for several months but it has been worse for the past her for days and also associated with hematuria notable 2 days ago. The differential diagnosis of abdominal pain includes: Kidney stone, pyelonephritis, complication of distant appendectomy (done in December), Bowel Obstruction, Ulcer, Ischemia, Cholecystitis, Diverticulitis, Pancreatitis, UTI, kidney stone, Enteritis/Colitis, amongst many other etiologies. Laboratory testing does not reveal a cause for the patient's pain. White count normal. Platelet count normal. LFTs were previously abnormal but now returned normal. Kidney function. Imaging is noted to be normal save for an exophytic left renal mass. Discussed this in detail with the patient and her and they will follow up PCP for renal protocol CT for further evaluation.. The exact etiology of the abdominal pain is not clear at this time. Urinalysis does show signs of infection with 5-10 white cells per high-power field. Will treat with a course of cephalexin 500 b.i.d. for 7 days. Unclear if the UTIs with causing multiple pain or not. Would recommend close outpatient follow-up PCP for further workup. Consider need for endoscopy to look for ulcer disease or duodenal ulcer. Also consider need for MRCP. LFTs are normal today but if she has persistent right upper quadrant/right flank pain, MR GUTIERREZ had been suggested by [facility] during her last visit. No life threatening cause or need for emergent surgery or hospital admission is detected today. The patient was advised that if symptoms do not completely resolve within another 12-24 hours re-evaluation with primary care or return to the ED is indicated. The patient also understands that if they worsen, they should return to the ER right away. I discussed the uncertainty about the diagnosis and answered the patient's questions. Abdominal pain return precautions discussed. Prescription for cephalexin 500 b.i.d. for 7 days Providence 1 tablet q.4 to 6 hours p.r.n.. She will use Tylenol or ibuprofen 1st. Providence only if pain uncontrolled by other meds. Opiate precautions reviewed. 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 Zofran if needed for nausea. Lab Data Labs: Lab Results 05/06/25 Range/Units 16:43 WBC 6.94 (4.50-11.00) K/uL RBC 4.28 (4.00-5.20) m/uL Hgb 12.8 (12.0-16.0) gm/dL Hct 39.2 (33.0-51.0) % MCV 92 (80-100) fL MCH 30 (26-34) pg MCHC 33 (32-36) gm/dL RDW Coeff of Edvin 12.3 (11.5-15.5) % Plt Count 166 (140-440) K/uL Neut % (Auto) 59.5 (42.0-72.0) % Lymph % (Auto) 28.0 (20-44) % [place] % (Auto) 8.9 (0.0-11.0) % Eos % (Auto) 2.9 (0.0-7.0) % Baso % (Auto) 0.6 (0.0-3.0) % Neut # (Auto) 4.13 (1.7-7.0) K/uL Lymph # (Auto) 1.94 (0.90-2.90) K/uL [place] # (Auto) 0.60 (0.00-0.90) K/UL Eos # (Auto) 0.20 (0.00-0.50) K/uL Baso # (Auto) 0.04 (0.00-0.30) K/uL Abs Immat Gran (auto) 0.01 (0.00-0.30) K/uL Imm/Tot Granulo (auto) 0.1 % Sodium 138 (135-149) mmol/L Potassium 4.0 (3.6-5.1) mmol/L Chloride 104 (96-114) mmol/L Carbon Dioxide 29 (20-32) mmol/L Anion Gap 5 L (7-15) mEq/L BUN 12 (5-24) mg/dL Creatinine 0.6 (0.5-1.5) mg/dL Estimated Creat Clear 107.34 Estimated GFR 111 ml/min Glucose 89 (60-115) mg/dL Calcium 8.6 (8.4-10.6) mg/dL Total Bilirubin 0.3 (0.1-1.5) mg/dL AST 25 (12-35) U/L ALT 21 (4-35) U/L Alkaline Phosphatase 96 (40-150) U/L Total Protein 7.4 (6.0-8.3) g/dL Albumin 4.2 (3.3-5.0) g/dL Lipase 146 (23-300) U/L Urine Color Yellow (Yellow) Urine Appearance Clear (Clear) Urine pH 6.5 (5.0-8.5) Ur Specific [place] 1.025 (1.000-1.030) Urine Protein Negative (Negative) Urine Glucose (UA) Negative (Negative) Urine Ketones Negative (Negative) Urine Blood Negative (Negative) Urine Nitrite Negative (Negative) Urine Bilirubin Negative (Negative) Urine Urobilinogen 1.0 (0.2-1.0) Ur Leukocyte Esterase Negative (Negative) Urine RBC 0-2 (0-2) Urine WBC 5-10 A (0-5) Ur Squamous Epith Cells None (None-Few) Urine Bacteria Moderate A (None) Urine HCG, Qual Negative (Negative) Imaging Data CT scan - abdomen: Attestation: I have reviewed the pertinent imaging results. Radiologist's impression: IMPRESSION: 1. No acute findings in the abdomen or pelvis. Small nonobstructing left renal calculus no hydronephrosis. Exophytic lesion off the left superior kidney is incompletely assessed would recommend routine follow-up with CT renal protocol with and without contrast or ultrasound could be considered as well. 2. Five millimeter left lower nodule follow-up per Fleischner society guidelines Discharge Plan Discharge Clinical Impression: Acute right flank pain, Abdominal pain, Left kidney mass, UTI (urinary tract infection) Patient Disposition: Home, Self-Care Condition: Stable Instructions: Urinary Tract Infection in Women (DC), Abdominal Pain (ED) Additional Instructions: As we discussed, please come back to the ER right away if you have problems especially worsening or uncontrolled pain, uncontrolled vomiting, or new symptoms such as fever, changing pain, weakness, or other problems Please recheck with your regular doctor within 3-5 days. Your regular doctor can recheck your urinary tract infection. Also have your regular doctor arrange further testing for your left kidney bump. Please take the antibiotic twice daily for 7 days to treat urinary tract infection. The [facility] ER will call you if your urine culture grows an unusual strain of bacteria and we need to change her antibiotic. You should start to feel better within about 48-72 hours. To treat your pain you can use Tylenol or ibuprofen 1st. Use the prescription pain killer (Providence) for pain uncontrolled by the other medications. Use the nausea medication (Zofran) as needed for nausea or vomiting. Prescriptions: New hydrocodone-acetaminophen 5-325 mg tablet 1 tab PO Q4-6H PRN (Reason: pain) Qty: 10 0RF cephalexin 500 mg capsule 500 mg PO BID Qty: 14 0RF ondansetron 4 mg tablet,disintegrating 4 mg PO Q8H PRN (Reason: nausea and vomiting) Qty: 10 0RF No Action calcium carbonate [Tums] 200 mg calcium (500 mg) tablet,chewable 200 mg PO BID propranolol 80 mg capsule,extended release 24 hr 80 mg PO QDAY Qty: 90 0RF Patient Comments: new medication to start today sumatriptan succinate 100 mg tablet See Rx Instructions PO .COMPLEX Qty: 9 0RF Rx Instructions: take 1 tab at onset of headache; if no relief, may repeat 1 tab after at least 2 hrs; max = 2 tabs/24 hrs PO sumatriptan succinate 25 mg tablet 25 mg PO ipratropium-albuterol 0.5 mg-3 mg(2.5 mg base)/3 mL solution for nebulization 1 ml inhalation QID Qty: 90 2RF ibuprofen 600 mg Tablet 600 mg PO Q6H PRN (Reason: Pain) 14 Days Qty: 30 0RF albuterol sulfate 90 mcg/actuation HFA aerosol inhaler 2 inh inhalation Q4H PRN (Reason: shortness of breath or wheezing) Qty: 8.5 3RF fluticasone propion-salmeterol [Advair HFA] 230-21 mcg/actuation HFA aerosol inhaler 2 puff inhalation BID Qty: 12 3RF Rx Instructions: 2 puffs twice daily fluticasone propion-salmeterol [Advair Diskus] 250-50 mcg/dose blister with device 1 inh inhalation BID Qty: 60 3RF Rx Instructions: one inhalation twice daily Follow Up/Referrals: Chani Boudreaux PA-C [Primary Care Provider, Family Practice] Stand Alone Forms: [employer] Info Instructions
--- NOTE | 2025-05-06 16:42 | CRLHL7_ITS ---
For Patients: As a result of the Century Cures Act, medical imaging exams and procedure reports are released immediately into your electronic medical record. You may view this report before your referring provider. If you have questions, please contact your health care provider. INDICATION: Abdominal pain TECHNIQUE: CT abdomen and pelvis without contrast. COMPARISON: None. FINDINGS: Lower chest 5 millimeter left lower: Lobe nodule 11/18 Liver: Normal in size and attenuation. No suspicious masses. Gallbladder and bile ducts: Cholecystectomy. Pancreas: Unremarkable. No mass or inflammation. Spleen: Normal in size. No masses. Adrenal glands: Normal in size. No nodules. Kidneys: Small nonobstructing left lower pole calculus. Left superior lesion incompletely assessed on this noncontrast study cortical scarring left kidney GI tract: Unremarkable. Normal in caliber. No sign of mass or inflammation. Appendectomy Diverticulosis. Vasculature: Abdominal aorta is normal in caliber. Lymph nodes: No lymphadenopathy. Peritoneum/Abdominal Wall: Small fat containing left inguinal hernia Pelvis: Unremarkable. No pelvic masses. 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 No acute findings in the abdomen or pelvis. Small nonobstructing left renal calculus no hydronephrosis. Exophytic lesion off the left superior kidney is incompletely assessed would recommend routine follow-up with CT renal protocol with and without contrast or ultrasound could be considered as well. 2. Five millimeter left lower nodule follow-up per Fleischner society guidelines Please note that all CT scans at this facility use dose modulation, iterative reconstruction, and/or weight-based dosing when appropriate to reduce radiation dose to as low as reasonably achievable. Dictated by Charmaine Nath MD @ 05/06/2025 5:27:35 PM (Electronically Signed)
[2025-05-06 17:15] LABS: Hematocrit 39.2 % (33.0-51.0); Hemoglobin* 12.8 gm/dL (12.0-16.0); Immature Granulocytes Abs Auto 0.01 K/uL (0.00-0.30); Immature Granulocytes Pct Auto 0.1 %; Lymphocytes Absolute Auto 1.94 K/uL (0.90-2.90); Mean Corpuscular HGB Conc 33 gm/dL (32-36); Mean Corpuscular Hemoglobin 30 pg (26-34); Mean Corpuscular Volume 92 fL (80-100); RDW Coefficient of Variation % 12.3 % (11.5-15.5); Red Blood Count 4.28 m/uL (4.00-5.20); White Blood Count* 6.94 K/uL (4.50-11.00)
[2025-05-06 17:19] LABS: Slide Review Reflex No
[2025-05-06] MEDS: ONDANSETRON 2 MG/ML inj 4 MG IVP (17:22)
[2025-05-06 17:27] LABS: Albumin* 4.2 g/dL (3.3-5.0); Chloride* 104 mmol/L (96-114); Sodium* 138 mmol/L (135-149)
[2025-05-06 17:28] LABS: Potassium* 4.0 mmol/L (3.6-5.1)
[2025-05-06 17:30] LABS: Alanine Aminotransferase* 21 U/L (4-35); Alkaline Phosphatase* 96 U/L (40-150); Anion Gap 5 mEq/L (7-15); Aspartate Amino Transferase* 25 U/L (12-35); Bilirubin Total* 0.3 mg/dL (0.1-1.5); Blood Urea Nitrogen* 12 mg/dL (5-24); Carbon Dioxide* 29 mmol/L (20-32); Creatinine* 0.6 mg/dL (0.5-1.5); Est. Creatinine Clearance* 107.34; Estimated Glomerular Filt Rate 111 ml/min; Total Protein* 7.4 g/dL (6.0-8.3)
[2025-05-06 17:31] LABS: Calcium* 8.6 mg/dL (8.4-10.6); Glucose* 89 mg/dL (60-115)
[2025-05-06 18:18] LABS: Appearance Urine Clear (Clear)
[2025-05-06 19:12] LABS: Ur HCG Qualitative* Negative (Negative)
== END 2025-05-06 19:51 | disposition home or self-care (01) ==
PROVIDERS: Emergency Provider Emergency Medicine; PCP Physician Assistant Medical
DX: N39.0 Urinary tract infection, site not specified (principal); R10.9 Unspecified abdominal pain; N28.89 Other specified disorders of kidney and ureter
CPT/HCPCS: 36415; 74176; 80053; 81001; 81025; 83690; 85025; 87086; 96374; 96375; 99284; A9270; J1885; J2405; J7030

== ENCOUNTER 2025-05-08 17:30 | Outpatient (CLI) | payer BC, SELFPAY | END 2025-05-08 17:31 | disposition home or self-care (01) | PROVIDERS: PCP Physician Assistant Medical | DX: R10.9 Unspecified abdominal pain (principal) | CPT/HCPCS: 80076; 83690 ==

== ENCOUNTER 2025-06-18 10:32 | Outpatient (CLI) | payer BC, SELFPAY ==
--- NOTE | 2025-06-18 11:00 | CRLHL7_ITS ---
For Patients: As a result of the Century Cures Act, medical imaging exams and procedure reports are released immediately into your electronic medical record. You may view this report before your referring provider. If you have questions, please contact your health care provider. INDICATION: EVAL LEFT RENAL CYST TECHNIQUE: CT abdomen renal CT without and with 129CC [id number] intravenous contrast. Contrast images were obtained in the nephrographic and delayed phases. COMPARISON: 05/06/2025 FINDINGS: KIDNEYS: The unenhanced images demonstrate a punctate stone on the left. The kidneys are normal in caliber and demonstrate normal uptake and excretion of IV contrast. No masses. The renal collecting systems and ureters are symmetrical, normal in caliber, and without evidence of mass or filling defect. OTHER: Similar nodule within the left lower lobe measures 5.9 millimeters. Additional nodule in the right lower lobe measures 4.9 millimeters. No pleural effusion. No intrahepatic mass. Gallbladder absent. Incidental splenule. No adrenal nodule. Pancreas normal. No adenopathy. No hiatal hernia. No bowel obstruction. No fracture. IMPRESSION: 1. No renal lesion. Incidental lobular contour of the superior pole left kidney. 2. Punctate nonobstructing left renal calculus. 3. Small bilateral pulmonary nodules measuring up to 5.9 millimeters. Please note that all CT scans at this facility use dose modulation, iterative reconstruction, and/or weight-based dosing when appropriate to reduce radiation dose to as low as reasonably achievable. Dictated by Mason Patterson MD @ 06/18/2025 3:01:33 PM (Electronically Signed)
== END 2025-06-18 10:33 | disposition home or self-care (01) ==
LOC: CT 10:33
PROVIDERS: PCP Physician Assistant Medical; Visit Provider Physician Assistant Medical
DX: N28.89 Other specified disorders of kidney and ureter (principal); N20.0 Calculus of kidney; R91.8 Other nonspecific abnormal finding of lung field
CPT/HCPCS: 74170; Q9967